=== PATIENT | female | born 1975 | race Caucasian/White ===

== ENCOUNTER 2020-04-13 15:13 | Outpatient (REF) | payer OTHER, SELFPAY ==
--- NOTE | 2020-04-13 15:16 | MR_ITS ---
EXAMINATION: MR BREAST WITHOUT AND WITH CONTRAST, BILATERAL CLINICAL INFORMATION: High-risk screening. Strong family history of breast cancer; sister age 38. Dense breasts. Prior benign biopsies. COMPARISON: 04/10/2019. 01/30/2018. 12/10/2015, and priors. Mammography from 04/28/2019. TECHNIQUE: Imaging was performed with a dedicated breast coil. Prior to the administration of contrast, bilateral axial T1 and bilateral axial T2 weighted sequences were obtained. After the uneventful administration of?6.5 mL of Gadavist, dynamic contrast-enhanced VIBRANT series through the breasts in the axial plane were performed. Subtracted images were performed and reviewed. A delayed sagittal sequence through both breasts was acquired. Additionally, CAD postprocessing, including maximum intensity projections, 3-D reconstructions and kinetic analysis, were performed an independent workstation and reviewed by the interpreting radiologist is a portion of this exam. Images are slightly degraded by motion artifact. FINDINGS: The breasts are comprised of heterogeneous fibroglandular elements. The tissue undergoes mild background enhancement. LEFT BREAST: There is an enhancing 16 mm mass in the retroareolar left lower inner quadrant containing a biopsy clip. Given differences in technique, this is not significantly changed from priors. An oval T2 bright 7 mm mass is present at 9 o'clock (image 58/112) 3.5 cm from the nipple. Not well seen on 2019 exam, but similar in appearance when compared with the 2018 exam. No new left breast mass, dominant non-mass enhancement or architectural distortion. RIGHT BREAST: There is an oval, 12 mm enhancing mass in the right breast 3 o'clock central position projecting 3.5 cm from the nipple (image 60/112). No change compared with prior exams. Clip artifact at 2 o'clock without associated enhancement. There is an oval 12 mm enhancing mass in the 12 o'clock posterior position (image 42/112) unchanged compared with priors. Clip artifact in the deep central right breast without associated enhancement. No new left breast mass, dominant non-mass enhancement or architectural distortion. There is no suspicious internal mammary chain or axillary adenopathy. Limited views of the chest and abdomen are unremarkable. MR/MR breast BI wo/w con IMPRESSION: Multiple bilateral stable breast masses. Overall enhancement has decreased compared with priors. No screening MR evidence of breast malignancy. ASSESSMENT: LEFT BREAST: BI-RADS Category 2, benign findings. RIGHT BREAST: BI-RADS Category 2, benign findings. RECOMMENDATIONS: Repeat bilateral breast MRI in 12 months' time.
== END 2020-04-13 15:14 | disposition home or self-care (01) ==
LOC: HO.MRI 15:13
PROVIDERS: Visit Provider Obstetrics & Gynecology
DX: Z80.3 Family history of malignant neoplasm of breast (principal)
CPT/HCPCS: 77049; A9585

== ENCOUNTER 2020-04-30 09:47 | Outpatient (REF) | payer OTHER, SELFPAY ==
--- NOTE | ~2020-04-30 | MM_ITS ---
EXAMINATION: MM SCREENING DIGITAL BREAST TOMOSYNTHESIS, BILATERAL CLINICAL INFORMATION: Screening. Asymptomatic. Prior history benign bilateral breast biopsies, most recent right 2018 (fibroadenoma). Family history breast cancer sister, age 38. The lifetime risk of breast cancer based on the Tyrer-Cuzick Model is 36%. COMPARISON: Mammography: 04/28/2019, 11/28/2017, 11/22/2017; MRI breasts 04/13/2020. TECHNIQUE: Digital breast tomosynthesis is performed in both the craniocaudal and mediolateral oblique views along with computer-aided detection (CAD). Synthesized 2D images are generated from the tomosynthesis. FINDINGS: The breasts are heterogeneously dense, which may obscure small masses (ACR BI-RADS breast composition Category c). There is a fibronodular parenchymal pattern similar to prior exams. There is no developing density or interval significant mass or architectural abnormality. Biopsy clip marker again seen anterior left breast and 3 biopsy clip markers on the right with stable nodularity central inner right breast. There are no abnormal calcifications. The axilla and skin contours are unremarkable. No significant changes from prior studies. MM/MM tomosynthesis screening BI IMPRESSION: No mammographic evidence of malignancy. ASSESSMENT: BI-RADS 2: Benign RECOMMENDATION: 1. Routine annual mammography screening. 2. The lifetime risk of breast cancer based on the Tyrer-Cuzick Model is 36%. Additional annual adjunct screening with breast MRI may be of benefit in women with a risk score of 20% or greater. This patient's information was entered into a reminder system with a target due date for their next mammogram.
== END 2020-04-30 09:48 | disposition home or self-care (01) ==
LOC: HO.MAMMO 09:47
PROVIDERS: Visit Provider Obstetrics & Gynecology
DX: Z12.31 Encounter for screening mammogram for malignant neoplasm of breast (principal)
CPT/HCPCS: 77063; 77067

== ENCOUNTER 2020-05-17 15:35 | Outpatient (REF) | payer OTHER, SELFPAY | END 2020-05-17 15:36 | disposition home or self-care (01) | LOC: HO.LAB 15:35 | PROVIDERS: PCP Family Medicine; Visit Provider Advanced Practice Midwife | DX: N93.9 Abnormal uterine and vaginal bleeding, unspecified (principal); D24.9 Benign neoplasm of unspecified breast; F39 Unspecified mood [affective] disorder; F17.210 Nicotine dependence, cigarettes, uncomplicated; Z32.02 Encounter for pregnancy test, result negative; Z79.810 Long term (current) use of selective estrogen receptor modulators (SERMs) | CPT/HCPCS: 58100; 81025; 88305 ==

== ENCOUNTER → 2020-06-10 15:13 | Outpatient (BNVA) | payer OTHER, SELFPAY | PROVIDERS: PCP Family Medicine; Visit Provider Internal Medicine Gastroenterology ==

== ENCOUNTER 2020-06-11 11:29 | Outpatient (REF) | payer OTHER, SELFPAY ==
[2020-06-11 13:04] LABS: MANUAL DIFF FLAG NO
[2020-06-11 13:22] LABS: Eosinophils Absolute Auto 0.1 X10*3/uL (0.0-0.4); Eosinophils Percent Auto 1.7 % (0-4); Hematocrit 36.9 % (37-47); Hemoglobin 12.4 g/dl (12.0-16.0); Imm Gran Abs Auto 0.01 X10*3/uL (0.00-0.03); Imm Gran Pct Auto 0.2 % (0.0-0.4); Lymphocytes Absolute Auto 1.7 X10*3/uL (1.2-4.9); Lymphocytes Percent Auto 40.5 % (20-40); Mean Corpuscular HGB Conc 33.6 g/dl (31.0-35.0); Mean Corpuscular Hemoglobin 32.7 pg (27.0-33.0); Mean Corpuscular Volume 97.4 fL (80-98); Mean Platelet Volume 10.9 fL (9.4-12.3); Monocytes Absolute Auto 0.3 X10*3/uL (0.1-1.2); Neutrophils Absolute Auto 2.1 X10*3/uL (2.0-8.3); Neutrophils Percent Auto 50.6 % (45-73); Platelet Count 203 X10*3/uL (160-400); Red Blood Count 3.79 X10*6/uL (4.20-5.50); Red Cell Distribution Width 11.8 % (11.0-16.0); White Blood Count 4.2 X10*3/uL (4.8-10.8)
[2020-06-11 13:24] LABS: C Reactive Protein 0.05 mg/dL (< or = 0.50); Gamma Glutamyl Transpeptidase 74 U/L (7-33)
[2020-06-11 13:49] LABS: Ferritin 84 ng/mL (10-250); Vitamin D 25-OH Total 10.1 ng/mL (>30)
[2020-06-13 21:11] LABS: Transglutaminase Ab IgG 1 U/mL; Transglutaminase IgA 1 U/mL
[2020-06-18 11:24] LABS: Prometheus Celiac Genetics SEE SEPERATE REPORT
== END 2020-06-11 11:30 | disposition home or self-care (01) ==
LOC: HO.LAB 11:29
PROVIDERS: Visit Provider Internal Medicine Gastroenterology
DX: R14.0 Abdominal distension (gaseous) (principal); D64.9 Anemia, unspecified
CPT/HCPCS: 36415; 81382; 82306; 82728; 82977; 83516; 84443; 85025; 86140

== ENCOUNTER 2021-02-03 13:46 | Outpatient (REF) | payer OTHER, SELFPAY ==
--- NOTE | ~2021-02-03 | MR_ITS ---
EXAMINATION: MR NECK WITHOUT AND WITH CONTRAST CLINICAL INFORMATION: Follow up dermoid cyst. COMPARISON: Neck CT dated 11/02/2017. TECHNIQUE: MRI of the neck was obtained using routine sequences without and with contrast. Intravenous contrast: Gadavist 5.5 mL. FINDINGS: Again seen is a 4.8 x 3.6 x 2.8 cm cystic lesion in the midline floor of the mouth elevating the tongue and splaying the genioglossus musculature. The cystic lesion is hyperintense on T2-weighted imaging and isointense to low in signal on the T1-weighted acquisition, demonstrating facilitated diffusion (bright signal on the ADC map) and no discernible associated enhancement. The remaining soft tissues of the neck appear normal. No cervical adenopathy identified. Mild lower cervical spondylosis noted. The craniovertebral junction is normal. The imaged portions of the brain demonstrate no acute abnormality. Rightward nasal septal deviation noted. Trace mucosal thickening in the right maxillary antrum. The orbits are normal. The imaged portions of the brain demonstrate no acute abnormality. MR/MR orbits face neck wo/w con IMPRESSION: Relatively stable 4.8 x 3.6 x 2.8 cm cystic lesion in the midline floor of the mouth. Although facilitated diffusion evident, this lesion may still represent a dermoid/epidermoid cyst. Other differential diagnostic considerations would include a large thyroglossal duct cyst, though somewhat more anterior in position as expected relative to the hyoid bone, a lymphatic malformation, or a foregut duplication cyst.
== END 2021-02-03 13:47 | disposition home or self-care (01) ==
LOC: HO.MRI 13:46
PROVIDERS: Visit Provider Dentist Oral and Maxillofacial Surgery
DX: K09.8 Other cysts of oral region, not elsewhere classified (principal)
CPT/HCPCS: 70543; A9585

== ENCOUNTER 2021-06-25 09:45 | Outpatient (REF) | payer OTHER, SELFPAY ==
--- NOTE | ~2021-06-25 | MM_ITS ---
EXAMINATION: MM SCREENING DIGITAL BREAST TOMOSYNTHESIS, BILATERAL CLINICAL INFORMATION: Screening. Asymptomatic. Family history breast cancer, sister age 38. Personal history benign bilateral breast biopsies. The lifetime risk of breast cancer based on the Tyrer-Cuzick Model is 18%. COMPARISON: Mammography: 04/30/2020, 04/28/2019, 11/28/2017, 11/22/2017, 12/11/2016, 12/10/2015, 10/13/2014, 01/23/2014; MRI breasts 04/13/2020. TECHNIQUE: Digital breast tomosynthesis is performed in both the craniocaudal and mediolateral oblique views along with computer-aided detection (CAD). Synthesized 2D images are generated from the tomosynthesis. Additional left MLO view is provided. FINDINGS: The breasts are heterogeneously dense, which may obscure small masses (ACR BI-RADS breast composition Category c). Fibronodular parenchymal pattern is similar to prior studies. There is no developing density or interval mass or architectural abnormality. Again, there are biopsy clip markers anterior lower inner left breast and 3 clip markers on the right. There are no abnormal calcifications. A few punctate dermal calcifications 5:00 left breast are similar to prior remote exams. The axilla and skin contours are unremarkable. There are no significant changes. MM/MM tomosynthesis screening BI IMPRESSION: No mammographic evidence of malignancy. ASSESSMENT: BI-RADS 2: Benign RECOMMENDATION: Routine annual mammography screening. This patient's information was entered into a reminder system with a target due date for their next mammogram.
== END 2021-06-25 09:46 | disposition home or self-care (01) ==
LOC: HO.MAMMO 09:45
PROVIDERS: PCP Family Medicine; Visit Provider Family Medicine
DX: Z12.31 Encounter for screening mammogram for malignant neoplasm of breast (principal)
CPT/HCPCS: 77063; 77067

== ENCOUNTER 2021-07-27 11:07 | Outpatient (REF) | payer OTHER, SELFPAY ==
--- NOTE | ~2021-07-27 | MR_ITS ---
EXAMINATION: MR BREAST WITHOUT AND WITH CONTRAST, BILATERAL CLINICAL INFORMATION: 46-year-old for high-risk screening family history sister age 38, dense breasts. COMPARISON: MRI 04/13/2020, 04/10/2019, 01/30/2018 and correlation to mammogram of 06/25/2021. TECHNIQUE: Imaging was performed with a dedicated breast coil. Prior to the administration of contrast, bilateral axial T1 and bilateral axial T2 weighted sequences were obtained. After the uneventful administration of?6 mL of Gadavist, dynamic contrast-enhanced VIBRANT series through the breasts in the axial plane were performed. Subtracted images were performed and reviewed. A delayed sagittal sequence through both breasts was acquired. Additionally, CAD post-processing, including maximum intensity projections, 3-D reconstructions and kinetic analysis, were performed an independent workstation and reviewed by the interpreting radiologist is a portion of this exam. FINDINGS: Patient's fibroglandular tissue demonstrates minimal background enhancement. LEFT BREAST: There is a stable oval T2 bright mass in the 9 o'clock retroareolar position, measuring 1.5 cm. This corresponds to a biopsy-proven fibroadenoma. There are no new areas of mass or non-mass enhancement suspicious of malignancy. There are no secondary signs of malignancy such as nipple inversion or duct enhancement. There are no additional findings on T2-weighted imaging or kinetic curve analysis. RIGHT BREAST: There is a stable oval T2 bright mass with a susceptibility artifact in the 3 o'clock position, 3.5 cm from the nipple. This also represents biopsy-proven fibroadenoma. There is a stable oval T2 bright mass in the 12-1 o'clock position, 7.6 cm from the nipple. This too has characteristics of a fibroadenoma. There is a susceptibility artifact at 2 o'clock without associated enhancement. There are no new areas of mass or non-mass enhancement suspicious of malignancy. There are no secondary signs of malignancy such as nipple inversion or duct enhancement. There are no additional findings on T2-weighted imaging or kinetic curve analysis. There is no suspicious internal mammary chain or axillary adenopathy. Limited views of the chest and abdomen are unremarkable. MR/MR breast BI wo/w con IMPRESSION: Oval masses bilaterally consistent with known fibroadenomas. No new MR findings suspicious of malignancy. ASSESSMENT: LEFT BREAST: BI-RADS 2, benign. RIGHT BREAST: BI-RADS 2, benign. RECOMMENDATIONS: Routine mammographic imaging as per most recent study and MRI as per high-risk protocol.
== END 2021-07-27 11:08 | disposition home or self-care (01) ==
LOC: HO.MRI 11:07
PROVIDERS: Visit Provider Obstetrics & Gynecology
DX: R92.2 Inconclusive mammogram (principal); Z80.3 Family history of malignant neoplasm of breast
CPT/HCPCS: 77049; A9585

== ENCOUNTER 2021-10-10 11:23 | Outpatient (REF) | payer OTHER, SELFPAY ==
--- NOTE | ~2021-10-10 | US_ITS ---
EXAMINATION: US PELVIS CLINICAL INFORMATION: Abnormal uterine bleeding COMPARISON: None TECHNIQUE: Ultrasound of the pelvis is performed using both transabdominal and transvaginal transducers along with Doppler. Transvaginal imaging is performed due to inadequate visualization transabdominally. FINDINGS: Uterus: The uterus is anteverted and measures 10.5 x 6.6 x 6.1 cm. The double wall endometrial thickness is 0.5 mm. A 2.7 x 2.1 x 3.2 cm intramural myoma in the right body body. A 2.9 x 2.8 x 2.9 cm intramural myoma in the right fundus. Adnexa: Both ovaries are visualized. There is normal color flow to the adnexa. There is no ovarian torsion. There is no pelvic ascites or fluid collection. Right ovary measures 4.4 x 3.0 x 3.2 cm. The right ovary is remarkable for a 3.8 cm simple appearing benign functional cyst. No follow-up imaging recommended. Left ovary measures 3.1 x 2.6 x 2.7 cm. Left ovary is unremarkable in appearance. US/US pelvic and transvaginal IMPRESSION: 2 intramural uterine myomas measuring 3.2 cm and 2.9 cm. Right ovary is remarkable for a 3.6 cm simple appearing benign functional cyst, no follow-up imaging recommended.
== END 2021-10-10 11:24 | disposition home or self-care (01) ==
LOC: HO.US 11:23
PROVIDERS: PCP Internal Medicine; Visit Provider Advanced Practice Midwife
DX: N93.9 Abnormal uterine and vaginal bleeding, unspecified (principal)
CPT/HCPCS: 58100; 76830; 76856; 81025

== ENCOUNTER 2021-10-10 13:08 | Outpatient (REF) | payer OTHER, SELFPAY ==
[2021-10-11 09:44] LABS: BV Int Neg Control Negative (Negative); BV Int Pos Control Positive (Positive)
== END 2021-10-10 13:09 | disposition home or self-care (01) ==
LOC: HO.LAB 13:08
PROVIDERS: Visit Provider Advanced Practice Midwife
DX: N93.9 Abnormal uterine and vaginal bleeding, unspecified (principal)
CPT/HCPCS: 87480; 87510; 87660; 88305

== ENCOUNTER 2022-01-19 13:12 | Outpatient (REF) | payer OTHER, SELFPAY ==
--- NOTE | ~2022-01-19 | XR_ITS ---
EXAMINATION: XR KNEE, LEFT CLINICAL INFORMATION: Left knee pain. COMPARISON: None. TECHNIQUE: 4 views of the left knee. FINDINGS: There is mild depression of the medial femoral condyle with some adjacent small calcific/bony densities seen. Findings are suggestive of either SONK (spontaneous osteonecrosis of the knee) or an insufficiency fracture. The age is indeterminate.. No other abnormality is seen. No joint effusion present. XR/XR knee LT 3V IMPRESSION: Findings suggestive of osteonecrosis versus insufficiency fracture of the medial femoral condyle.
== END 2022-01-19 13:13 | disposition home or self-care (01) ==
LOC: HO.XRAY 13:12
PROVIDERS: PCP Internal Medicine; Visit Provider Internal Medicine
DX: M25.562 Pain in left knee (principal)
CPT/HCPCS: 73562

== ENCOUNTER 2022-02-07 17:50 | Outpatient (REF) | payer OTHER, SELFPAY ==
--- NOTE | ~2022-02-07 | MR_ITS ---
EXAMINATION: MR KNEE WITHOUT CONTRAST, LEFT CLINICAL INFORMATION: Left knee pain. Femoral condyle osteochondral lesion. COMPARISON: Left knee radiographs dated 01/19/2022. TECHNIQUE: MRI of the knee without contrast was performed using routine sequences on a high-field scanner. FINDINGS: MENISCI: Medial Meniscus: Intact. Lateral Meniscus: Intact. LIGAMENTS: Cruciate: Intact. Collateral: Intact. EXTENSOR MECHANISM: Intact. ARTICULAR CARTILAGE/BONE: Patellofemoral Compartment: Intact articular cartilage. Medial Compartment: Osteochondral lesion at the weightbearing medial femoral condyle measuring approximately 1.1 x 1.3 cm (AP by ML) with a depth of 0.3 cm. Overlying articular cartilage signal heterogeneity and surface irregularity with small foci of low T1/T2 signal. There is fluid signal along the undersurface of the lesion, indicating instability. Lateral Compartment: Intact articular cartilage. JOINT FLUID AND BURSAE: Trace joint effusion and trace Westbrook's cyst. MR/MR knee LT wo con IMPRESSION: 1. Osteochondral lesion at the weightbearing medial femoral condyle measuring up to 1.1 x 1.3 cm (AP by ML) with a depth of 0.3 cm. Fluid signal along the undersurface of the lesion, indicating instability. 2. Trace joint effusion and trace Westbrook's cyst. 3. No acute meniscal or ligamentous injury.
== END 2022-02-07 17:51 | disposition home or self-care (01) ==
LOC: HO.MRI 17:50
PROVIDERS: Visit Provider Orthopaedic Surgery
DX: M95.8 Other specified acquired deformities of musculoskeletal system (principal)
CPT/HCPCS: 73721

== ENCOUNTER → 2022-05-04 13:53 | Outpatient (BNVA) | payer OTHER, SELFPAY | PROVIDERS: PCP Internal Medicine; Visit Provider Orthopaedic Surgery | DX: Z13.89 Encounter for screening for other disorder (principal) ==

== ENCOUNTER 2022-05-19 14:37 | Outpatient (REF) | payer OTHER, SELFPAY ==
[2022-05-19 15:05] LABS: MANUAL DIFF FLAG NO
[2022-05-19 15:17] LABS: Basophils Absolute Auto 0.1 X10*3/uL (0.0-0.2); Eosinophils Absolute Auto 0.1 X10*3/uL (0.0-0.4); Eosinophils Percent Auto 0.8 % (0-4); Hemoglobin 11.7 g/dl (12.0-16.0); Imm Gran Abs Auto 0.02 X10*3/uL (0.00-0.03); Imm Gran Pct Auto 0.3 % (0.0-0.4); Lymphocytes Absolute Auto 1.8 X10*3/uL (1.2-4.9); Lymphocytes Percent Auto 30.7 % (20-40); Mean Corpuscular HGB Conc 33.4 g/dl (31.0-35.0); Mean Corpuscular Volume 98.6 fL (80.0-98.0); Mean Platelet Volume 9.7 fL (9.4-12.3); Monocytes Absolute Auto 0.4 X10*3/uL (0.1-1.2); Monocytes Percent Auto 6.9 % (2-11); Neutrophils Absolute Auto 3.6 x10*3/uL (2.0-8.3); Neutrophils Percent Auto 60.3 % (45-73); Platelet Count 290 X10*3/uL (160-400); Red Blood Count 3.55 X10*6/uL (4.20-5.50); Red Cell Distribution Width 12.7 % (11.0-16.0); White Blood Count 5.9 X10*3/uL (4.8-10.8)
[2022-05-19 15:28] LABS: Appearance Urine Cloudy; Color Urine Yellow; Glucose Urine UA Negative (Negative); Leukocyte Esterase Urine Trace (Negative); Nitrite Urine Negative (Negative); PH 5.5 (5.0-9.0); Specific Gravity - Urine 1.025 (1.005-1.025); UMIC TRIGGER UACC YES; Urine Blood Large (3+) (Negative); Urine Ketones 15 mg/dL (Negative); Urine Protein 30 (1+) mg/dL (Neg-Trace)
[2022-05-19 15:30] LABS: Bacteria Urine 1+ (None Seen); Hyaline Casts Urine 0-2 /LPF (0-2); RBC Urine >20 /HPF (0-2); UACC Culture Trigger YES
[2022-05-19 16:10] LABS: Alanine Aminotransferase 13 U/L (0-31); Albumin Level 4.3 g/dL (3.5-5.0); Alkaline Phosphatase 28 U/L (39-117); Anion Gap 11 (12-20); Aspartate Amino Transferase 28 U/L (5-31); Bilirubin Total 0.4 mg/dL (0.0-1.0); Blood Urea Nitrogen 12 mg/dL (9-16); Calcium 9.2 mg/dL (8.4-10.2); Carbon Dioxide 27 mmol/L (22-29); Chloride 107 mmol/L (96-108); Cholesterol 162 mg/dL; Estimated Glomerular Filt Rate > 60; Glucose Fasting 90 mg/dL (60-99); HDL Cholesterol 57 mg/dL; Iron 58 mcg/dL (30-160); LDL Cholesterol Calculated 97 mg/dl; Percent Iron Saturation 17 % (15-50); Potassium 3.9 mmol/L (3.3-5.1); Sodium 141 mmol/L (135-145); Total Iron Binding Capacity 345 mcg/dL (228-428); Total Protein 6.9 g/dL (6.5-8.0); Triglycerides 44 mg/dL; Unsaturated Iron Binding 287 ug/dL
[2022-05-19 16:41] LABS: Folate 17.6 ng/mL (> or = 4.0); TSH reflex Free T4 2.54 uIU/mL (0.32-4.0); Vitamin B12 657 pg/mL (200-900); Vitamin D 25-OH Total 37.1 ng/mL (>30)
== END 2022-05-19 14:38 | disposition home or self-care (01) ==
LOC: HO.LAB 14:37
PROVIDERS: PCP Internal Medicine; Visit Provider Internal Medicine
DX: Z00.00 Encounter for general adult medical examination without abnormal findings (principal); R30.0 Dysuria; L65.9 Nonscarring hair loss, unspecified; E55.9 Vitamin D deficiency, unspecified; E53.8 Deficiency of other specified B group vitamins; E78.00 Pure hypercholesterolemia, unspecified; D50.9 Iron deficiency anemia, unspecified
CPT/HCPCS: 36415; 80053; 80061; 81001; 82306; 82607; 82746; 83540; 84443; 85025; 87086

== ENCOUNTER 2022-07-24 12:06 | Outpatient (REF) | payer OTHER, SELFPAY ==
--- NOTE | ~2022-07-24 | MM_ITS ---
EXAMINATION: MM SCREENING DIGITAL BREAST TOMOSYNTHESIS, BILATERAL CLINICAL INFORMATION: Screening. Asymptomatic. Family history premenopausal breast cancer, sister age 38. The lifetime risk of breast cancer based on the Tyrer-Cuzick Model is 23%. COMPARISON: Prior mammography exams, including most recent 06/25/2021; MR breasts 07/27/2021. TECHNIQUE: Digital breast tomosynthesis is performed in both the craniocaudal and mediolateral oblique views along with computer-aided detection (CAD). Synthesized 2D images are generated from the tomosynthesis. FINDINGS: The breasts are heterogeneously dense, which may obscure small masses (ACR BI-RADS breast composition Category c). Parenchymal pattern is similar to prior studies and there is no developing density or significant mass or architectural abnormality. No abnormal calcifications. The axilla and skin contours are unremarkable. There are biopsy clip markers again seen overlying stable nodularity anterior medial left breast, and also right breast right breast central posterior inner, and 2 sites mid central 3:00 right breast. No significant changes from prior studies. MM/MM tomosynthesis screening BI IMPRESSION: No mammographic evidence of malignancy. ASSESSMENT: BI-RADS 2: Benign RECOMMENDATION: -Routine annual mammography screening. -The lifetime risk of breast cancer based on the Tyrer-Cuzick Model is 23%. Additional annual adjunct screening with breast MRI may be of benefit in women with a risk score of 20% or greater and dense breast tissue composition. This patient's information was entered into a reminder system with a target due date for their next mammogram.
== END 2022-07-24 12:07 | disposition home or self-care (01) ==
LOC: HO.MAMMO 12:06
PROVIDERS: PCP Internal Medicine; Visit Provider Obstetrics & Gynecology
DX: Z12.31 Encounter for screening mammogram for malignant neoplasm of breast (principal)
CPT/HCPCS: 77063; 77067

== ENCOUNTER 2022-08-02 13:15 | Outpatient (REF) | payer OTHER, SELFPAY ==
[2022-08-02 16:01] LABS: Erythrocyte Sedimentation Rate 7 MM/HR (0-20)
[2022-08-02 16:27] LABS: C Reactive Protein < 0.10 mg/dL (< or = 0.50)
[2022-08-02 18:30] LABS: Rheumatoid Factor < 13.0 IU/mL (<15.0)
[2022-08-06 13:58] LABS: Anti Nuclear Antibody Screen NEGATIVE (NEGATIVE)
[2022-08-07 22:24] LABS: Antibody to SS-A Antigen <1.0 NEG AI (<1.0 NEG); Antibody to SS-B Antigen <1.0 NEG AI (<1.0 NEG); Scleroderma 70 Antibody <1.0 NEG AI (<1.0 NEG)
== END 2022-08-02 13:16 | disposition home or self-care (01) ==
LOC: HO.LAB 13:15
PROVIDERS: PCP Internal Medicine; Visit Provider Internal Medicine
DX: H04.129 Dry eye syndrome of unspecified lacrimal gland (principal); M35.01 Sjogren syndrome with keratoconjunctivitis
CPT/HCPCS: 36415; 85652; 86038; 86140; 86235; 86431

== ENCOUNTER → 2022-08-08 12:52 | Outpatient (BNVA) | payer OTHER, SELFPAY | PROVIDERS: PCP Internal Medicine; Visit Provider Student in an Organized Health Care Education/Training Program ==

== ENCOUNTER 2022-08-16 11:06 | Outpatient (REF) | payer OTHER, SELFPAY ==
--- NOTE | ~2022-08-16 | MR_ITS ---
EXAMINATION: MR BREAST WITHOUT AND WITH CONTRAST, BILATERAL CLINICAL INFORMATION: High-risk screening. Family history breast cancer. COMPARISON: MRI 07/27/2021, 04/13/2020 TECHNIQUE: Imaging was performed with a dedicated breast coil. Prior to the administration of contrast, bilateral axial T1 and bilateral axial T2 weighted sequences were obtained. After the uneventful administration of?5.5 mL of Gadavist, dynamic contrast-enhanced VIBRANT series through the breasts in the axial plane were performed. Subtracted images were performed and reviewed. A delayed sagittal sequence through both breasts was acquired. Additionally, CAD post-processing, including maximum intensity projections, 3-D reconstructions and kinetic analysis, were performed an independent workstation and reviewed by the interpreting radiologist is a portion of this exam. FINDINGS: The patient's fibroglandular tissue demonstrates mild background enhancement. LEFT BREAST: No suspicious masslike or non-masslike enhancement. No abnormal skin thickening or nipple retraction. No abnormal architectural distortion. Review of the T2 weighted images demonstrates no fibrocystic changes or dilated ducts. Review of kinetic images reveals no additional findings. RIGHT BREAST: No suspicious masslike or non-masslike enhancement. No abnormal skin thickening or nipple retraction. No abnormal architectural distortion. Review of the T2 weighted images demonstrates no fibrocystic changes or dilated ducts. Review of kinetic images reveals no additional findings. There is no suspicious internal mammary chain or axillary adenopathy. Limited views of the chest and abdomen are unremarkable. MR/MR breast BI wo/w con IMPRESSION: No MR specific evidence of malignancy. ASSESSMENT: LEFT BREAST: BI-RADS 1-Negative RIGHT BREAST: BI-RADS 1-Negative RECOMMENDATIONS: Clinical follow-up. Continued annual mammographic surveillance. Further breast MRI as risk factors dictate.
== END 2022-08-16 11:07 | disposition home or self-care (01) ==
LOC: HO.MRI 11:06
PROVIDERS: PCP Internal Medicine; Visit Provider Obstetrics & Gynecology
DX: Z13.29 Encounter for screening for other suspected endocrine disorder (principal); Z80.3 Family history of malignant neoplasm of breast
CPT/HCPCS: 77049; A9585

== ENCOUNTER 2022-11-25 20:10 | Emergency (ER) | payer OTHER, SELFPAY ==
--- NOTE | ~2022-11-25 | US_ITS ---
EXAMINATION: US VENOUS ULTRASOUND WITH DOPPLER LOWER EXTREMITY, LEFT CLINICAL INFORMATION: Pain. COMPARISON: None available. TECHNIQUE: Ultrasound of the deep veins is performed from the hip to the calf with compression sonography and color and pulse Doppler assessment. Spectral analysis with color-flow imaging is performed. FINDINGS: There is normal venous compression and respiratory variation and augmented flow. The visualized common femoral vein, superficial femoral vein, profunda femoral vein, popliteal vein, and the trifurcation region shows no evidence of deep venous thrombosis. There is no significant popliteal fossa cyst. If the patient's symptoms persist, followup ultrasound in 5 days 7 days might be of value to exclude proximal propagation from a non-visualized calf vein. US/US venous duplex LE LT IMPRESSION: No DVT demonstrated in the left lower extremity.
--- NOTE | 2022-11-25 20:56 | ED.LOWEXIN ---
HPI - Extremity Injury (Lower) General Stated Complaint: Left lower calf pain Time Seen by Provider: 11/25/22 20:12 Source: patient and family Mode of arrival: ambulatory Limitations: no limitations History of Present Illness HPI Narrative: 47 yo female family history of breast cancer on tamoxifen prevention who presents to the ER for evaluation of acute onset of left calf pain that started last night. Patient states she had a severe cramp that woke her up around 04:00. She has been getting cramps intermittently since she has been on tamoxifen. She states she woke up with some ongoing pain today and noticed that her left calf was slightly more swollen than the right. She started walking with a limp this evening prompting ER evaluation. Patient of note just arrived back from vacation in [facility], had a long flight. She denies any chest pain or shortness of breath. No personal history of blood clots. complaint: leg injury Onset (ago): hour(s) Type of Injury: unknown Place: home Relieving factors: immobilization and rest Exacerbating factors: weight bearing and palpation Associated symptoms: able to partially bear weight Other symptoms: none Related Data Home Medications Medication Instructions Recorded Confirmed multivitamin 1 tab PO DAILY 08/08/22 Previous Rx's Medication Instructions Recorded tamoxifen 20 mg tablet 20 mg PO DAILY #60 tabs 10/16/22 Allergies Allergy/AdvReac Type Severity Reaction Status Date / Time No Known Allergies Allergy Verified 08/08/22 13:04 [No Known Allergies*] Review of Systems Review of Systems: Yes all other systems are reviewed and are negative PMFSH Past Medical History Medical History Chronic anemia Fibroadenoma H/O sigmoidoscopy Mood disorder Postprandial abdominal bloating Vitamin D deficiency Surgical History H/O breast biopsy Hx of colonoscopy Family History Family History Sister Breast cancer, Onset Age: 38 Maternal Grandmother Endometrial cancer Colon cancer Paternal Uncle Lung cancer Maternal Uncle Multiple myeloma Maternal Uncle Bladder cancer Maternal Aunt Cancer of kidney Mother IBS (irritable bowel syndrome) Other Family history of Alayna thyroiditis Family history of lupus erythematosus Family history of vasculitis Social History Social History Household Members: Spouse and Children Housing: House Alcohol intake: current Alcohol intake frequency: holidays/special occasions only Alcohol type: wine Patient Tobacco Use Status: Never used Tobacco Second Hand Smoke Exposure: No Advance Directives: No Advance Directives Information Provided: Yes service: No Current occupational status: employed Cognitive needs: No Hearing needs: No Vision needs: Yes Physical Exam Vital Signs: Appearance: Alert. Oriented X3. No acute distress. HEENT: normal inspection CVS: Normal heart rate and rhythm. Pulses normal. Respiratory: No respiratory distress. Skin: Skin warm and dry. Normal skin color. Normal skin turgor. No rashes. Extremities: normal inspection to the bilateral lower extremities, no significant swelling appreciated. no pitting edema. mild calf tenderness proximally. no erythema or warmth. normal inspection of the ankle, normal ROM Neuro: Oriented X 3. No motor deficit. No sensory deficit. Medical Decision Making Medical Decision Making MDM Narrative: 39-year-old female presents to the ER for evaluation of left calf pain and swelling that started at 04:00. Examination reveals very minimal swelling, mild tenderness to palpation of the calf muscle. Neurovascularly intact distally. No skin changes. No erythema or warmth. Ultrasound reviewed, no evidence of DVT. This most likely muscular in nature. We discussed supportive care with rest, ice, compression, elevation, NSAIDs for pain control. Patient agrees with plan and is stable for discharge home. Differential Diagnosis Differential Diagnoses: The differential diagnosis associated with the presentation includes DVT, muscle strain, muscle spasm, dehydration, electrolyte abnormality, pulled muscle Independent Interpretation I performed an independent interpretation of an: Ultrasound Interpretation: No appreciated blood clot, agrees radiologist read Radiology Impression Discussion of test interpretation with radiology: I have reviewed the radiologist's reading. Radiologist Impression: EXAMINATION:? US VENOUS ULTRASOUND WITH DOPPLER LOWER EXTREMITY, LEFT CLINICAL INFORMATION:? Pain. COMPARISON:? None available. TECHNIQUE: Ultrasound of the deep veins is performed from the hip to the calf with compression sonography and color and pulse Doppler assessment. Spectral analysis with color-flow imaging is performed. FINDINGS: There is normal venous compression and respiratory variation and augmented flow. The visualized common femoral vein, superficial femoral vein, profunda femoral vein, popliteal vein, and the trifurcation region shows no evidence of deep venous thrombosis. ? There is no significant popliteal fossa cyst. If the patient's symptoms persist, followup ultrasound in 5 days 7 days might be of value to exclude proximal propagation from a non-visualized calf vein. US/US venous duplex LE LT IMPRESSION: No DVT demonstrated in the left lower extremity. Independent Historian Clinical information obtained from an independent historian. History obtained from or confirmed by: Spouse External Record Review External record reviewed: Prior outpatient labs Tests considered The following testing was considered but not selected: labs including electrolytes and TSH were considered Prescription Management I considered prescription management with: Pain Medication Chronic Conditions Patient?s care impacted by: Other (family hx breast cancer, on tamoxifen) Critical Care Time Critical Care Time Critical Care Time: No Discharge Plan Discharge Clinical Impression: Pain of left calf Patient Disposition: Home, Self-Care Instructions: Leg Cramps (ED) Prescriptions: No Action tamoxifen 20 mg Tablet 20 mg PO DAILY Qty: 60 2RF multivitamin Tablet 1 tab PO DAILY
[2022-11-25 21:00] VITALS: BMI 25.8
--- NOTE | 2022-11-25 21:00 | PC.NURSE ---
Patient seen and discharged by provider. Provider aware that patient had no vitals done and okayed it.
== END 2022-11-25 21:00 | disposition home or self-care (01) ==
PROVIDERS: Emergency Provider Student in an Organized Health Care Education/Training Program
DX: M79.662 Pain in left lower leg (principal)
CPT/HCPCS: 93971; 99282; 99284

== ENCOUNTER 2022-12-07 14:05 | Outpatient (AMB) | payer OTHER, SELFPAY ==
--- NOTE | 2022-12-07 14:12 | A.OFFVIS_ITS ---
Intake Intake Visit Reasons: OV- DEXA body composition scan F/U Intake Note: Steven is a 47 year old female who presents today for a follow up of her DEXA scan Allergies No Known Allergies [No Known Allergies*] Allergy (Verified 08/08/22 13:04) HPI OV- DEXA body composition scan F/U HPI Details This is a 39-year-old woman who comes in today with questions about her DEXA scan. She is in the 4th percentile of knee muscle mass to I ratio consistent with sarcopenia. She feels well. She works out regularly. She would like to put on his more muscle mass. Because of the weight lifting she has been having some right forearm pain that feels muscular. FOR[facility]LY [facility] Medical History Chronic anemia Fibroadenoma H/O sigmoidoscopy Mood disorder Postprandial abdominal bloating Vitamin D deficiency Surgical History H/O breast biopsy Hx of colonoscopy Family History Sister Breast cancer, Onset Age: 38 Maternal Grandmother Endometrial cancer Colon cancer Paternal Uncle Lung cancer Maternal Uncle Multiple myeloma Maternal Uncle Bladder cancer Maternal Aunt Cancer of kidney Mother IBS (irritable bowel syndrome) Other Family history of Alayna thyroiditis Family history of lupus erythematosus Family history of vasculitis Social History Household Members: Spouse and Children Housing: House Alcohol intake: current Alcohol intake frequency: holidays/special occasions only Alcohol type: wine Patient Tobacco Use Status: Never used Tobacco Second Hand Smoke Exposure: No service: No Current occupational status: employed Cognitive needs: No Hearing needs: No Vision needs: Yes Physical Exam Extrem Other: Slender woman in no acute distress No tenderness over the right lateral epicondyle but soreness in to the muscle body of the extensor wad No pain with resisted wrist extension Results Reviewed Results Reviewed: DEXA scan results reviewed and she does indeed have a low lean muscle mass to high ratio this is used as a proxy for sarcopenia. Assessment & Plan Assessment & Plan (1) Lateral epicondylitis, right elbow: Code(s): M77.11 - Lateral epicondylitis, right elbow Plan: Mild lateral epicondylitis. I reviewed the etiology of this recommend abstaining from exacerbating activity. (2) Protein modification diet monitoring encounter: Code(s): Z71.3 - Dietary counseling and surveillance Plan: We discussed increasing protein intake. We also discussed some increased resistance training. She would like to repeat her DEXA scan in 4 months I think this is reasonable. She will contact me around that time or prior to that if any questions arise. Coding Level of Care Code Est Pt Level 4 (59190) Diagnoses Lateral epicondylitis, right elbow M77.11 Protein modification diet monitoring encounter Z71.3
== END 2022-12-07 14:49 | disposition home or self-care (01) ==
PROVIDERS: PCP Internal Medicine; Visit Provider Orthopaedic Surgery
DX: M77.11 Lateral epicondylitis, right elbow (principal); Z71.3 Dietary counseling and surveillance
CPT/HCPCS: 99213

== ENCOUNTER → 2022-12-07 14:05 | Outpatient (BNVA) | payer OTHER, SELFPAY | PROVIDERS: PCP Internal Medicine; Visit Provider Orthopaedic Surgery ==

== ENCOUNTER 2022-12-14 15:58 | Outpatient (REF) | payer OTHER, SELFPAY ==
[2022-12-19 21:08] LABS: HPV mRNA E6/E7 rflx Not Detected (Not Detected)
== END 2022-12-14 15:59 | disposition home or self-care (01) ==
LOC: HO.LNP 15:58
PROVIDERS: PCP Internal Medicine; Visit Provider Advanced Practice Midwife
DX: Z01.419 Encounter for gynecological examination (general) (routine) without abnormal findings (principal); Z11.51 Encounter for screening for human papillomavirus (HPV)
CPT/HCPCS: 87624; 88142

== ENCOUNTER 2022-12-14 15:58 | Outpatient (AMB) | payer OTHER, SELFPAY ==
--- NOTE | 2022-12-14 16:00 | MHC.OFFVIS ---
Intake Vital Signs 12/14/22 16:01 Height 5 ft 6 in Weight 128 lb BMI 20.7 BP 106/62 Intake Visit Reasons: Intake Note: The patient agreed to use of a medical claims assistant during this encounter. Scribed for TATIANA Reynolds by Tania Garland medical claims assistant, on 12/14/2022 at 4:12 pm EST. Bi Application Developer: Bi Application Developer Present (Ava) Allergies No Known Allergies [No Known Allergies*] Allergy (Verified 12/14/22 16:01) Is last menstrual period known: Yes Last menstrual period: 10/16/22 HPI HPI Comments History of Present Illness Details She is a premenopausal woman presenting for annual exam. Patient admits she tries to eat a healthy diet including Calcium and Vitamin D. She stays active with exercise. Currently sexually active. Reports irregular menses. Denies hot flashes. Denies vaginal itching and irritation. STD screening offered; she accepts. Denies family hx of ovarian cancer. Last pap smear 12/07/17. Last mammogram 07/24/22. UTD on colonoscopy. [facility]LY [facility] Medical History Vitamin D deficiency Postprandial abdominal bloating Chronic anemia H/O sigmoidoscopy Mood disorder Fibroadenoma Surgical History Hx of colonoscopy H/O breast biopsy Family History Sister Breast cancer, Onset Age: 38 Maternal Grandmother Endometrial cancer Colon cancer Paternal Uncle Lung cancer Maternal Uncle Multiple myeloma Maternal Uncle Bladder cancer Maternal Aunt Cancer of kidney Mother IBS (irritable bowel syndrome) FH: HTN (hypertension) Father FH: HTN (hypertension) Other Family history of Alayna thyroiditis Family history of lupus erythematosus Family history of vasculitis Social History Household Members: Spouse and Children Housing: House Alcohol intake: current Alcohol intake frequency: holidays/special occasions only Alcohol type: wine Patient Tobacco Use Status: Never used Tobacco Second Hand Smoke Exposure: No service: No Current occupational status: employed Cognitive needs: No Hearing needs: No Vision needs: Yes Female Reproductive History Menstrual Duration of menses: 3-5 days Date of last menstrual period: 10/16/22 control method: condoms Total pregnancies: 2 Full term: 2 Number of Living Children: 2 Date of last pap smear: 12/07/17 (neg pap and hpv) Date of Mammogram: 07/24/22 (Birad 2 MRI 08/16/22) History of abnormal mammogram: Yes Physical Exam Vital Signs: Last Vital Signs BP 106/62 12/14/22 16:01 BMI result Body Mass Index 20.7 Const General: cooperative, healthy appearing, no acute distress, well developed and alert Orientation/consciousness: patient oriented x3 HEENT Head: Yes normal to inspection Eyes General: appearance normal, both eyes and all related structures Neck Neck: Yes normal visual inspection Thyroid: Thyroid normal Chest Chest palpation & inspection: normal inspection of the chest Breast/axilla inspection: normal inspection of the breasts (no puckering, dimpling, peau de orange, retraction, discharge, masses) Breast/axilla palpation: normal palpation of the breasts Resp Effort & Inspection: normal respiratory effort GI Inspection: Yes normal to inspection Palpation (GI): Soft to palpation (to palpation) Rectal Exam - Female: deferred General: Yes bladder normal to inspection External Female Exam: normal external appearance and normal appearance of the urethra Speculum Exam - Vagina: normal appearance of the vagina, normal palpation and normal vaginal discharge Speculum Exam - Cervix: normal appearance of the cervix and normal palpation Bimanual exam- vagina & uterus: normal palpation and normal palpation Bimanual Exam- Adnexa, other: normal adnexae and no masses Skin General skin exam: no rashes or lesions noted Neuro General: patient oriented x3 Cognition (Neuro): normal cognition Extrem General: Yes normal to inspection Psych Attitude: cooperative Thought process: Normal thought process present Assessment & Plan Assessment & Plan (1) Annual physical exam: Code(s): Z00.00 - Encounter for general adult medical examination without abnormal findings Plan: Discussed: Current recommendations for pap smears per ASCCP guidelines. Breast awareness and periodic self breast exams. Maintaining a healthy lifestyle including a well balanced diet including yogurt for Vitamin D and routine exercise including yoga. Monitor periods, report any unscheduled bleeding, bleeding episodes less than 21 days apart or heavy prolonged menstrual bleeding. Encouraged to use condoms for prevention. All of her questions and concerns were addressed to the best of my ability. RTO in one year for AG. Orders: Orders Pap Smear Today Z01.419 - Encounter for gynecological examination (general) (routine) without abnormal findings Coding Level of Care Code Est Pt Prev Care 40-64y(22370) Diagnoses Annual physical exam Z00.00
[2022-12-14 16:01] VITALS: BP 106/62; BMI 20.7
== END 2022-12-14 16:31 | disposition home or self-care (01) ==
PROVIDERS: PCP Internal Medicine; Visit Provider Advanced Practice Midwife
DX: Z01.419 Encounter for gynecological examination (general) (routine) without abnormal findings (principal)
CPT/HCPCS: 99396

== ENCOUNTER 2023-02-12 12:11 | Outpatient (REF) | payer OTHER, SELFPAY ==
[2023-02-12 12:56] LABS: MANUAL DIFF FLAG NO
[2023-02-12 13:36] LABS: Basophils Absolute Auto 0.1 X10*3/uL (0.0-0.2); Basophils Percent Auto 1.4 % (0-2); Eosinophils Absolute Auto 0.1 X10*3/uL (0.0-0.4); Hematocrit 34.8 % (37.0-47.0); Hemoglobin 11.8 g/dl (12.0-16.0); Imm Gran Abs Auto 0.01 X10*3/uL (0.00-0.03); Imm Gran Pct Auto 0.2 % (0.0-0.4); Lymphocytes Absolute Auto 1.9 X10*3/uL (1.2-4.9); Lymphocytes Percent Auto 37.7 % (20-40); Mean Corpuscular HGB Conc 33.9 g/dl (31.0-35.0); Mean Corpuscular Hemoglobin 33.4 pg (27.0-33.0); Mean Corpuscular Volume 98.6 fL (80.0-98.0); Mean Platelet Volume 10.4 fL (9.4-12.3); Monocytes Absolute Auto 0.3 X10*3/uL (0.1-1.2); Monocytes Percent Auto 5.5 % (2-11); Neutrophils Absolute Auto 2.7 x10*3/uL (2.0-8.3); Neutrophils Percent Auto 54.2 % (45-73); Platelet Count 272 X10*3/uL (160-400); Red Blood Count 3.53 X10*6/uL (4.20-5.50); Red Cell Distribution Width 12.1 % (11.0-16.0); White Blood Count 4.9 X10*3/uL (4.8-10.8)
[2023-02-12 14:44] LABS: Alanine Aminotransferase 10 U/L (0-31); Albumin Level 4.2 g/dL (3.5-5.0); Alkaline Phosphatase 27 U/L (39-117); Anion Gap 13 (12-20); Aspartate Amino Transferase 22 U/L (5-31); Bilirubin Total 0.3 mg/dL (0.0-1.0); Blood Urea Nitrogen 12 mg/dL (9-16); Calcium 9.4 mg/dL (8.4-10.2); Carbon Dioxide 24 mmol/L (22-29); Chloride 107 mmol/L (96-108); Estimated Glomerular Filt Rate > 60; Ferritin 41 ng/mL (10-250); Glucose Random 88 mg/dL (60-115); Potassium 3.8 mmol/L (3.3-5.1); Sodium 140 mmol/L (135-145); Total Protein 7.2 g/dL (6.5-8.0); Vitamin D 25-OH Total 41.4 ng/mL (>30)
[2023-02-13 20:59] LABS: DHEA Sulfate 146 mcg/dL (15-205)
[2023-02-15 01:03] LABS: Zinc 101 mcg/dL (60-130)
[2023-02-18 12:03] LABS: Testosterone, Total 18 ng/dL (2-45)
[2023-02-19 10:54] LABS: Anti Nuclear Antibody Screen NEGATIVE (NEGATIVE)
== END 2023-02-12 12:12 | disposition home or self-care (01) ==
LOC: HO.LAB 12:11
PROVIDERS: PCP Internal Medicine; Visit Provider Physician Assistant Medical
DX: L65.9 Nonscarring hair loss, unspecified (principal); L65.8 Other specified nonscarring hair loss
CPT/HCPCS: 36415; 80053; 82306; 82627; 82728; 84402; 84403; 84443; 84630; 85025; 86038

== ENCOUNTER 2023-03-07 11:02 | Day surgery (SDC) | payer OTHER, SELFPAY ==
[2023-03-05 14:44] VITALS: BMI 20.2
--- NOTE | 2023-03-06 08:59 | HO.ANESPROP2 ---
Documented by User: Janet Conway NP 03/06/23 08:59 HPI - Anesthesia Eval Consult details Narrative: 47yo F for Colonoscopy PMFSH Active Problems Active Problems: All Active Problems (Updated 03/05/23 @ 14:43 by Kayla Segura RN) Protein modification diet monitoring encounter (Acute) Lateral epicondylitis, right elbow (Acute) Hematochezia (Acute) Raynaud phenomenon (Acute) Keratoconjunctivitis sicca (Acute) Dry eye syndrome (Acute) Constipation (Acute) History of anemia (Acute) Alopecia (Acute) Annual physical exam (Acute) Osteochondral defect of femoral condyle (Acute) Insufficiency fracture of femur (Acute) Heartburn (Acute) Left knee pain (Acute) Low vitamin D level (Acute) Screening for colon cancer (Acute) Abnormal uterine bleeding (AUB) (Acute) FH: breast cancer (Chronic) Mood disorder (Acute) Vitamin D deficiency (Acute) Hx of colonoscopy (Acute) Postprandial abdominal bloating (Acute) Chronic anemia (Acute) Past Medical History Medical History (Updated 03/05/23 @ 14:43 by Kayla Segura RN) Raynauds phenomenon Vitamin D deficiency Postprandial abdominal bloating Chronic anemia H/O sigmoidoscopy Mood disorder Fibroadenoma Family History Family History Sister Breast cancer, Onset Age: 38 Maternal Grandmother Endometrial cancer Colon cancer Paternal Uncle Lung cancer Maternal Uncle Multiple myeloma Maternal Uncle Bladder cancer Maternal Aunt Cancer of kidney Mother IBS (irritable bowel syndrome) FH: HTN (hypertension) Father FH: HTN (hypertension) Other Family history of Alayna thyroiditis Family history of lupus erythematosus Family history of vasculitis Surgical History Surgical History Hx of colonoscopy H/O breast biopsy Social History Social History Household Members: Spouse and Children Housing: House Alcohol intake: current Alcohol intake frequency: holidays/special occasions only Alcohol type: wine Patient Tobacco Use Status: Never used Tobacco Second Hand Smoke Exposure: No service: No Current occupational status: employed Cognitive needs: No Hearing needs: No Vision needs: Yes Meds Allergies Allergy/AdvReac Type Severity Reaction Status Date / Time No Known Allergies Allergy Verified 12/14/22 16:01 [No Known Allergies*] Home Medications Medication Instructions Recorded Confirmed Last Taken Type multivitamin 1 tab PO DAILY 08/08/22 03/05/23 Unknown History Exam Height,Weight and Vital Signs: Height 5 ft 6 in Weight 56.699 kg Pertinent Lab Results Pertinent Lab Results: Laboratory Tests 02/12/23 12:54 WBC 4.9 Hgb 11.8 L Hct 34.8 L Plt Count 272 Sodium 140 Potassium 3.8 Chloride 107 Carbon Dioxide 24 BUN 12 Creatinine 0.60 Assessment and Plan Assessment Anesthesia Assessment: Chart Reviewed Documented by User: Ortega Woodard MD 03/07/23 13:14 [facility] Past Medical History Medical History (Updated 03/05/23 @ 14:43 by Kayla Segura RN) Raynauds phenomenon Vitamin D deficiency Postprandial abdominal bloating Chronic anemia H/O sigmoidoscopy Mood disorder Fibroadenoma Patient : No Family History Family History Sister Breast cancer, Onset Age: 38 Maternal Grandmother Endometrial cancer Colon cancer Paternal Uncle Lung cancer Maternal Uncle Multiple myeloma Maternal Uncle Bladder cancer Maternal Aunt Cancer of kidney Mother IBS (irritable bowel syndrome) FH: HTN (hypertension) Father FH: HTN (hypertension) Other Family history of Alayna thyroiditis Family history of lupus erythematosus Family history of vasculitis Family history of problems with anesthesia: No Surgical History Surgical History Hx of colonoscopy H/O breast biopsy History of Problems with Anesthesia: No Social History Social History Household Members: Spouse and Children Housing: House Alcohol intake: current Alcohol intake frequency: holidays/special occasions only Alcohol type: wine Patient Tobacco Use Status: Never used Tobacco Second Hand Smoke Exposure: No service: No Current occupational status: employed Cognitive needs: No Hearing needs: No Vision needs: Yes Meds Allergies Allergy/AdvReac Type Severity Reaction Status Date / Time No Known Allergies Allergy Verified 12/14/22 16:01 [No Known Allergies*] Home Medications Medication Instructions Recorded Confirmed Last Taken Type multivitamin 1 tab PO DAILY 08/08/22 03/05/23 Unknown History Exam Airway Mallampati Class: I TM Dist: >3cm Neck ROM: Full Loose/Missing/Broken Teeth: No Heart: ok Lungs: ok Assessment and Plan Assessment Anesthesia Assessment: Anesthesia Plan Discussed Final Anesthetic Review Family History of Problems with Anesthesia: No History of Problems with Anesthesia: No NPO: Yes ASA Class: II Final Preanesthetic Review: No Changes in Pt Med Stat, Meds/Allgs Chart Reviewed, Consent Obtained/Reviewed and Anes Risks/Benef Reviewed Patient Risk: Low Procedure Risk: Low Anesthetic Plan Anesthetic Plan: MAC: and Agree w/ Assess. and Plan Disposition: Standard PACU
[2023-03-07 11:43] VITALS: BMI 20.4
[2023-03-07 11:49] LABS: UPreg QC Valid YES; Urine Pregnancy NEGATIVE (NEGATIVE)
[2023-03-07 12:18] VITALS: BP 103/55; PULSE 56; RESP 16; TEMP 37.1; O2SAT 100
[2023-03-07] MEDS: Lactated Ringers 1,000 ML 100 ML IVCONT (12:22)
--- NOTE | 2023-03-07 13:01 | MHC.SHP ---
Pre-Procedural Eval Section A Date of Service: 03/07/23 The patient is an INPATIENT: No Changes since office visit: No Cold of Flu in the past 2 weeks, No New Medical Problems, No Changes in Medication and No Patient answered all questions The History & Physical has been completed within 30 days and I have reviewed it.: Yes Section B Chief Complaint: screening Allergies: Allergies Allergy/AdvReac Type Severity Reaction Status Date / Time No Known Allergies Allergy Verified 12/14/22 16:01 [No Known Allergies*] Plan I have reviewed the history and physical and performed a pertinent physical examination on my patient. No changes have occurred unless specified. Time Spent With Patient Time: Total time managing care of this patient today ____ minutes.
[2023-03-07 13:34] VITALS: BP 100/51; PULSE 75; RESP 18; TEMP 36.8; O2SAT 100
[2023-03-07 13:55] VITALS: BP 115/64; PULSE 55; RESP 18; O2SAT 100
[2023-03-07 14:05] VITALS: TEMP 36.7
--- NOTE | 2023-03-07 18:38 | OP_ITS ---
DATE OF SERVICE: 03/07/2023 SURGEON: Norman Banks MD INDICATIONS: Colon cancer screening. PREOPERATIVE DIAGNOSIS: POSTOPERATIVE DIAGNOSIS: PROCEDURE PERFORMED: Colonoscopy to the terminal ileum with biopsy. ESTIMATED BLOOD LOSS: COMPLICATIONS: ANESTHESIA: Monitored anesthesia care. ASSISTANTS: SPECIMENS: DESCRIPTION OF PROCEDURE: A history and physical were performed. The risks and benefits of the procedure were explained to the patient. Informed consent was obtained. The patient was placed in a left lateral decubitus position. A digital rectal exam was performed and was found to be normal. The Olympus pediatric video colonoscope was introduced into the rectum and advanced to the cecum. The cecum was identified by transillumination, palpation, and identification of ileocecal valve. Examination was performed and the scope was removed. She tolerated the procedure well and was taken to recovery in stable condition. FINDINGS: The terminal ileum was examined and appeared normal. The visualized colonic mucosa was normal. The quality of the prep was good. In the cecum was a less than 5 mm sessile polyp, which was removed with biopsy forceps. No other polyps were identified. Retroflexed examination showed small internal hemorrhoids. IMPRESSION: Colon polyp. RECOMMENDATION: Follow up the biopsy results. MD WANDA Dodd/JOHNNY / [id number]
== END 2023-03-07 14:35 | disposition home or self-care (01) ==
PROVIDERS: Nurse Practitioner; PCP Internal Medicine; Visit Provider Internal Medicine Gastroenterology
PROC: 0DJD8ZZ Inspection of Lower Intestinal Tract, Via Natural or Artificial Opening Endoscopic (ICD-10-PCS; CPT 45378; principal; 2023-03-07 13:00)
DX: Z12.11 Encounter for screening for malignant neoplasm of colon (principal); K63.5 Polyp of colon; K64.8 Other hemorrhoids; K59.00 Constipation, unspecified; D64.9 Anemia, unspecified; Z79.899 Other long term (current) drug therapy
CPT/HCPCS: 45380; 81025; 88305; J2704

== ENCOUNTER 2023-03-28 12:49 | Outpatient (REF) | payer OTHER, SELFPAY ==
--- NOTE | ~2023-03-28 | XR_ITS ---
EXAMINATION: XR ANKLE, LEFT CLINICAL INFORMATION: Pain and unspecified ankle and joints of unspecified. COMPARISON: None available. TECHNIQUE: AP, lateral, and mortise views of the left ankle. FINDINGS: There is a mildly displaced oblique fracture of the distal fibula. Soft tissue swelling at the ankle with joint effusion. Evaluation limited due to overlying cast. XR/XR ankle LT min 3V IMPRESSION: Mildly displaced oblique fracture of the distal fibula. This study was presented today 04/03/2023 at 9:15 AM for interpretation. PSA staff will provide results to referring provider at this time.
== END 2023-03-28 12:50 | disposition home or self-care (01) ==
LOC: HO.HOSX 12:49
PROVIDERS: PCP Internal Medicine; Visit Provider Orthopaedic Surgery
DX: S82.402A Unspecified fracture of shaft of left fibula, initial encounter for closed fracture (principal)
CPT/HCPCS: 73610

== ENCOUNTER 2023-03-28 12:49 | Outpatient (AMB) | payer OTHER, SELFPAY ==
--- NOTE | 2023-03-28 13:08 | MHC.OFFVIS ---
Intake Vital Signs 03/28/23 13:16 Height 5 ft 6 in Weight 125 lb BMI 20.2 Intake Visit Reasons: FC-Left Tibia DOI 03/23/23 Intake Note: Steven is a 47 year old female who presents today for a evaluation of her left tibia fx, DOI 03/23/23. Patient reports she was skiing down a hill where her leg twisted. She states that her pain is improving every day. Allergies No Known Allergies [No Known Allergies*] Allergy (Verified 03/28/23 13:16) HPI FC-Left Tibia DOI 03/23/23 HPI Details Skiing accident in [facility] 5 days ago. She is in a boot and minimal pain PFSH Medical History (Updated 03/28/23 @ 14:10 by Rasta Law MD) Raynauds phenomenon Vitamin D deficiency Postprandial abdominal bloating Chronic anemia H/O sigmoidoscopy Mood disorder Fibroadenoma Surgical History Hx of colonoscopy H/O breast biopsy Family History Sister Breast cancer, Onset Age: 38 Maternal Grandmother Endometrial cancer Colon cancer Paternal Uncle Lung cancer Maternal Uncle Multiple myeloma Maternal Uncle Bladder cancer Maternal Aunt Cancer of kidney Mother IBS (irritable bowel syndrome) FH: HTN (hypertension) Father FH: HTN (hypertension) Other Family history of Alayna thyroiditis Family history of lupus erythematosus Family history of vasculitis Social History Household Members: Spouse and Children Housing: House Alcohol intake: current Alcohol intake frequency: holidays/special occasions only Alcohol type: wine Patient Tobacco Use Status: Never used Tobacco Second Hand Smoke Exposure: No service: No Current occupational status: employed Cognitive needs: No Hearing needs: No Vision needs: Yes Physical Exam Vital Signs: BMI result Body Mass Index 20.2 Extrem Other: Skin c/d/i eccymosis laterally min STS No medial ttp Results Reviewed Results Reviewed: I personally reviewed relevant radiographs. Minimal to non displaced Waldron B lateral malleolus fracture Assessment & Plan Assessment & Plan (1) Left fibular fracture: Code(s): S82.402A - Unspecified fracture of shaft of left fibula, initial encounter for closed fracture Plan: Boot and crutches for 3 weeks f/u with xrays in 3 weeks Orders: Orders XR ankle LT min 3V Today M25.579 - Pain in unspecified ankle and joints of unspecified foot Medications: New [Wheelchair] As directed 1 ea 0RF S82.402A - Unspecified fracture of shaft of left fibula, initial encounter for closed fracture Coding Level of Care Code Est Pt Level 3 (31521) Diagnoses Left fibular fracture S82.402A
[2023-03-28 13:16] VITALS: BMI 20.2
== END 2023-03-28 14:26 | disposition home or self-care (01) ==
PROVIDERS: PCP Internal Medicine; Visit Provider Orthopaedic Surgery
DX: S82.62XA Displaced fracture of lateral malleolus of left fibula, initial encounter for closed fracture (principal)
CPT/HCPCS: 99213

== ENCOUNTER 2023-04-19 12:28 | Outpatient (REF) | payer OTHER, SELFPAY ==
--- NOTE | ~2023-04-19 | XR_ITS ---
EXAMINATION: XR ANKLE, LEFT CLINICAL INFORMATION: Pain. COMPARISON: Radiographs dated 03/28/2023. TECHNIQUE: AP, lateral, and mortise views of the left ankle. FINDINGS: There is stable mild displacement of an oblique fracture of the distal left fibula. No significant new callus formation is seen. The ankle mortise remains intact. There is mild adjacent soft tissue swelling. No foreign body is seen. Boehler's angle is normal. There is no calcaneal spur. No left ankle joint effusion is seen. XR/XR ankle LT min 3V IMPRESSION: There is stable alignment of a mildly displaced oblique fracture of the distal left fibula. No significant new callus formation is noted.
== END 2023-04-19 12:29 | disposition home or self-care (01) ==
LOC: HO.HOSX 12:28
PROVIDERS: Visit Provider Orthopaedic Surgery
DX: S82.402D Unspecified fracture of shaft of left fibula, subsequent encounter for closed fracture with routine healing (principal); M25.572 Pain in left ankle and joints of left foot; X58.XXXD Exposure to other specified factors, subsequent encounter
CPT/HCPCS: 73610

== ENCOUNTER 2023-04-19 14:59 | Outpatient (AMB) | payer OTHER, SELFPAY ==
--- NOTE | 2023-04-19 15:10 | MHC.OFFVIS ---
Intake Intake Visit Reasons: OV-Left Tibia DOI 03/23/23-w/xray Intake Note: Steven is a 47 year old female who presents today for a follow up of her of her left tibia fx, DOI 03/23/23 due to skiing injury. At the last visit she was placed in a tall walking boot and advised to remain NWB. Allergies No Known Allergies [No Known Allergies*] Allergy (Verified 04/19/23 15:11) HPI OV-Left Tibia DOI 03/23/23-w/xray HPI Details Steven is a 47 year old female who presents today for a evaluation of her left tibia fx, DOI 03/23/23 At her last appointment she was placed in a tall walking boot and given crutches to use, with instructions to remain NWB. [facility] Medical History (Updated 03/28/23 @ 14:10 by Rasta Law MD) Raynauds phenomenon Vitamin D deficiency Postprandial abdominal bloating Chronic anemia H/O sigmoidoscopy Mood disorder Fibroadenoma Surgical History Hx of colonoscopy H/O breast biopsy Family History Sister Breast cancer, Onset Age: 38 Maternal Grandmother Endometrial cancer Colon cancer Paternal Uncle Lung cancer Maternal Uncle Multiple myeloma Maternal Uncle Bladder cancer Maternal Aunt Cancer of kidney Mother IBS (irritable bowel syndrome) FH: HTN (hypertension) Father FH: HTN (hypertension) Other Family history of Alayna thyroiditis Family history of lupus erythematosus Family history of vasculitis Social History Household Members: Spouse and Children Housing: House Alcohol intake: current Alcohol intake frequency: holidays/special occasions only Alcohol type: wine Patient Tobacco Use Status: Never used Tobacco Second Hand Smoke Exposure: No service: No Current occupational status: employed Cognitive needs: No Hearing needs: No Vision needs: Yes Review of Systems Const All systems reviewed & are unremarkable except as noted in HPI and below Physical Exam Const General: no acute distress, alert and awake Orientation/consciousness: patient oriented x3 HEENT Head: Yes normocephalic and Yes atraumatic Eyes EOM: EOMs intact bilaterally Resp Effort & Inspection: normal respiratory effort and able to speak in complete sentences Cardio Jugular venous distension: no JVD Skin General skin exam: turgor normal Rashes: no rashes Neuro General: patient oriented x3 Extrem Other: nmilkd ttp over lateral malleolus Psych Appearance: grossly normal Affect: normal affect Attitude: cooperative Results Reviewed Results Reviewed: I personally reviewed relevant radiographs. lateral malleolus fracture with alignment unchanged from prior Assessment & Plan Assessment & Plan (1) Left fibular fracture: Code(s): S82.402A - Unspecified fracture of shaft of left fibula, initial encounter for closed fracture Plan: may weight bear in boot f/u 2 weeks Plan Prepared for Rasta Law MD by Blanco Sanchez, medical laboratory technologist, on 04/19/23 at 3:17 PM, EST. Orders: Orders XR ankle LT min 3V 04/19/23 M25.579 - Pain in unspecified ankle and joints of unspecified foot Coding Level of Care Code Est Pt Level 3 (25286) Diagnoses Left fibular fracture S82.402A
== END 2023-04-19 15:35 | disposition home or self-care (01) ==
PROVIDERS: PCP Internal Medicine; Visit Provider Orthopaedic Surgery
DX: S82.402A Unspecified fracture of shaft of left fibula, initial encounter for closed fracture (principal)
CPT/HCPCS: 99213

== ENCOUNTER 2023-05-03 07:28 | Outpatient (REF) | payer OTHER, SELFPAY ==
--- NOTE | ~2023-05-03 | XR_ITS ---
EXAMINATION: XR ANKLE, LEFT CLINICAL INFORMATION: Pain. COMPARISON: Radiographs dated 04/19/2023. TECHNIQUE: AP, lateral, and mortise views of the left ankle. FINDINGS: An oblique, comminuted fracture is seen of the distal left fibula, in stable alignment. There is mild associated periosteal callus formation. Fracture lines remain visible. The ankle mortise is intact. There is no left ankle joint effusion. Boehler's angle is normal. There is no calcaneal spur. No focal soft tissue swelling, gas or foreign body seen. XR/XR ankle LT min 3V IMPRESSION: An oblique, comminuted distal left fibular fracture is seen, in stable alignment. There is mild adjacent periosteal callus formation.
== END 2023-05-03 07:29 | disposition home or self-care (01) ==
LOC: HO.HOSX 07:28
PROVIDERS: Visit Provider Orthopaedic Surgery
DX: S82.402A Unspecified fracture of shaft of left fibula, initial encounter for closed fracture (principal)
CPT/HCPCS: 73610

== ENCOUNTER 2023-05-03 13:21 | Outpatient (AMB) | payer OTHER, SELFPAY ==
--- NOTE | 2023-05-03 13:31 | A.OFFVIS_ITS ---
Intake Intake Visit Reasons: OV-Left Tibia DOI 03/23/23-w/xray Intake Note: Steven is a 47 year old female who presents today for a follow up of her of her left tibia fx, DOI 03/23/23 due to skiing injury. At her last visit she was fit in a walking boot and allowed to begin WBAT. Patient reports that she is doing well sheo has been wbat and this has become much easier. She has had some mild tingling in the great tow as well as on the heel Allergies No Known Allergies [No Known Allergies*] Allergy (Verified 04/19/23 15:11) HPI OV-Left Tibia DOI 03/23/23-w/xray HPI Details Steven is a 47 year old female who presents today for a evaluation of her left tibia fx, DOI 03/23/23 She has been WBAT in her tall walking boot, she says this has been going well. She says she has some new numbness developing in her large toe. [facility] Medical History (Updated 03/28/23 @ 14:10 by Rasta Law MD) Raynauds phenomenon Vitamin D deficiency Postprandial abdominal bloating Chronic anemia H/O sigmoidoscopy Mood disorder Fibroadenoma Surgical History Hx of colonoscopy H/O breast biopsy Family History Sister Breast cancer, Onset Age: 38 Maternal Grandmother Endometrial cancer Colon cancer Paternal Uncle Lung cancer Maternal Uncle Multiple myeloma Maternal Uncle Bladder cancer Maternal Aunt Cancer of kidney Mother IBS (irritable bowel syndrome) FH: HTN (hypertension) Father FH: HTN (hypertension) Other Family history of Alayna thyroiditis Family history of lupus erythematosus Family history of vasculitis Social History Household Members: Spouse and Children Housing: House Alcohol intake: current Alcohol intake frequency: holidays/special occasions only Alcohol type: wine Patient Tobacco Use Status: Never used Tobacco Second Hand Smoke Exposure: No service: No Current occupational status: employed Cognitive needs: No Hearing needs: No Vision needs: Yes Review of Systems Const All systems reviewed & are unremarkable except as noted in HPI and below Physical Exam Const General: no acute distress, alert and awake Orientation/consciousness: patient oriented x3 HEENT Head: Yes normocephalic and Yes atraumatic Eyes EOM: EOMs intact bilaterally Resp Effort & Inspection: normal respiratory effort and able to speak in complete sentences Cardio Jugular venous distension: no JVD Skin General skin exam: turgor normal Rashes: no rashes Neuro General: patient oriented x3 Extrem Other: No STS Mild TTP over distal fibula, improved from prior Psych Appearance: grossly normal Affect: normal affect Attitude: cooperative Results Reviewed Results Reviewed: I personally reviewed relevant radiographs. Healing left distal fibular fracture Assessment & Plan Assessment & Plan (1) Left fibular fracture: Code(s): S82.402A - Unspecified fracture of shaft of left fibula, initial encounter for closed fracture Plan: Left fibula fracture healing with decreased pain and no change in radiographic alignement. May WBAT in the boot and f/u in 4 weeks Plan Prepared for Rasta Law MD by Blanco Sanchez, chief medical director, on 05/03/23 at 1:40 PM, EST. Orders: Orders XR ankle LT min 3V 05/03/23 M25.579 - Pain in unspecified ankle and joints of unspecified foot Coding Level of Care Code Est Pt Level 3 (61494) Diagnoses Left fibular fracture S82.402A
== END 2023-05-03 14:08 | disposition home or self-care (01) ==
PROVIDERS: PCP Internal Medicine; Visit Provider Orthopaedic Surgery
DX: S82.402A Unspecified fracture of shaft of left fibula, initial encounter for closed fracture (principal)
CPT/HCPCS: 99213

== ENCOUNTER 2023-05-22 13:06 | Outpatient (AMB) | payer OTHER, SELFPAY ==
[2023-05-22 13:10] VITALS: BP 92/60; PULSE 70; O2SAT 99
--- NOTE | 2023-05-22 13:10 | A.OFFPC_ITS ---
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 Required per policy Accompanied by: Self / Same As Patient Allergies No Known Allergies [No Known Allergies*] Allergy (Verified 05/22/23 13:40) Medication List - Last Reconciled 05/22/23 by Jerry Guerra MD multivitamin 1 tab PO DAILY tamoxifen 20 mg PO DAILY [Wheelchair As directed] Tobacco use date assessed: 05/22/23 Dental Screening Dental Screen Date: 05/22/23 Did you have a dental visit in the last 12 months?: Yes Did you have a dental problem in the last 6 months where you did not have access to dental care?: No Was dental information given to patient?: Patient has dentist HPI Annual Exam HPI Details Patient comes in today for her annual physical examination DOI 03/23- left fibular Fx PFSH Medical History (Updated 05/22/23 @ 13:48 by Jerry Guerra MD) Raynauds phenomenon Vitamin D deficiency Chronic anemia H/O sigmoidoscopy Fibroadenoma Surgical History (Updated 05/22/23 @ 13:54 by Jerry Guerra MD) Hx of oral surgery (~05/11/23) Hx of colonoscopy H/O breast biopsy Family History Sister Breast cancer, Onset Age: 38 Maternal Grandmother Endometrial cancer Colon cancer Paternal Uncle Lung cancer Maternal Uncle Multiple myeloma Maternal Uncle Bladder cancer Maternal Aunt Cancer of kidney Mother IBS (irritable bowel syndrome) FH: HTN (hypertension) Father FH: HTN (hypertension) Other Family history of Alayna thyroiditis Family history of lupus erythematosus Family history of vasculitis Social History Household Members: Spouse and Children Housing: House Alcohol intake: current Alcohol intake frequency: holidays/special occasions only Alcohol type: wine Patient Tobacco Use Status: Never used Tobacco Second Hand Smoke Exposure: No service: No Current occupational status: employed Cognitive needs: No Hearing needs: No Vision needs: Yes Questionnaire PHQ-9 Over the last 2 weeks, how often have you been bothered by any of the following problems? 1. Little interest or pleasure in doing things: not at all 2. Feeling down, depressed, or hopeless: not at all 3. Trouble falling or staying asleep, or sleeping too much: not at all 4. Feeling tired or having little energy: not at all 5. Poor appetite or overeating: not at all 6. Feeling bad about yourself - or that you are a failure or have let yourself or your family down: not at all 7. Trouble concentrating on things, such as reading the newspaper or watching television: not at all 8. Moving or speaking so slowly that other people could have noticed. Or the opposite - being so fidgety or restless that you have been moving around a lot more than usual: not at all 9. Thoughts that you would be better off or of hurting yourself in some way: not at all Total score: 0 Depression Screening Interpretation: Negative (on Rx) Depression Screening Done: Yes 81835 - PHQ-9 Billing: Yes Source: Developed by Drs. Mj Drake, Lori Fagan, Mike Hinojosa and colleagues, with an educational fani from [employer]. Thrive Questionnaire Date Thrive assessed: 05/22/23 I am a: Patient What is your living situation today?: I have a steady place to live Within the past 12 months, did the food you bought not last and you didn't have the money to get more?: Never true Within the past 12 months, did you worry whether your food would run out before you got money to buy more?: Never true Do you have trouble paying for medicines?: No Do you have trouble getting transportation to medical appointments?: No Do you have trouble paying your heating and electricity bill?: No Do you have trouble taking care of your child, family member or friend?: No Do you have trouble with day-to-day activities such as bathing, preparing meals, shopping, managing finances, etc.?: No Are you currently unemployed and looking for a job?: No Are you interested in more education?: No Please select the resources that you would like help with: None THRIVE Score: 0 AUDIT C Alcohol Use Questionnaire (AUDIT-C) 1. How often do you have a drink containing alcohol?: 2-4 times a month 2. How many drinks containing alcohol do you have on a typical day when you are drinking?: 1 or 2 3. How often do you have six or more drinks on one occasion?: Never Total Score: 2 Score Reviewed/Action Taken: Yes BERTO-7 AMB Questionnaire BERTO-7 Date BERTO - 7 assessed: 05/22/23 Feeling nervous, anxious, or on edge: 0 = Not at all Not being able to stop or control worryin = Not at all Worrying too much about different things: 0 = Not at all Trouble relaxin = Not at all Being so restless that it is hard to sit still: 0 = Not at all Becoming easily annoyed or irritable: 0 = Not at all Feeling afraid as if something awful might happen: 0 = Not at all Total BERTO-7 score (0-4 normal; 5-9 mild; 10-14 moderate; 15-21 severe): 0 Source: Developed by Drs. Mj Drake, Lori Fagan, Mike Hinojosa and colleagues, with an educational fani from [employer]. Physical exam (Primary Care) Vital Signs: Last Vital Signs Pulse 70 05/22/23 13:10 BP 92/60 05/22/23 13:10 Pulse Ox 99 05/22/23 13:10 Oxygen Delivery Method Room Air 05/22/23 13:10 Tobacco/Smoking Status: Tobacco use Status Tobacco use date assessed 05/22/23 05/22/23 13:12 Patient Tobacco Use Status Never used Tobacco 05/22/23 13:12 PHQ-9: PHQ-9 Score PHQ-9: Total score 0 05/22/23 13:12 Depression Screening Interpretation: Negative (on Rx) Thrive Assessment: Date of Thrive Assessment Date Thrive assessed 05/22/23 05/22/23 13:12 Assessment and Plan Assessment & Plan (1) Annual physical exam: Code(s): Z00.00 - Encounter for general adult medical examination without abnormal findings Plan To return in 1 year for her next annual physical examination Orders: Orders Comprehensive [place]. Panel Fast Today E78.00 - Pure hypercholesterolemia, unspecified, Z00.00 - Encounter for general adult medical examination without abnormal findings TSH reflex Free T4 Today E78.00 - Pure hypercholesterolemia, unspecified, Z00.00 - Encounter for general adult medical examination without abnormal findings Vitamin D 25-OH Total Today E55.9 - Vitamin D deficiency, unspecified, Z00.00 - Encounter for general adult medical examination without abnormal findings Vitamin B12 and Folate Today E53.8 - Deficiency of other specified B group vitamins, Z00.00 - Encounter for general adult medical examination without abnormal findings Hemoglobin Electrophoresis Today D64.9 - Anemia, unspecified, Z00.00 - Encounter for general adult medical examination without abnormal findings Complete Blood Count Auto Diff Today D64.9 - Anemia, unspecified, Z00.00 - Encounter for general adult medical examination without abnormal findings Lipid Panel Today E78.00 - Pure hypercholesterolemia, unspecified, Z00.00 - Encounter for general adult medical examination without abnormal findings UA CC w/rflx Micro + Cult Today R30.0 - Dysuria, Z00.00 - Encounter for general adult medical examination without abnormal findings IRON PROFILE Today D50.9 - Iron deficiency anemia, unspecified, Z00.00 - Encounter for general adult medical examination without abnormal findings Coding Level of Care Code Est Pt Prev Care 40-64y(71985) Diagnoses Annual physical exam Z00.00
--- NOTE | 2023-05-22 13:10 | MHC.PC.OV ---
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: Annual Exam Portable [employer] Chief: Not Required per policy Accompanied by: Self / Same As Patient Allergies No Known Allergies [No Known Allergies*] Allergy (Verified 04/03/24 09:24) Medication List - Last Reconciled 05/22/23 by Jerry Guerra MD multivitamin 1 tab PO DAILY tamoxifen 20 mg PO DAILY [Wheelchair As directed] Tobacco use date assessed: 05/22/23 Dental Screening Dental Screen Date: 05/22/23 Did you have a dental visit in the last 12 months?: Yes Did you have a dental problem in the last 6 months where you did not have access to dental care?: No Was dental information given to patient?: Patient has dentist HPI Annual Exam HPI Details Patient comes in today for her annual physical examination Relates that she suffered a left fibular fracture a couple of months ago on 03/23/2023 during a skiing accident in [facility] Her left leg is currently still in a walking boot but patient states that her injury has been healing well and she currently has no problems with her leg other than some mild pain and discomfort States that she feels okay otherwise She denies any headaches or dizziness Denies any chest pains, no shortness of breath No nausea/vomiting, no abdominal pain No change in bowel habits noted She denies any acute urinary symptoms PFSH Medical History Irregular bleeding Raynauds phenomenon Vitamin D deficiency Chronic anemia H/O sigmoidoscopy Fibroadenoma Surgical History Hx of oral surgery (~05/11/23) Hx of colonoscopy H/O breast biopsy Family History Sister Breast cancer, Onset Age: 38 Maternal Grandmother Endometrial cancer Colon cancer Paternal Uncle Lung cancer Maternal Uncle Multiple myeloma Maternal Uncle Bladder cancer Maternal Aunt Cancer of kidney Mother IBS (irritable bowel syndrome) FH: HTN (hypertension) Father FH: HTN (hypertension) Other Family history of Alayna thyroiditis Family history of lupus erythematosus Family history of vasculitis Social History Household Members: Spouse and Children Housing: House Alcohol intake: current Alcohol intake frequency: holidays/special occasions only Alcohol type: wine Patient Tobacco Use Status: Never used Tobacco Second Hand Smoke Exposure: No service: No Current occupational status: employed Cognitive needs: No Hearing needs: No Vision needs: Yes Questionnaire PHQ-9 Over the last 2 weeks, how often have you been bothered by any of the following problems? 1. Little interest or pleasure in doing things: not at all 2. Feeling down, depressed, or hopeless: not at all 3. Trouble falling or staying asleep, or sleeping too much: not at all 4. Feeling tired or having little energy: not at all 5. Poor appetite or overeating: not at all 6. Feeling bad about yourself - or that you are a failure or have let yourself or your family down: not at all 7. Trouble concentrating on things, such as reading the newspaper or watching television: not at all 8. Moving or speaking so slowly that other people could have noticed. Or the opposite - being so fidgety or restless that you have been moving around a lot more than usual: not at all 9. Thoughts that you would be better off or of hurting yourself in some way: not at all Total score: 0 Depression Screening Interpretation: Negative (on Rx) Depression Screening Done: Yes 08307 - PHQ-9 Billing: Yes Source: Developed by Drs. Mj Drake, Lori Fagan, Mike Hinojosa and colleagues, with an educational fani from [employer]. Thrive Questionnaire Date Thrive assessed: 05/22/23 I am a: Patient What is your living situation today?: I have a steady place to live Within the past 12 months, did the food you bought not last and you didn't have the money to get more?: Never true Within the past 12 months, did you worry whether your food would run out before you got money to buy more?: Never true Do you have trouble paying for medicines?: No Do you have trouble getting transportation to medical appointments?: No Do you have trouble paying your heating and electricity bill?: No Do you have trouble taking care of your child, family member or friend?: No Do you have trouble with day-to-day activities such as bathing, preparing meals, shopping, managing finances, etc.?: No Are you currently unemployed and looking for a job?: No Are you interested in more education?: No Please select the resources that you would like help with: None Currently or been in a relationship where the following occur: no concerns reported THRIVE Score: 0 AUDIT C Alcohol Use Questionnaire (AUDIT-C) 1. How often do you have a drink containing alcohol?: 2-4 times a month 2. How many drinks containing alcohol do you have on a typical day when you are drinking?: 1 or 2 3. How often do you have six or more drinks on one occasion?: Never Total Score: 2 Score Reviewed/Action Taken: Yes BERTO-7 AMB Questionnaire BERTO-7 Date BERTO - 7 assessed: 05/22/23 Feeling nervous, anxious, or on edge: 0 = Not at all Not being able to stop or control worryin = Not at all Worrying too much about different things: 0 = Not at all Trouble relaxin = Not at all Being so restless that it is hard to sit still: 0 = Not at all Becoming easily annoyed or irritable: 0 = Not at all Feeling afraid as if something awful might happen: 0 = Not at all Total BERTO-7 score (0-4 normal; 5-9 mild; 10-14 moderate; 15-21 severe): 0 Source: Developed by Drs. Mj Drake, Lori Fagan, Mike Hinojosa and colleagues, with an educational fani from [employer]. Review of Systems Const Denies chills, Denies fatigue, Denies fever(s), Denies headache(s) and Denies malaise Eyes Denies blurry vision, Denies change in vision, Denies irritation and Denies itchy eyes ENT Denies dysphagia, Denies dizziness, Denies otalgia, Denies headache(s), Denies nasal congestion, Denies neck pain, Denies odynophagia, Denies sinus pain and Denies sore throat Card Denies chest pain, Denies rapid heart rate, Denies irregular heart rhythm, Denies palpitations and Denies dyspnea Resp Denies chest congestion, Denies cough, Denies dyspnea and Denies wheezing GI Denies abdominal pain, Denies bloating, Denies constipation, Denies dysphagia, Denies heartburn, Denies diarrhea, Denies nausea, Denies odynophagia and Denies vomiting Denies hematuria, Denies urinary frequency, Denies dysuria, Denies urinary incontinence and Denies urinary urgency Musc Details: Her left lower leg/foot is currently still in a walking boot, with (+) mild pain/discomfort in her left lower extremity Denies back pain, Denies arthralgias, Denies joint swelling, Denies muscle weakness and Denies neck pain Skin/Breast Denies breast pain, Denies breast mass, Denies change in pigmentation, Denies lesions, Denies rash and Denies unusual bruising Neuro Denies dizziness, Denies headache(s) and Denies paresthesias Psych Denies anxiety and Denies depression Endo Denies fatigue and Denies palpitations Royal/Lymph Denies easy bruising Aller/Immun Denies itchy eyes and Denies wheezing Physical exam (Primary Care) Vital Signs: Last Vital Signs Pulse 70 05/22/23 13:10 BP 92/60 05/22/23 13:10 Pulse Ox 99 05/22/23 13:10 Oxygen Delivery Method Room Air 05/22/23 13:10 Tobacco/Smoking Status: Tobacco use Status Tobacco use date assessed 05/22/23 05/22/23 13:12 Patient Tobacco Use Status Never used Tobacco 05/22/23 13:12 PHQ-9: PHQ-9 Score PHQ-9: Total score 0 05/22/23 13:41 Depression Screening Interpretation: Negative (on Rx) Thrive Assessment: Date of Thrive Assessment Date Thrive assessed 05/22/23 05/22/23 13:12 Currently or been in a relationship where the following occur: no concerns reported Const General: no acute distress, alert and awake Orientation/consciousness: patient oriented x3 HENMT Head: Yes normocephalic and Yes atraumatic Ears: external ears normal, TM's normal bilaterally and EAC's normal General nose exam: No nasal discharge present Face and sinus: Yes normal facial exam and Yes sinuses nontender Teeth and gingiva: dentition normal Throat: Yes posterior oropharynx normal and Yes tonsils normal (no TP congestion) Eyes Eyelids: Yes eyelids normal Conjunctivae: conjunctivae normal Pupils: Equal, round and reactive pupils present EOM: EOMs intact bilaterally Neck Neck: Yes supple and No lymphadenopathy Thyroid: Thyroid normal Resp Auscultation: clear to auscultation bilaterally, no rales and no wheezes Cardio Rate: regular rate Rhythm: regular rhythm Heart sounds: no murmurs GI Palpation (GI): Soft to palpation, nontender and No hepatosplenomegaly present Auscultation: normal bowel sounds General: Yes no CVA tenderness Back/Spine/Pelvis Back: no CVA tenderness Thoracic/Lumbar Spine: thoracic and lumbar spine normal to inspection Skin Lesions: no lesions Rashes: no rashes Neuro General: patient oriented x3, moves all extremities, no focal motor deficits and CN's II-XI intact bilaterally Cranial nerves: Yes Equal, round and reactive pupils present Cognition (Neuro): normal cognition Gait exam (Neuro): Normal gait present Extrem Other: Left leg and foot are currently still in a walking boot so unable to examine her left lower extremity today General: Yes no clubbing, cyanosis or edema (in the right lower extremity) Coding Level of Care Code Est Pt Prev Care 40-64y(78581) Diagnoses Annual physical exam Z00.00 Closed fracture of shaft of left fibula, unspecified fracture morphology, sequela S82.402S Encounter type: sequela Fibula location: shaft Fracture type: closed Fracture morphology: unspecified fracture morphology Vitamin D deficiency E55.9 Alopecia L65.9 Osteochondral defect of femoral condyle 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
== END 2023-05-22 14:08 | disposition home or self-care (01) ==
PROVIDERS: PCP Internal Medicine; Visit Provider Internal Medicine
DX: Z00.00 Encounter for general adult medical examination without abnormal findings (principal); S82.402S Unspecified fracture of shaft of left fibula, sequela; E55.9 Vitamin D deficiency, unspecified; L65.9 Nonscarring hair loss, unspecified; M95.8 Other specified acquired deformities of musculoskeletal system; Z86.2 Personal history of diseases of the blood and blood-forming organs and certain disorders involving the immune mechanism; K59.00 Constipation, unspecified; F39 Unspecified mood [affective] disorder
CPT/HCPCS: 99499

== ENCOUNTER 2023-05-29 09:45 | Outpatient (REF) | payer OTHER, SELFPAY ==
[2023-05-29 10:01] LABS: MANUAL DIFF FLAG NO
[2023-05-29 11:07] LABS: Basophils Percent Auto 0.9 % (0-2); Eosinophils Absolute Auto 0.1 X10*3/uL (0.0-0.4); Eosinophils Percent Auto 1.8 % (0-4); Hematocrit 35.8 % (37.0-47.0); Hemoglobin 12.1 g/dl (12.0-16.0); Imm Gran Abs Auto 0.01 X10*3/uL (0.00-0.03); Imm Gran Pct Auto 0.2 % (0.0-0.4); Lymphocytes Absolute Auto 1.7 X10*3/uL (1.2-4.9); Lymphocytes Percent Auto 39.4 % (20-40); Mean Corpuscular HGB Conc 33.8 g/dl (31.0-35.0); Mean Corpuscular Hemoglobin 32.9 pg (27.0-33.0); Mean Corpuscular Volume 97.3 fL (80.0-98.0); Mean Platelet Volume 10.2 fL (9.4-12.3); Monocytes Absolute Auto 0.4 X10*3/uL (0.1-1.2); Monocytes Percent Auto 8.3 % (2-11); Neutrophils Absolute Auto 2.2 x10*3/uL (2.0-8.3); Neutrophils Percent Auto 49.4 % (45-73); Platelet Count 268 X10*3/uL (160-400); Red Blood Count 3.68 X10*6/uL (4.20-5.50); Red Cell Distribution Width 12.5 % (11.0-16.0); White Blood Count 4.4 X10*3/uL (4.8-10.8)
[2023-05-29 11:17] LABS: Appearance Urine Clear; Color Urine Yellow; Glucose Urine UA Negative (Negative); Leukocyte Esterase Urine Negative (Negative); Nitrite Urine Negative (Negative); PH 5.5 (5.0-9.0); Urine Blood Negative (Negative); Urine Ketones Negative (Negative); Urine Protein Negative (Neg-Trace)
[2023-05-29 11:43] LABS: Alanine Aminotransferase 34 U/L (0-31); Albumin Level 4.2 g/dL (3.5-5.0); Alkaline Phosphatase 54 U/L (39-117); Anion Gap 9 (12-20); Aspartate Amino Transferase 35 U/L (5-31); Bilirubin Total 0.3 mg/dL (0.0-1.0); Blood Urea Nitrogen 18 mg/dL (9-16); Calcium 9.4 mg/dL (8.4-10.2); Carbon Dioxide 29 mmol/L (22-29); Chloride 106 mmol/L (96-108); Cholesterol 187 mg/dL (<200); Estimated Glomerular Filt Rate > 60; Glucose Fasting 90 mg/dL (60-99); HDL Cholesterol 60 mg/dL (>40); Iron 97 mcg/dL (30-160); LDL Cholesterol Calculated 115 mg/dL (<100); Percent Iron Saturation 29 % (15-50); Potassium 3.8 mmol/L (3.3-5.1); Sodium 140 mmol/L (135-145); Total Iron Binding Capacity 334 mcg/dL (228-428); Triglycerides 62 mg/dL (<150); Unsaturated Iron Binding 237 ug/dL
[2023-05-29 12:00] LABS: TSH reflex Free T4 2.14 uIU/mL (0.32-4.0); Vitamin D 25-OH Total 27.6 ng/mL (>30)
[2023-05-29 12:12] LABS: Folate 17.5 ng/mL (> or = 4.0); Vitamin B12 966 pg/mL (200-900)
[2023-06-01 10:08] LABS: Hematocrit 35.5 % (35.0-45.0); MCH 32.5 pg (27.0-33.0); MCV 96.2 fL (80.0-100.0); RBC 3.69 Million/uL (3.80-5.10)
[2023-06-03 15:34] LABS: Vitamin B6 25.5 ng/mL (2.1-21.7)
[2023-06-07 18:33] LABS: Nicotinamide 52 ng/mL; Vit B3 - Nicotinic Acid <20 ng/mL
== END 2023-05-29 09:46 | disposition home or self-care (01) ==
LOC: HO.LAB 09:45
PROVIDERS: PCP Internal Medicine; Visit Provider Obstetrics & Gynecology
DX: Z00.00 Encounter for general adult medical examination without abnormal findings (principal); L65.9 Nonscarring hair loss, unspecified; E78.00 Pure hypercholesterolemia, unspecified; E53.8 Deficiency of other specified B group vitamins; D50.9 Iron deficiency anemia, unspecified; E55.9 Vitamin D deficiency, unspecified; D64.9 Anemia, unspecified; R30.0 Dysuria
CPT/HCPCS: 36415; 80053; 80061; 81003; 82306; 82607; 82746; 83020; 83540; 84207; 84443; 84591; 85014; 85018; 85025; 85041

== ENCOUNTER 2023-05-31 12:33 | Outpatient (REF) | payer OTHER, SELFPAY ==
--- NOTE | ~2023-05-31 | XR_ITS ---
EXAMINATION: XR ANKLE, LEFT CLINICAL INFORMATION: Pain and unspecified ankle and ankle joints of unspecified foot. COMPARISON: 05/03/2023 radiographs. TECHNIQUE: AP, lateral, and mortise views of the left ankle. FINDINGS: Redemonstration of an oblique comminuted fracture of the distal fibula in stable alignment. Fracture line is still visible, but less conspicuous suggesting some interval bony bridging. No significant joint effusion. XR/XR ankle LT min 3V IMPRESSION: Redemonstration of an oblique comminuted fracture of the distal fibula in stable alignment. Fracture line is still visible, but less conspicuous suggesting some interval bony bridging.
== END 2023-05-31 12:34 | disposition home or self-care (01) ==
LOC: HO.HOSX 12:33
PROVIDERS: Visit Provider Orthopaedic Surgery
DX: S82.402A Unspecified fracture of shaft of left fibula, initial encounter for closed fracture (principal)
CPT/HCPCS: 73610

== ENCOUNTER 2023-05-31 15:04 | Outpatient (AMB) | payer OTHER, SELFPAY ==
--- NOTE | 2023-05-31 15:15 | A.OFFVIS_ITS ---
Intake Intake Visit Reasons: OV-Left Tibia DOI 03/23/23-w/xray-follow up Intake Note: Steven is a 47 year old female who presents today for a follow up of her of her left tibia fx, DOI 03/23/23 due to skiing injury. At her last visit she was instructed to WBAT in boot Allergies No Known Allergies [No Known Allergies*] Allergy (Verified 05/22/23 13:40) HPI OV-Left Tibia DOI 03/23/23-w/xray-follow up HPI Details Soreness and discomfort but generally improving. Working with PT. [facility] Medical History (Updated 05/22/23 @ 13:48 by Jerry Guerra MD) Raynauds phenomenon Vitamin D deficiency Chronic anemia H/O sigmoidoscopy Fibroadenoma Surgical History (Updated 05/22/23 @ 13:54 by Jerry Guerra MD) Hx of oral surgery (~05/11/23) Hx of colonoscopy H/O breast biopsy Family History Sister Breast cancer, Onset Age: 38 Maternal Grandmother Endometrial cancer Colon cancer Paternal Uncle Lung cancer Maternal Uncle Multiple myeloma Maternal Uncle Bladder cancer Maternal Aunt Cancer of kidney Mother IBS (irritable bowel syndrome) FH: HTN (hypertension) Father FH: HTN (hypertension) Other Family history of Alayna thyroiditis Family history of lupus erythematosus Family history of vasculitis Social History Household Members: Spouse and Children Housing: House Alcohol intake: current Alcohol intake frequency: holidays/special occasions only Alcohol type: wine Patient Tobacco Use Status: Never used Tobacco Second Hand Smoke Exposure: No service: No Current occupational status: employed Cognitive needs: No Hearing needs: No Vision needs: Yes Review of Systems Const Reports no additional complaints Physical Exam Extrem Other: neutral dorsiflexion min sts SILT minimal ttp over lateral mal Results Reviewed Results Reviewed: I personally reviewed relevant radiographs. Healing left distal fibular fracture Assessment & Plan Assessment & Plan (1) Left fibular fracture: Code(s): S82.402A - Unspecified fracture of shaft of left fibula, initial encounter for closed fracture Plan: Left fibular fracture. May begin WBAT in street shoes with lace up ankle brace f/u 4 weeks Continue PT Orders: Orders XR ankle LT min 3V Today M25.579 - Pain in unspecified ankle and joints of unspecified foot Coding Level of Care Code Est Pt Level 3 (36591) Diagnoses Left fibular fracture S82.402A
== END 2023-05-31 16:05 | disposition home or self-care (01) ==
PROVIDERS: PCP Internal Medicine; Visit Provider Orthopaedic Surgery
DX: S82.402A Unspecified fracture of shaft of left fibula, initial encounter for closed fracture (principal)
CPT/HCPCS: 99213

== ENCOUNTER 2023-06-28 13:26 | Outpatient (REF) | payer OTHER, SELFPAY ==
--- NOTE | ~2023-06-28 | XR_ITS ---
EXAMINATION: XR ANKLE, LEFT CLINICAL INFORMATION: Pain. COMPARISON: Prior radiographs, most recently 06/05/2023. TECHNIQUE: AP, lateral, and mortise views of the left ankle. FINDINGS: Bony alignment and mineralization are normal. The ankle mortise is intact. A faint residual oblique fracture line is noted of the distal left fibula, in particular on the lateral view. There is adjacent good periosteal callus formation. No dislocation or left ankle joint effusion is seen. Boehler's angle is normal. There is no calcaneal spur. There is no focal soft tissue swelling, gas or foreign body. XR/XR ankle LT min 3V IMPRESSION: A faint residual oblique fracture line is noted of the distal left fibula. There is good periosteal callus formation.
== END 2023-06-28 13:27 | disposition home or self-care (01) ==
LOC: HO.HOSX 13:26
PROVIDERS: Visit Provider Orthopaedic Surgery
DX: S82.402A Unspecified fracture of shaft of left fibula, initial encounter for closed fracture (principal)
CPT/HCPCS: 73610

== ENCOUNTER 2023-06-28 13:53 | Outpatient (AMB) | payer OTHER, SELFPAY ==
--- NOTE | 2023-06-28 13:55 | A.OFFVIS_ITS ---
Intake Intake Visit Reasons: OV-Left Tibia DOI 03/23/23 Intake Note: Steven is a 47 year old female who presents today for a follow up of her of her left tibia fx, DOI 03/23/23 due to skiing injury. At her last visit she was given a lace up ankle brace and instructed to being WBAT in street shoes. Patient reports that she has been doing well will some tenderness and swelling of the ankle, she was wearing the brace when on uneven ground. Allergies No Known Allergies [No Known Allergies*] Allergy (Verified 05/22/23 13:40) HPI OV-Left Tibia DOI 03/23/23 HPI Details Steven is a 47 year old female who presents today for a follow up of her of her left tibia fx, DOI 03/23/23 due to skiing injury. At her last visit she was given a lace up ankle brace and instructed to being WBAT in street shoes. Patient reports that she has been doing well will some tenderness and swelling of the ankle, she was wearing the brace when on uneven ground. [facility] Medical History (Updated 05/22/23 @ 13:48 by Jerry Guerra MD) Raynauds phenomenon Vitamin D deficiency Chronic anemia H/O sigmoidoscopy Fibroadenoma Surgical History (Updated 05/22/23 @ 13:54 by Jerry Guerra MD) Hx of oral surgery (~05/11/23) Hx of colonoscopy H/O breast biopsy Family History Sister Breast cancer, Onset Age: 38 Maternal Grandmother Endometrial cancer Colon cancer Paternal Uncle Lung cancer Maternal Uncle Multiple myeloma Maternal Uncle Bladder cancer Maternal Aunt Cancer of kidney Mother IBS (irritable bowel syndrome) FH: HTN (hypertension) Father FH: HTN (hypertension) Other Family history of Alayna thyroiditis Family history of lupus erythematosus Family history of vasculitis Social History Household Members: Spouse and Children Housing: House Alcohol intake: current Alcohol intake frequency: holidays/special occasions only Alcohol type: wine Patient Tobacco Use Status: Never used Tobacco Second Hand Smoke Exposure: No service: No Current occupational status: employed Cognitive needs: No Hearing needs: No Vision needs: Yes Physical Exam Extrem Other: mild left ankle swelling no bony ttp Results Reviewed Results Reviewed: I personally reviewed relevant radiographs. Healed lateral malleolus fracture left ankle Assessment & Plan Assessment & Plan (1) Left fibular fracture: Code(s): S82.402A - Unspecified fracture of shaft of left fibula, initial encounter for closed fracture Plan: Left fibula fracture, healing. Continue activity as tolerated. No additional intervention warranted. Orders: Orders XR ankle LT min 3V 06/28/23 M25.579 - Pain in unspecified ankle and joints of unspecified foot Coding Level of Care Code Est Pt Level 3 (03665) Diagnoses Left fibular fracture S82.402A
== END 2023-06-28 15:01 | disposition home or self-care (01) ==
PROVIDERS: PCP Internal Medicine; Visit Provider Orthopaedic Surgery
DX: S82.402A Unspecified fracture of shaft of left fibula, initial encounter for closed fracture (principal)
CPT/HCPCS: 99213

== ENCOUNTER → 2023-07-26 12:15 | Outpatient (BNV) | payer OTHER, SELFPAY | PROVIDERS: PCP Internal Medicine; Visit Provider Radiology Diagnostic Radiology | DX: Z12.31 Encounter for screening mammogram for malignant neoplasm of breast (principal) | CPT/HCPCS: 77063; 77067 ==

== ENCOUNTER 2023-07-26 12:17 | Outpatient (REF) | payer OTHER, SELFPAY ==
--- NOTE | ~2023-07-26 | MM_ITS ---
EXAMINATION: MM SCREENING DIGITAL BREAST TOMOSYNTHESIS, BILATERAL CLINICAL INFORMATION: Screening. Asymptomatic. COMPARISON: Mammography: This study is compared with prior exams dating back to 2018. TECHNIQUE: Digital breast tomosynthesis is performed in both the craniocaudal and mediolateral oblique views along with computer-aided detection (CAD). Synthesized 2D images are generated from the tomosynthesis. FINDINGS: The breasts are heterogeneously dense, which may obscure small masses (ACR BI-RADS breast composition Category c). There are no significant masses, abnormal calcifications, or other abnormalities. There are 3 biopsy tissue markers in the superior aspect of the right breast and one biopsy tissue marker associated with a small oval benign mass in the superficial third of the lower inner quadrant of the left breast. MM/MM tomosynthesis screening BI IMPRESSION: No mammographic evidence of malignancy. ASSESSMENT: BI-RADS BI-RADS 2 - Benign Findings RECOMMENDATION: Routine annual mammography screening. 1 year F/U This examination should not preclude the clinical evaluation of a suspicious palpable abnormality. This patient's information was entered into a reminder system with a target due date for their next mammogram.
== END 2023-07-26 12:18 | disposition home or self-care (01) ==
LOC: HO.MAMMO 12:17
PROVIDERS: PCP Internal Medicine; Visit Provider Internal Medicine
DX: Z12.31 Encounter for screening mammogram for malignant neoplasm of breast (principal)
CPT/HCPCS: 77063; 77067

== ENCOUNTER 2023-08-01 14:00 | Outpatient (RCR) | payer OTHER, SELFPAY ==
--- NOTE | 2023-05-09 13:33 | MHC.PT.EP ---
[facility] [place] Office [place] Office [place] Office [address] Guerrero Young [address] [phone] F: [phone] F: [phone] F: [phone] F: [phone] Physical Therapy Plan of Care Date of Evaluation: 05/09/23 Date of Surgery: Diagnosis: unspecified fx of shaft of L fibula, initial encounter for closed fx WBAT in boot ROM and strengthening Assessment: 47 y/o female referred to PT s/p L lateral malleoli fx on 03/23/23. Injury sustained while skiing. She was NWB for the first 4-6 weeks and she is now WBAT in boot and ambulating with one crutch. Currently reports difficulty with walking, standing, sitting for prolonged periods, and stairs secondary to decreased ankle ROM, decreased LE strength, swelling, and impaired gait pattern. Recommend PT 2x/week for 8 weeks to address impairments, implement HEP, and optimize functional mobility. Frequency and Duration: The patient will be seen 2x/week for 6 weeks Short Term Goals: 3 weeks COmpliant with HEP Demonstrate L ankle dorsiflexion to 10* Pt will ambulate WBAT in boot without assitive device Data Engineer Goals: 8 weeks I with HEP and self management of sx Pt will be able to ascend/ descend stairs in step through pattern with pain < 3/10 Pt will be able to ambulate > 45 min with pain < 3/10 Treatment Plan: Modalities to reduce pain, spasms and effusion. Manual therapy to restore motion and function. Therapeutic exercise to improve strength and flexibility. Neuromuscular re-education for posture and balance. Therapeutic activities to return to functional activities of daily living. Electronically signed by: Xochilt Ellington PT Please sign and return to therapist. Thank you for your referral.
--- NOTE | 2023-08-02 09:55 | MHC.PT.DC ---
[facility] [place] Office [place] Office [place] Office [address] Guerrero Young [address] [phone] F: [phone] F: [phone] F: [phone] F: [phone] Physical Therapy Discharge Report Diagnosis: unspecified fx of shaft of L fibula, initial encounter for closed fx WBAT in boot ROM and strengthening Date of Surgery: Date of Evaluation: 05/09/23 Date of Discharge: 08/02/23 Treatments to Date: 15 Cancellations to Date: 0 No Shows to Date: 0 Discharge Status: Achieved Goals Improved Function Independent with HEP Discharge Summary: Pt appropriate for d/c secondary to meeting goals, I with HEP, ROM WFL, and pt feels ready to be d/c. Electronically signed by: Xochilt Ellington PT Please sign and return to therapist. Thank you for your referral.
== END 2023-08-02 09:56 | disposition home or self-care (01) ==
LOC: HO.PT 14:00
PROVIDERS: PCP Internal Medicine; Visit Provider Orthopaedic Surgery
DX: S82.402A Unspecified fracture of shaft of left fibula, initial encounter for closed fracture (principal)
CPT/HCPCS: 97110; 97112; 97140; 97161; 97530

== ENCOUNTER 2023-08-01 15:01 | Outpatient (REF) | payer OTHER, SELFPAY ==
--- NOTE | ~2023-08-01 | MR_ITS ---
EXAMINATION: MR BREAST WITHOUT AND WITH CONTRAST, BILATERAL CLINICAL INFORMATION: High risk screening. Family history of breast cancer including sister diagnosed at age 38. COMPARISON: MRI 08/16/2022, 07/27/2021 TECHNIQUE: Imaging was performed with a dedicated breast coil. Prior to the administration of contrast, bilateral axial T1 and bilateral axial T2 weighted sequences were obtained. After the uneventful administration of?6 mL of Gadavist, dynamic contrast-enhanced VIBRANT series through the breasts in the axial plane were performed. Subtracted images were performed and reviewed. A delayed sagittal sequence through both breasts was acquired. Additionally, CAD post-processing, including maximum intensity projections, 3-D reconstructions and kinetic analysis, were performed an independent workstation and reviewed by the interpreting radiologist is a portion of this exam. FINDINGS: The patient's fibroglandular tissue demonstrates moderate background enhancement. LEFT BREAST: No suspicious masslike or non-masslike enhancement. No abnormal skin thickening or nipple retraction. No abnormal architectural distortion. Review of the T2 weighted images demonstrates no fibrocystic changes or dilated ducts. Review of kinetic images reveals no additional findings. RIGHT BREAST: No suspicious masslike or non-masslike enhancement. No abnormal skin thickening or nipple retraction. No abnormal architectural distortion. Review of the T2 weighted images demonstrates no fibrocystic changes or dilated ducts. Review of kinetic images reveals no additional findings. There is no suspicious internal mammary chain or axillary adenopathy. Limited views of the chest and abdomen are unremarkable. MR/MR breast BI wo/w con IMPRESSION: No MR specific evidence of malignancy. ASSESSMENT: LEFT BREAST: BI-RADS 1-Negative RIGHT BREAST: BI-RADS 1-Negative RECOMMENDATIONS: Clinical follow-up. Continued annual mammographic surveillance. Further breast MRI as risk factors dictate.
[2023-08-01] MEDS: gadobutroL 7.5 ML VIAL IVPUSH (16:34)
== END 2023-08-01 15:02 | disposition home or self-care (01) ==
LOC: HO.MRI 15:01
PROVIDERS: PCP Internal Medicine; Visit Provider Obstetrics & Gynecology
DX: Z12.39 Encounter for other screening for malignant neoplasm of breast (principal); Z80.3 Family history of malignant neoplasm of breast
CPT/HCPCS: 77049; A9585

== ENCOUNTER 2023-10-04 08:36 | Outpatient (REF) | payer OTHER, SELFPAY ==
--- NOTE | ~2023-10-04 | XR_ITS ---
EXAMINATION: XR ANKLE, LEFT CLINICAL INFORMATION: Pain. COMPARISON: Radiograph left ankle 06/28/2023. TECHNIQUE: AP, lateral, and mortise views of the left ankle. FINDINGS: Stable appearance of a nondisplaced fracture of the distal fibula. No interval injuries. Ankle mortise is congruent. Normal soft tissues. XR/XR ankle LT min 3V IMPRESSION: Stable appearance of a nondisplaced fracture of the distal fibula.
== END 2023-10-04 08:37 | disposition home or self-care (01) ==
LOC: HO.HOSX 08:36
PROVIDERS: Visit Provider Orthopaedic Surgery
DX: S82.402A Unspecified fracture of shaft of left fibula, initial encounter for closed fracture (principal); Z71.3 Dietary counseling and surveillance
CPT/HCPCS: 73610

== ENCOUNTER 2023-10-04 11:04 | Outpatient (AMB) | payer OTHER, SELFPAY ==
--- NOTE | 2023-10-04 11:32 | A.OFFVIS_ITS ---
Intake Visit Reasons: EP, Left fibular fx Intake Note: Steven is a 47 year old female who presents today for a follow up of her of her left tibia fx, DOI 03/23/23 due to skiing injury. She is requesting a full body dexa scan Allergies No Known Allergies [No Known Allergies*] Allergy (Verified 09/21/23 09:18) HPI HPI EP, Left fibular fx: Details: There has been the development of a small firm nodule over dorsal midfoot. Her nakle has been improving with occasional mild swelling. COUNT INCLUDES THE [facility] Medical History (Updated 09/21/23 @ 09:24 by Sarah Philippe MD) Raynauds phenomenon Vitamin D deficiency Chronic anemia H/O sigmoidoscopy Fibroadenoma Surgical History (Updated 09/21/23 @ 09:24 by Sarah Philippe MD) Hx of oral surgery (~05/11/23) Hx of colonoscopy H/O breast biopsy Family History Sister Breast cancer, Onset Age: 38 Maternal Grandmother Endometrial cancer Colon cancer Paternal Uncle Lung cancer Maternal Uncle Multiple myeloma Maternal Uncle Bladder cancer Maternal Aunt Cancer of kidney Mother IBS (irritable bowel syndrome) FH: HTN (hypertension) Father FH: HTN (hypertension) Other Family history of Alayna thyroiditis Family history of lupus erythematosus Family history of vasculitis Social History Household Members: Spouse and Children Housing: House Alcohol intake: current Alcohol intake frequency: holidays/special occasions only Alcohol type: wine Patient Tobacco Use Status: Never used Tobacco Second Hand Smoke Exposure: No service: No Current occupational status: employed Cognitive needs: No Hearing needs: No Vision needs: Yes Physical Exam Extrem Other: Small ganglion-like nodule over dorsal midfoot and medial cuneiform. No tenderness Results Reviewed Results Reviewed: I personally reviewed relevant radiographs. Healed small fibular fracture No remarkable findings Assessment & Plan Assessment & Plan (1) Left fibular fracture: Code(s): S82.402A - Unspecified fracture of shaft of left fibula, initial encounter for closed fracture Category: Medical Plan: TA ganglion. No treatment warranted at this time. (2) Protein modification diet monitoring encounter: Code(s): Z71.3 - Dietary counseling and surveillance Category: Medical Plan: DEXA scan ordered Orders: Orders XR ankle LT min 3V 10/04/23 M25.579 - Pain in unspecified ankle and joints of unspecified foot Coding Level of Care Code Est Pt Level 3 (87969) Diagnoses Left fibular fracture S82.402A Protein modification diet monitoring encounter Z71.3
== END 2023-10-04 11:56 | disposition home or self-care (01) ==
PROVIDERS: PCP Internal Medicine; Visit Provider Orthopaedic Surgery
DX: S82.402A Unspecified fracture of shaft of left fibula, initial encounter for closed fracture (principal); Z71.3 Dietary counseling and surveillance
CPT/HCPCS: 99213

== ENCOUNTER → 2023-11-22 11:35 | Outpatient (RCR) | payer OTHER, SELFPAY ==
[2020-02-17 13:47] VITALS: BP 112/68; PULSE 60; RESP 12; TEMP 36.7; O2SAT 100; BMI 22.4
[2020-02-17 14:11] LABS: MANUAL DIFF FLAG NO
--- NOTE | 2020-02-17 14:28 | PM.HEMONCPN ---
Medical Summary - Medical Summary Date of Service: 02/17/20 Medical Summary: Diagnosis: Increased personal risk of breast cancer. One sister of breast cancer at age 42. Maternal grandmother had endometrial cancer in her 80s. Maternal grandmother had colon cancer at age 62. Paternal uncle of lung cancer. Maternal uncle had multiple myeloma, age 62. She herself has had at least 4 breast biopsies, all of them benign, one was fibroadenoma. She has undergone myRisk testing and has no identifiable genetic predisposition to breast cancer. Based on Tyrer Renetta risk assessment, calculated lifetime risk is 21.5, based on the Tiki model her 5 year risk is greater than 1.7%. Interval History Interval history: Patient is here in follow-up. She is now ready to receive tamoxifen for chemoprophylaxis and wants to discuss further. She continues to menstruate, reports no irregular menstrual bleeding or abnormal Pap smears. She has cut back smoking significantly, now only smokes 1 cigarette a day if at all. She was on Lexapro for a few years but stopped it earlier this year. She is due for her next breast imaging in April of next year. She has no complaints today such as palpable breast lumps, mass or tenderness. She has been in good health overall. Review of Systems - Constitutional Denies body aches, Denies fatigue, Denies lack of energy, Denies night sweats, Denies weight gain, Denies weight loss - Cardiovascular Denies chest pain with activity, Denies excessive sweating, Denies fast heart rate - Respiratory Denies cough - Gastrointestinal Denies no additional gastrointestinal complaints REPLACED BY [facility] Medical History: Medical History (Last Updated 02/17/20 @ 15:08 by Sarah Philippe MD) Fibroadenoma Mood disorder Family History: Family History (Last Updated 02/17/20 @ 09:25 by Rita Carrington) Sister Breast cancer Maternal Grandmother Endometrial cancer Colon cancer Paternal Uncle Lung cancer Maternal Uncle Multiple myeloma Surgical History: Surgical History (Last Updated 02/17/20 @ 09:22 by Rita Carrington) H/O breast biopsy Smoking status: Current some day smoker Oncology Screenings - ECOG Performance Status ECOG Performance Status: 0 Home Medications and Allergies Home Medications Medication Instructions Recorded Confirmed Type fiber 4 tab PO DAILY 02/17/20 02/17/20 History Allergies Allergy/AdvReac Type Severity Reaction Status Date / Time No Known Allergies Allergy Unverified 12/11/19 18:29 [No Known Allergies*] Exam Vital signs: Vital Signs Temp 98.1 F 02/17/20 13:47 Pulse 60 02/17/20 13:47 Resp 12 02/17/20 13:47 BP 112/68 02/17/20 13:47 Pulse Ox 100 02/17/20 13:47 Intake & Output 02/16/20 02/17/20 02/17/20 18:59 06:59 18:59 Other: Weight 62.9 kg Weight 62.9 kg Body Mass Index 22.4 - Constitutional Present: no acute distress - Routine HEENT Exam Head: Present: normal inspection Eye: Present: EOMI - Routine Neck Exam Present: normal inspection. Absent: lymphadenopathy - Routine Respiratory Exam Absent: respiratory distress - Routine Cardiovascular Exam Cardiovascular: Present: S1, S2 Data - Labs CBC & Chem 7: 02/17/20 14:11 02/17/20 14:11 Progress Note: A/P (1) FH: breast cancer Status: Acute Assessment and plan: 1. This is a 44-year-old premenopausal woman with family history of breast cancer. She has undergone myRisk testing and has no identifiable genetic predisposition to breast cancer. Based on Tyrer Renetta risk assessment, calculated lifetime risk is 21.5%, based on the Tiki model her 5 year risk is greater than 1.7%. She qualifies for chemoprophylaxis with tamoxifen. Side effects such as vasomotor symptoms, mood changes, increased incidence of thromboembolic events and increased risk of endometrial cancer was discussed. Blood work today shows mild macrocytic anemia. Vitamin B12, folic acid levels are pending. Tamoxifen 20 mg once daily has been prescribed. She was advised to call if she develops any significant side effects. Follow-up in 4 months. - Time Spent With Patient Total time spent is greater than 50% in coordination of care (as documented) at patient's floor/unit and/or counseling patient: 15 - 24 minutes
[2020-02-17 14:29] LABS: Basophils Absolute Auto 0.1 X10*3/uL (0.0-0.2); Basophils Percent Auto 0.9 % (0-2); Eosinophils Absolute Auto 0.1 X10*3/uL (0.0-0.4); Eosinophils Percent Auto 1.5 % (0-4); Hematocrit 34.5 % (37-47); Hemoglobin 11.8 g/dl (12.0-16.0); Imm Gran Abs Auto 0.01 X10*3/uL (0.00-0.03); Imm Gran Pct Auto 0.2 % (0.0-0.4); Lymphocytes Percent Auto 37.8 % (20-40); Mean Corpuscular HGB Conc 34.2 g/dl (31.0-35.0); Mean Corpuscular Hemoglobin 33.7 pg (27.0-33.0); Mean Corpuscular Volume 98.6 fL (80-98); Mean Platelet Volume 10.2 fL (9.4-12.3); Monocytes Absolute Auto 0.3 X10*3/uL (0.1-1.2); Neutrophils Absolute Auto 2.8 X10*3/uL (2.0-8.3); Neutrophils Percent Auto 53.6 % (45-73); Platelet Count 311 X10*3/uL (160-400); Red Cell Distribution Width 11.9 % (11.0-16.0); White Blood Count 5.3 X10*3/uL (4.8-10.8)
[2020-02-17 14:55] LABS: Alanine Aminotransferase 23 U/L (0-31); Albumin Level 4.4 g/dL (3.5-5.0); Alkaline Phosphatase 40 U/L (39-117); Anion Gap 10 (12-20); Aspartate Amino Transferase 23 U/L (5-31); Bilirubin Total 0.3 mg/dL (0.0-1.0); Blood Urea Nitrogen 10 mg/dL (9-16); Calcium 9.2 mg/dL (8.4-10.2); Carbon Dioxide 28 mmol/L (22-29); Chloride 103 mmol/L (96-108); Creatinine Clr Calc Pharmacy 102.3; Estimated Glomerular Filt Rate > 60; Glucose Random 90 mg/dL (60-115); Potassium 4.1 mmol/l (3.3-5.1); Sodium 137 mmol/L (135-145)
[2020-02-17 15:29] LABS: Retic HGB Equivalent 37.5 pg (30.0-35.0); Reticulocyte Percent 1.2 % (0.5-1.8); Reticulocytes Absolute 0.044 X10*6/uL (0.026-0.095)
--- NOTE | 2020-02-17 15:56 | MHC.HEMONCMA ---
Dr Philippe received most of the patients lab results back, patient is slightly anemic, but the b12 and folic acid are not back yet. Dr Philippe wanted me to call the patient to notify her. I called and spoke with the patient, and notified her, I let her know that she could get some iron pills over the counter to help and that I will call her back with the b12 and folic acid results when they come in. She agrees with plan.
[2020-02-17 16:09] LABS: Folate 10.9 ng/mL (> or = 4.0); Vitamin B12 354 pg/mL (200-900)
--- NOTE | 2020-06-03 13:55 | HE.ONCSEC ---
i left a message on this patients voicemail informing her her televist appointment may take place any time tomorrow (06/04/20) between 10:10 and noon and to call us back if this may be inconvenient for her.
--- NOTE | 2020-06-04 10:38 | HO.HEMONCTE1 ---
[facility] Telehealth - Telehealth Location of Provider rendering services: Office Location of Patient: Home Patient Identification confirmed using: Name, : Yes Telehealth Method: Telephone Patient verbally consented to treatment: Yes Patient verbally consented to billing insurance company: Yes Patient informed of any privacy concerns related to visit: Yes Medical Summary - Medical Summary Date of Service: 06/04/20 Chief complaint: Scheduled follow-up Medical Summary: Diagnosis: Increased personal risk of breast cancer. One sister of breast cancer at age 42. Maternal grandmother had endometrial cancer in her 80s. Maternal grandmother had colon cancer at age 62. Paternal uncle of lung cancer. Maternal uncle had multiple myeloma, age 62. She herself has had at least 4 breast biopsies, all of them benign, one was fibroadenoma. She has undergone myRisk testing and has no identifiable genetic predisposition to breast cancer. Based on Tyrer Advance risk assessment, calculated lifetime risk is 21.5, based on the Tiki model her 5 year risk is greater than 1.7%. Patient started tamoxifen 20 mg/daily in February 2020 Interval History Interval history: This is scheduled follow-up for patient, tele visit arranged today because of COVID-19 pandemic guidelines. Patient has been on tamoxifen for about 4 months. Her main complaint is that her symptoms of anxiety have recurred. She was on Lexapro briefly in the past, this made her brain foggy and she has tried to stay away from it. She also reports some irregular menstrual bleeding, she underwent an endometrial biopsy in April. She does have some hot flashes and night sweats but this is tolerable. She denies nausea, chest pain, shortness of breath, leg or arm swelling. Review of Systems - Constitutional Reports as per HPI, Reports no additional constitutional complaints - Cardiovascular Reports no additional cardiovascular complaints - Respiratory Reports no additional respiratory complaints - Gastrointestinal Reports no additional gastrointestinal complaints Home Medications and Allergies Home Medications Medication Instructions Recorded Confirmed Type fiber 4 tab PO DAILY 02/17/20 02/17/20 History Allergies Allergy/AdvReac Type Severity Reaction Status Date / Time No Known Allergies Allergy Verified 05/17/20 15:42 [No Known Allergies*] Exam Vital signs: Vital Signs Temp 98.1 F 02/17/20 13:47 Pulse 60 02/17/20 13:47 Resp 12 02/17/20 13:47 BP 112/68 02/17/20 13:47 Pulse Ox 100 02/17/20 13:47 Weight 62.9 kg Body Mass Index 22.4 - Constitutional Present: no acute distress - Routine HEENT Exam Head: Present: normal inspection - Routine Neck Exam Present: normal inspection. Absent: lymphadenopathy - Routine Respiratory Exam Absent: respiratory distress - Routine Cardiovascular Exam Cardiovascular: Present: S1, S2 Data - Labs CBC & Chem 7: 02/17/20 14:11 02/17/20 14:11 Labs: 02/17/20 14:11 Reticulocyte Count Routine Vitamin B12 and Folate Routine 02/17/20 14:11 Complete Blood Count Auto Diff Routine Comprehensive Met. Panel Routine 02/17/20 15:22 Add Laboratory Test Urgent Laboratory Last Values WBC 5.3 X10*3/uL (4.8-10.8) 02/17/20 14:11 RBC 3.50 X10*6/uL (4.20-5.50) L 02/17/20 14:11 Hgb 11.8 g/dl (12.0-16.0) L 02/17/20 14:11 Hct 34.5 % (37-47) L 02/17/20 14:11 MCV 98.6 fL (80-98) H 02/17/20 14:11 MCH 33.7 pg (27.0-33.0) H 02/17/20 14:11 MCHC 34.2 g/dl (31.0-35.0) 02/17/20 14:11 RDW 11.9 % (11.0-16.0) 02/17/20 14:11 Plt Count 311 X10*3/uL (160-400) 02/17/20 14:11 MPV 10.2 fL (9.4-12.3) 02/17/20 14:11 Immature Gran % (Auto) 0.2 % (0.0-0.4) 02/17/20 14:11 Neut % (Auto) 53.6 % (45-73) 02/17/20 14:11 Lymph % (Auto) 37.8 % (20-40) 02/17/20 14:11 [place] % (Auto) 6.0 % (2-11) 02/17/20 14:11 Eos % (Auto) 1.5 % (0-4) 02/17/20 14:11 Baso % (Auto) 0.9 % (0-2) 02/17/20 14:11 Lymph # (Auto) 2.0 X10*3/uL (1.2-4.9) 02/17/20 14:11 [place] # (Auto) 0.3 X10*3/uL (0.1-1.2) 02/17/20 14:11 Eos # (Auto) 0.1 X10*3/uL (0.0-0.4) 02/17/20 14:11 Baso # (Auto) 0.1 X10*3/uL (0.0-0.2) 02/17/20 14:11 Abs Immat Gran (auto) 0.01 X10*3/uL (0.00-0.03) 02/17/20 14:11 Absolute Neuts (auto) 2.8 X10*3/uL (2.0-8.3) 02/17/20 14:11 Absolute Nucleated RBC 0.000 X10*3/uL (0.0-0.012) 02/17/20 14:11 Nucleated RBC % (auto) 0.0 /100WBC (0.0-0.2) 02/17/20 14:11 Absolute Retic 0.044 X10*6/uL (0.026-0.095) 02/17/20 14:11 Percent Retic 1.2 % (0.5-1.8) 02/17/20 14:11 Immature Retic Fraction 8.0 % (3.0-15.9) 02/17/20 14:11 Retic Hgb Equivalent 37.5 pg (30.0-35.0) H 02/17/20 14:11 Sodium 137 mmol/L (135-145) 02/17/20 14:11 Potassium 4.1 mmol/l (3.3-5.1) 02/17/20 14:11 Chloride 103 mmol/L (96-108) 02/17/20 14:11 Carbon Dioxide 28 mmol/L (22-29) 02/17/20 14:11 Anion Gap 10 (12-20) L 02/17/20 14:11 BUN 10 mg/dL (9-16) 02/17/20 14:11 Creatinine 0.65 mg/dL (0.5-1.4) 02/17/20 14:11 Estim Creat Clear Calc 102.3 02/17/20 14:11 Estimated GFR > 60 02/17/20 14:11 Random Glucose 90 mg/dL (60-115) 02/17/20 14:11 Calcium 9.2 mg/dL (8.4-10.2) 02/17/20 14:11 Total Bilirubin 0.3 mg/dL (0.0-1.0) 02/17/20 14:11 AST 23 U/L (5-31) 02/17/20 14:11 ALT 23 U/L (0-31) 02/17/20 14:11 Alkaline Phosphatase 40 U/L (39-117) 02/17/20 14:11 Total Protein 7.0 g/dL (6.5-8.0) 02/17/20 14:11 Albumin 4.4 g/dL (3.5-5.0) 02/17/20 14:11 Vitamin B12 354 pg/mL (200-900) 02/17/20 14:11 Folate 10.9 ng/mL (> or = 4.0) 02/17/20 14:11 Progress Note: A/P (1) FH: breast cancer Status: Chronic Assessment and plan: 1. This is a 45-year-old premenopausal woman with family history of breast cancer. She has undergone myRisk testing and has no identifiable genetic predisposition to breast cancer. Based on Tyrer Rneetta risk assessment, calculated lifetime risk is 21.5%, based on the Tiki model her 5 year risk is greater than 1.7%. Patient started tamoxifen in January 2020. She is experiencing significant side effects. She reports recurrence of anxiety symptoms, some hot flashes and night sweats which are tolerable. She had irregular periods, underwent intermittent biopsy in April 2020 which was normal. Her main symptoms at this time are related to her mood changes. Today we discussed either cutting back the tamoxifen to 10 mg once a day for a few weeks to see if that helps or adding low-dose antidepressant such as Lexapro which does not have significant interaction with tamoxifen. She will give it a few more days and decide if she does want to cut back the dose and/or start Lexapro. She will call if she needs a new prescription. Follow-up in 3 months. - Time Spent With Patient Total time spent is greater than 50% in coordination of care (as documented) at patient's floor/unit and/or counseling patient: 15 - 24 minutes
--- NOTE | 2020-06-04 14:01 | MHC.HEMONC ---
Pt had follow up with Dr Philippe via televisit. has not been feeling well. is having all side effects of Tamoxifen, with the anxiety bothering the pt the most. was on lexapro in the past, but does not want to go back on that. did not get menstrual cycle for 2 months, and had uterine biopsy, which was negative. Did have some spotting 2 days ago. Also not sleeping well. States having hot flashes, which are tolerable. Pt spoke with Dr Philippe. Follow up in 4 months.
--- NOTE | 2022-08-10 15:03 | MHC.HEMONC ---
Triage call from pt. She states she is taking tamoxifen daily. Her doctor wants her to start flax oil 1000mg daily. She is questioning if she can take it while taking tamoxifen. Discussed with Dr Philippe, and it is ok to take. Pt aware.
--- NOTE | 2022-10-16 14:46 | MHC.HEMONC ---
Pt called, asked for her Tamoxifen scrip to be sent to [facility] pharmacy instead of her [facility]. Nurse added [facility] pharmacy as pt's preferred pharmacy, asked Dr. Philippe to send scrip. Unfortunately, when nurse called to confirm scrip was ready, pharmacist said that pt's [facility] employee insurance is not accepted yet at this time at [facility] pharmacy. Nurse notified pt, who said she still has refill at [facility], which she will fill for now.
--- NOTE | 2023-02-13 10:08 | MHC.HEMONC ---
Pt called to have Tamoxifen refilled. Dr Philippe refilled and asked to have pt make f/u. Norah to schedule it.
--- NOTE | 2023-02-13 10:10 | HE.ONCSEC ---
SEBASM informing pt her prescription for Tamoxfin has been called and and can be picked up at [facility] pharmacy. Also asked pt to call the office to schedule a F/U appt.
== END | disposition home or self-care (01) ==
LOC: HO.ONC 02-17 13:34
PROVIDERS: Visit Provider Internal Medicine
DX: F41.9 Anxiety disorder, unspecified (principal); Z80.3 Family history of malignant neoplasm of breast; Z79.810 Long term (current) use of selective estrogen receptor modulators (SERMs); Z80.0 Family history of malignant neoplasm of digestive organs; Z80.2 Family history of malignant neoplasm of other respiratory and intrathoracic organs
CPT/HCPCS: 36415; 80053; 82607; 82746; 85025; 85045; 99214

== ENCOUNTER 2023-12-19 12:48 | Outpatient (REF) | payer OTHER, SELFPAY ==
--- NOTE | ~2023-12-19 | US_ITS ---
EXAMINATION: US PELVIS CLINICAL INFORMATION: Abnormal uterine and vaginal bleeding COMPARISON: 10/10/2021 TECHNIQUE: Ultrasound of the pelvis is performed using both transabdominal and transvaginal transducers along with Doppler. Transvaginal imaging is performed due to inadequate visualization transabdominally. FINDINGS: Uterus: The uterus is anteverted and measures 11.4 x 6.5 x 8.1 cm. Multiple small nabothian cysts noted. The double wall endometrial thickness is 4.0 cm. Patient was on tamoxifen therapy 3.5 years ago. Fundal fibroids are seen, better on transabdominal scanning. 2.2 x 3.0 x 3.5 cm and 3.1 x 2.7 x 3.1 cm. No substantial change. Adnexa: Both ovaries are visualized. There is normal color flow to the adnexa. There is no ovarian torsion. There is no pelvic ascites or fluid collection. Right ovary measures 3.9 x 2.2 x 2.2 cm. Complex physiologic cyst right ovary at 15 x 15 x 15 mm. Left ovary measures 2.7 x 1.2 x 1.4 cm. US/US pelvic and transvaginal IMPRESSION: Thickened endometrium likely secondary to the patient's tamoxifen therapy. Electronically signed by: Arturo López MD 12/19/2023 03:00 PM EDT
[2023-12-20 18:33] LABS: Follicle Stimulating Hormone 7.4 mIU/mL
== END 2023-12-19 12:49 | disposition home or self-care (01) ==
LOC: HO.US 12:48
PROVIDERS: PCP Internal Medicine; Visit Provider Advanced Practice Midwife
DX: N93.9 Abnormal uterine and vaginal bleeding, unspecified (principal); N92.6 Irregular menstruation, unspecified
CPT/HCPCS: 36415; 58100; 76830; 76856; 81025; 83001

== ENCOUNTER 2023-12-19 13:32 | Outpatient (AMB) | payer OTHER, SELFPAY ==
--- NOTE | 2023-12-19 13:38 | MHC.OFFVIS ---
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 History of Tamoxifen use x3.5 years, discontinued in early October. Prior to Tamoxifen use cycle history was Q 26 days. Amenorrhea prominently with the use. LMP 12/04/2023, bled for 4-5 days, heavy menstrual bleeding 2-3 days out of the 5. Restarted spotting several days later and intermittently up until yesterday. Ultrasound today revealed a complex ovarian cyst. FSH is pending. [facility] Medical History (Updated 12/19/23 @ 14:05 by Zaynab Garduno CNM) Irregular bleeding Raynauds phenomenon Vitamin D deficiency Chronic anemia H/O sigmoidoscopy Fibroadenoma Surgical History (Updated 09/21/23 @ 09:24 by Sarah Philippe MD) Hx of oral surgery (~05/11/23) Hx of colonoscopy H/O breast biopsy Family History Sister Breast cancer, Onset Age: 38 Maternal Grandmother Endometrial cancer Colon cancer Paternal Uncle Lung cancer Maternal Uncle Multiple myeloma Maternal Uncle Bladder cancer Maternal Aunt Cancer of kidney Mother IBS (irritable bowel syndrome) FH: HTN (hypertension) Father FH: HTN (hypertension) Other Family history of Alayna thyroiditis Family history of lupus erythematosus Family history of vasculitis Social History Household Members: Spouse and Children Housing: House Alcohol intake: current Alcohol intake frequency: holidays/special occasions only Alcohol type: wine Patient Tobacco Use Status: Never used Tobacco Second Hand Smoke Exposure: No service: No Current occupational status: employed Cognitive needs: No Hearing needs: No Vision needs: Yes Female Reproductive History Menstrual Duration of menses: 3-5 days Date of last menstrual period: 12/04/23 control method: none Total pregnancies: 2 Full term: 2 Number of Living Children: 2 Date of last pap smear: 12/14/22 (neg pap and hpv) Date of Mammogram: 07/26/23 (Birad 2) Other: colonoscopy 02/2023 Review of Systems Const All systems reviewed & are unremarkable except as noted in HPI and below Physical Exam Vital Signs: Last Vital Signs BP 100/60 12/19/23 13:44 BMI result Body Mass Index 20.2 Const General: cooperative, healthy appearing and no acute distress Orientation/consciousness: patient oriented x3 GI Inspection: Yes normal to inspection Palpation (GI): Soft to palpation and Other GI palpation findings present (Nontender) Rectal Exam - Female: visual inspection normal General: Yes bladder normal to palpation External Female Exam: normal appearance of the urethra Speculum Exam - Vagina: normal appearance of the vagina, normal palpation, normal vaginal discharge and vaginal bleeding (Small amount of blood from os) Speculum Exam - Cervix: normal appearance of the cervix and normal palpation Bimanual exam- vagina & uterus: normal bimanual exam, normal palpation, uterine size normal, bladder normal to palpation, normal palpation, uterine shape normal and non-tender Bimanual Exam- Adnexa, other: normal adnexae OB/external & speculum: vaginal bleeding (Small amount of blood from os) Neuro General: patient oriented x3 Office Procedures Endometrial Biopsy Details: The patient is here today for an endometrial biopsy due to AUB to rule out any pathology including atypical, hyperplasia or cancer cells of the uterus. She was counseled regarding anticipatory guidance for the procedure including the risks for pain, infection, bleeding, perforation, potential injury to the tissues may include the cervix, uterus, tubes, bladder and bowels. These injuries may include further treatment and evaluation including surgery, blood transfusions, antibiotics, hospitalizations and anesthesia. Permanent injury and scarring can occur. She was consented for the procedure, and the consent forms were signed. She is agreeable to have the procedure today. All questions were answered. Endometrial Biopsy Procedure: The patient was placed in the dorsal lithotomy position and a sterile speculum inserted. Using aseptic technique for the procedure. The cervix was cleansed with Betadine x 3 swabs. A single toothed tenaculum was placed on the cervix for stabilization and the uterus was sounded to 9 cm with a 4mm pipelle, and tissue sample obtained. Minimal bleeding was observed. The tissue sample was placed in formalin in a patient labeled container by staff assisting and sent to the pathology department for processing and interpretation. The patient tolerate the procedure well and was in good condition when leaving the department. Endometrial Biopsy Post Procedure Care: Nothing in the vagina including: tampons, douching or intimacy until all the bleeding has subsided. There may be some post procedure bleeding for several days, this bleeding is usually light and may turn to a light brown or pink color. Mild cramps may occurs. Nothing in the vaginal including: tampons, douching, or intimacy until all the bleeding has subsided. You may take an over the counter mild analgesic such as Tylenol or Advil (if no allergies) per the manufactures recommendation on dosing, frequency, and follow the directions completely. Call the office if any: fever (over 100.4), flu like symptoms, abdominal pain (worse than cramping), foul smelling, infected appearing vaginal discharge, or heavy bleeding. If indicated: Use condoms to prevent and STI's, and only after the bleeding has stopped completely. Return to the office in 2 weeks for results and plan of care. This note is constructed using voice recognition software. While every effort has been made to ensure accuracy, funds transfer clerk errors may have been included. [id number] Biopsy Results AMB Test Urine AMB Test Urine Negative Last Edit by DIANA Moore on 12/19/23 13:48 Results Reviewed Results Reviewed: [address] [address] Ultrasound Report Signed Patient: Steven Padron MR#: [id number] : 1975 Acct:[id number] Age/Sex: 48 / F ADM Date: 12/19/23 Loc: HO.US Attending Dr: Zaynab Garduno CNM Ordering Physician: Zaynab Garduno CNM Date of Service: 12/19/23 Procedure(s): US pelvic and transvaginal Accession Number(s): [id number] cc: Jerry Guerra MD; Zaynab Garduno CNM~ EXAMINATION: US PELVIS CLINICAL INFORMATION: Abnormal uterine and vaginal bleeding COMPARISON: 10/10/2021 TECHNIQUE: Ultrasound of the pelvis is performed using both transabdominal and transvaginal transducers along with Doppler. Transvaginal imaging is performed due to inadequate visualization transabdominally. FINDINGS: Uterus: The uterus is anteverted and measures 11.4 x 6.5 x 8.1 cm. Multiple small nabothian cysts noted. The double wall endometrial thickness is 4.0 cm. Patient was on tamoxifen therapy 3.5 years ago. Fundal fibroids are seen, better on transabdominal scanning. 2.2 x 3.0 x 3.5 cm and 3.1 x 2.7 x 3.1 cm. No substantial change. Adnexa: Both ovaries are visualized. There is normal color flow to the adnexa. There is no ovarian torsion. There is no pelvic ascites or fluid collection. Right ovary measures 3.9 x 2.2 x 2.2 cm. Complex physiologic cyst right ovary at 15 x 15 x 15 mm. Left ovary measures 2.7 x 1.2 x 1.4 cm. US/US pelvic and transvaginal IMPRESSION: Thickened endometrium likely secondary to the patient's tamoxifen therapy. Electronically signed by: Arturo López MD 12/19/2023 03:00 PM EDT RP Dictated By: Arturo López MD Signed By: <Electronically signed by Arturo López MD in OV> 12/19/23 1500 DD/ 1306 TD/TT: 12/19/23 1323 Information Security Analyst: Assessment & Plan Assessment & Plan (1) Irregular bleeding: Code(s): N92.6 - Irregular menstruation, unspecified Category: Medical Plan Discussed: Ultrasound findings-complex ovarian cyst, fibroids-stable. Counseled regarding findings of: Complex ovarian cyst, which is often benign, and most resolve on their own overtime. Some develop into premalignant or malignant tumors. Limitations of testing for diagnostic purposes. Further monitoring and evaluation is recommended with US, possible CT, or MRI study. Orders placed for 6-8 weeks out with plans for a follow up to discuss results. Advised to report any right sided pelvic pain. If persists, or is indicated (Ca-125, Carbohydrate Antigen 19-9, & Carcinoembryonic Antigen) labs will be ordered and referral to [facility] or general gynecology for MD care if indicated for possible surgical consult. Follow up in person for test results. All of her questions and concerns were addressed to the best of my ability and shared decision making. She is agreeable to the plan of care. This note is constructed using voice recognition software. While every effort has been made to ensure accuracy, funds transfer clerk errors may have been included. Orders: Orders US pelvic and transvaginal Today N93.9 - Abnormal uterine and vaginal bleeding, unspecified AMB HCG Urine Test Today N93.9 - Abnormal uterine and vaginal bleeding, unspecified Follicle Stimulating Hormone Today N92.6 - Irregular menstruation, unspecified Surgical Today N93.9 - Abnormal uterine and vaginal bleeding, unspecified US pelvic and transvaginal 6 Weeks N83.299 - Other ovarian cyst, unspecified side Coding Level of Care Code Procedure Only Diagnoses Irregular bleeding N92.6 CPT Codes Endometrial Biopsy - CPT: 35323-Lmjjwvoormo Biopsy ([id number])
[2023-12-19 13:44] VITALS: BP 100/60; BMI 20.2
== END 2023-12-19 15:34 | disposition home or self-care (01) ==
LOC: HO.HWS 13:32
PROVIDERS: PCP Internal Medicine; Visit Provider Advanced Practice Midwife
DX: Z01.419 Encounter for gynecological examination (general) (routine) without abnormal findings (principal); N92.6 Irregular menstruation, unspecified; N93.9 Abnormal uterine and vaginal bleeding, unspecified; Z32.02 Encounter for pregnancy test, result negative
CPT/HCPCS: 58100; 99396

== ENCOUNTER 2023-12-19 15:27 | Outpatient (REF) | payer OTHER, SELFPAY | END 2023-12-19 15:28 | disposition home or self-care (01) | LOC: HO.LAB 15:27 | PROVIDERS: Visit Provider Advanced Practice Midwife | DX: N93.9 Abnormal uterine and vaginal bleeding, unspecified (principal) | CPT/HCPCS: 88305 ==

== ENCOUNTER 2024-01-30 10:54 | Outpatient (REF) | payer OTHER, SELFPAY | END 2024-01-30 10:55 | disposition home or self-care (01) | LOC: HO.US 10:54 | PROVIDERS: PCP Internal Medicine; Visit Provider Advanced Practice Midwife | DX: N83.299 Other ovarian cyst, unspecified side (principal); N93.9 Abnormal uterine and vaginal bleeding, unspecified | CPT/HCPCS: 76830; 76856 ==

== ENCOUNTER 2024-04-03 09:16 | Outpatient (AMB) | payer OTHER, SELFPAY ==
--- NOTE | 2024-04-03 09:18 | A.OFFVIS_ITS ---
Vital Signs 04/03/24 09:19 Height 5 ft 6 in Weight 132 lb 4.438 oz BMI 21.3 BP 106/72 Blood Pressure Location Lt brachial Position Sitting Pulse 55 Pulse Source Pulse Oximeter Intake Visit Reasons: follow up Intake Note: Patient present today for follow up visit. Accounts Receivable Supervisor Required: No Accompanied by: se Allergies No Known Allergies [No Known Allergies*] Allergy (Verified 04/03/24 09:24) Medication List - Last Reconciled 04/03/24 by Sharron Buitrago MD multivitamin 1 tab PO DAILY [Wheelchair As directed] HPI Comments Details: Patient presents for follow-up. Over the last 1-2 months she has been having bilateral shoulder pain and stiffness, sometimes difficulty taking off her sports bra, she has been having some difficulty at the gym especially with the push day, she has had to lower her weights. She denies any swollen joints. Denies any fevers. She continues to have symptomatic dry eyes, she takes flaxseed oil multiple times a day and puts artificial tears in her eyes at night, denies dry eyes. Patient wakes up a few times in the middle of the night and checks her phone. Initial history: New pt presents today for consult. Patient has been having dry eye and was evaluated by fuselage framer Dr. Car. She has a positive Brit test. Sjogren's testing was advised. Patient states that she has a cousin with lupus and a maternal aunt with vasculitis. Patient denies dry mouth. Denies joint pain. No weight change. No fevers. No skin rashes. States that she has had Raynaud's for many years but it has been worse over the past few years. She states that when she went skiing her fingers would turn blue. She can reverse them when putting her fingers under warm water. Fingers do not change color if she brings something from the freezer. Denies any history of digital ulcers. No cough or shortness of breath. States that she has a cyst at the floor of her mouth that was evaluated by multiple oral surgeons and ENT specialists and was told this was potentially a thyroglossal duct cyst. She was told this can be removed surgically on an elective basis. [facility] Medical History Irregular bleeding Raynauds phenomenon Vitamin D deficiency Chronic anemia H/O sigmoidoscopy Fibroadenoma Surgical History Hx of oral surgery (~05/11/23) Hx of colonoscopy H/O breast biopsy Family History Sister Breast cancer, Onset Age: 38 Maternal Grandmother Endometrial cancer Colon cancer Paternal Uncle Lung cancer Maternal Uncle Multiple myeloma Maternal Uncle Bladder cancer Maternal Aunt Cancer of kidney Mother IBS (irritable bowel syndrome) FH: HTN (hypertension) Father FH: HTN (hypertension) Other Family history of Alayna thyroiditis Family history of lupus erythematosus Family history of vasculitis Social History Household Members: Spouse and Children Housing: House Alcohol intake: current Alcohol intake frequency: holidays/special occasions only Alcohol type: wine Patient Tobacco Use Status: Never used Tobacco Second Hand Smoke Exposure: No service: No Current occupational status: employed Cognitive needs: No Hearing needs: No Vision needs: Yes Female Reproductive History Menstrual Duration of menses: 3-5 days control method: none Total pregnancies: 2 Full term: 2 Number of Living Children: 2 Date of Mammogram: 07/26/23 (Birad 2) Review of Systems Musc Reports arthralgias, Denies joint swelling and Reports muscle weakness Physical Exam Vital Signs: Last Vital Signs Pulse 55 04/03/24 09:19 BP 106/72 04/03/24 09:19 BMI result Body Mass Index 21.3 Const General: cooperative and healthy appearing Nutritional Appearance: average body habitus Orientation/consciousness: patient oriented x3 Limitations: no limitations HEENT Head: Yes normocephalic and Yes atraumatic Mouth: moist mucous membranes Resp Effort & Inspection: normal respiratory effort and able to speak in complete sentences Cardio Rate: regular rate Rhythm: regular rhythm GI Inspection: No distended Palpation (GI): Soft to palpation and nontender Skin General skin exam: no rashes or lesions noted Neuro General: patient oriented x3 Extrem Other: No active synovitis Normal pain-free range of motion of elbows and shoulders Negative rotator cuff provocative maneuvers bilaterally Negative Speed's test bilaterally No trochanteric bursa area tenderness Negative straight leg raise test bilaterally No hip pain with manipulation bilaterally Normal nailfold capillaroscopy Assessment & Plan Assessment & Plan (1) Bilateral shoulder pain: Code(s): M25.511 - Pain in right shoulder; M25.512 - Pain in left shoulder Category: Medical Qualifiers: Chronicity: chronic Qualified Code(s): M25.511 - Pain in right shoulder; M25.512 - Pain in left shoulder; G89.29 - Other chronic pain Plan: This is a 48-year-old female who presents for evaluation of 1-2 month history of bilateral shoulder pain and some weakness. PMR was suspected. Upon evaluation I do not see any symptoms or signs suggestive of PMR or any inflammatory arthritis. She has few myofascial tender points. We discussed its management Patient was referred by Ophthalmology 2022 for evaluation of dry eye, at that time comprehensive serology was negative, patient did not have dry mouth, and were no signs suggestive of an autoimmune rheumatic disease Follow-up as needed Plan I spent 15 minutes reviewing patient's chart, evaluating patient, counseling patient and documenting in the chart Coding Level of Care Code Est Pt Level 3 (10047) Diagnoses Chronic pain of both shoulders M25.511; M25.512; G89.29 Chronicity: chronic
[2024-04-03 09:19] VITALS: BP 106/72; PULSE 55; BMI 21.3
--- OUTSIDE RECORDS SUMMARY | 2024-04-03 09:31 | XMS_ITS | Patient Health Record ---
Author Organization [facility] Address [address] [place] [id number] Care Team Providers Care Parts Analyst Name Role Phone Charlie KENNEDY, [place] Primary Care Provider Norman Villalba Jr Unavailable [phone] ALLERGIES No Known Allergies REASON FOR REFERRAL No Information MEDICATIONS Medication SIG (Take, Route, Frequency, Duration) Notes Start Date End Date Status Tamoxifen Citrate 20 MG 1 tablet Orally Once a day for 30 day(s) Active Dulcolax (colon prep) 5 MG take at 3:00 p.m and 7:00p.m. Orally two tablets twice a day for one day for 1 day 02/27/2023 Active MiraLax (colon prep) 8.3 ounce ((238) grams mixed with Gatorade or Crystal Light orally begin at 5:00 p.m. the day before the procedure for 1 day 02/27/2023 Active IMMUNIZATIONS Vaccine Route Administration Date Status Comme nts Influenza Unknown 02/07/2023 Administered SOCIAL HISTORY Tobacco Use: Social History Observation Description Date Details (start date - stop date) Never Smoker NA - NA Sex Assigned At : Social History Observation Description Sex Assigned At Unknown Tobacco Use/Smoking Question Answer Notes Patient is a nonsmoker Alcohol Screen Question Answer Notes Did you have a drink contain ing alcohol in the past year? Yes How often did you have a dri nk containing alcohol in the past year? Monthly or less (1 point) How many drinks did you have on a typical day when you were drinking in the past year? 1 or 2 drinks (0 point) How often did you have 6 or more drinks on one occasion in the past year? Never (0 point) Points 1 Interpretation Negative PROBLEMS Problem Type ICD Code Onset Dates Problem Status W/U Status Risk SNOMED Code Notes Problem Colon cancer screening (Z12.11) Active confirmed 841390058 Problem Encounter for other preprocedural examination (Z01.818) Active confirmed [id number] PLAN OF TREATMENT Future Test Test Name Order Date COLONOSCOPY 02/12/2023 Insurance Providers Payer Name Payer Address Payer Phone Subscriber Number Group Number Insured Name Patient Relationship to Insured Coverage Start Date Coverage End Date [employer] [place] [address] [address] [place] [address] [id number] DINA TELLES Self - patient is the insured MEDICAL (GENERAL) HISTORY Medical History History ICD Code Family history of breast cancer Anemia Surgical History Surgery Date(Month/Year)
--- OUTSIDE RECORDS SUMMARY | 2024-04-03 09:31 | XMS_ITS ---
Author Organization [facility] Address [address] [place] [address] Care Team Providers Care Museum Tour Guide Name Role Phone Charlie KENNEDY, [place] Primary Care Provider Norman Villalba Jr Unavailable REASON FOR VISIT screening Encounters Encounter Location Date Provider Diagnosis [facility] Outpatient [address] [place], [place] [id number] 03/07/2023 Norman Banks Jr Encounter for screening colonoscopy Z12.11 ; Colon polyps K63.5 and Other hemorrhoids K64.8 ASSESSMENTS Encounter Date Diagnosis Assessment Notes Treatment Notes Treatment Clinical Notes 03/07/2023 Encounter for screening colonoscopy (ICD-10 - Z12.11) 03/07/2023 Colon polyps (ICD-10 - K63.5) 03/07/2023 Other hemorrhoids (ICD-10 - K64.8) PLAN OF TREATMENT No Information
--- OUTSIDE RECORDS SUMMARY | 2024-04-03 09:31 | XMS_ITS ---
Author Organization [facility] Address [address] [place] [address] Care Team Providers Care Programming Director Name Role Phone Charlie KENNEYD, [place] Primary Care Provider Unava radha Banks Jr, Norman Unavailable REASON FOR VISIT pathology/ 10 yr colon recall Encounters Encounter Location Date Provider Diagnosis [facility] [address] [place] [address] 03/14/2023 Norman Banks Jr PLAN OF TREATMENT No Information
--- OUTSIDE RECORDS SUMMARY | 2024-04-03 09:31 | XMS_ITS ---
Author Organization [facility] Address [address] [place] [id number] Care Team Providers Care Printed Circuit Board Assembler Name Role Phone Charlie KENNEDY, [place] Primary Care Provider Jhonatan Banks Jr, Norman [facility] [phone] REASON FOR VISIT scripts to pharmacy MEDICATIONS Medication SIG (Take, Route, Frequency, Duration) Notes Start Date End Date Status Dulcolax (colon prep) 5 MG take at 3:00 p.m and 7:00p.m. Orally two tablets twice a day for one day for 1 day 02/27/2023 Active MiraLax (colon prep) 8.3 ounce ((238) grams mixed with Gatorade or Crystal Light orally begin at 5:00 p.m. the day before the procedure for 1 day 02/27/2023 Active Encounters Encounter Location Date Provider Diagnosis [facility] [address] [address] 02/27/2023 Norman Banks Jr PLAN OF TREATMENT Medication Medication Name Sig Start Date Stop Date Notes Dulcolax (colon prep) 5 MG take at 3:00 p.m and 7:00p.m. Orally two tablets twice a day for one day for 1 day 02/27/2023 MiraLax (colon prep) 8.3 oun ce ((238) grams mixed with Gatorade or Crystal Light orally begin at 5:00 p.m. the day before the procedure for 1 day 02/27/2023
== END 2024-04-03 10:24 | disposition home or self-care (01) ==
PROVIDERS: PCP Internal Medicine; Visit Provider Student in an Organized Health Care Education/Training Program
DX: M25.511 Pain in right shoulder (principal); M25.512 Pain in left shoulder; G89.29 Other chronic pain
CPT/HCPCS: 99213

== ENCOUNTER 2024-06-16 08:04 | Outpatient (REF) | payer OTHER, SELFPAY ==
--- NOTE | ~2024-06-16 | MR_ITS ---
CLINICAL HISTORY: Pain, Unspec chronicity, Ligament Pain, eval deltoid ligament Exam: MRI of the left ankle without intravenous contrast. Comparison: None. Findings: Overall bony alignment is anatomic. No acute fractures identified. Mild bone marrow edema of the tip of the medial malleolus with tiny cystic change. No well-defined fracture line is seen. Achilles tendon is intact. Anterior tendons, medial tendons, and peroneal tendons are intact without tear or tendinopathy. Grade 1 sprain of the anterior talofibular ligament. Posterior talofibular ligament and calcaneofibular ligament are intact. Grade 1 sprain of the deep and superficial fibers of the deltoid ligament without ligament tear. Grade 1 sprain of the spring ligament. Plantar fascia is intact. Impression: 1. No acute fracture. 2. Grade 1 sprains of the anterior talofibular ligament, deltoid ligament, and spring ligament. 3. No tendon tear. This document has been electronically signed by: Bret Mariee MD on 06/18/2024 06:15:55
== END 2024-06-16 08:05 | disposition home or self-care (01) ==
LOC: HO.MRI 08:04
PROVIDERS: PCP Internal Medicine; Visit Provider Orthopaedic Surgery Foot and Ankle Surgery
DX: M25.572 Pain in left ankle and joints of left foot (principal)
CPT/HCPCS: 73721

== ENCOUNTER → 2024-06-16 08:18 | Outpatient (BNV) | payer OTHER, SELFPAY | PROVIDERS: PCP Internal Medicine; Visit Provider Radiology Diagnostic Radiology | DX: M25.572 Pain in left ankle and joints of left foot (principal) | CPT/HCPCS: 73721 ==

== ENCOUNTER 2024-07-09 16:08 | Outpatient (AMB) | payer OTHER, SELFPAY ==
[2024-07-09 16:23] VITALS: BP 110/78; PULSE 59; O2SAT 95; BMI 21.3
--- NOTE | 2024-07-09 16:23 | A.OFFPC_ITS ---
Vital Signs 07/09/24 16:23 Height 5 ft 6 in Weight 132 lb BMI 21.3 BP 110/78 Blood Pressure Location Lt brachial Position Sitting Pulse 59 Pulse Source Pulse Oximeter Pulse Oximetry (%) 95 Oxygen Delivery Method Room Air Intake Visit Reasons: PE Importer Or Exporter Required: No Accompanied by: Self / Same As Patient Allergies No Known Allergies [No Known Allergies*] Allergy (Verified 07/10/24 02:37) Medication List - Last Reconciled 07/10/24 by Jerry Guerra MD multivitamin 1 tab PO DAILY Tobacco use date assessed: 07/09/24 Dental Screening Dental Screen Date: 07/09/24 Did you have a dental visit in the last 12 months?: Yes Did you have a dental problem in the last 6 months where you did not have access to dental care?: No Was dental information given to patient?: Patient has dentist HPI PE HPI Details Patient comes in today for her annual physical examination States that she feels okay She is still experiencing some recurrent pain and discomfort in her left ankle and she is currently going again to physical therapy to help address her recurrent left ankle symptoms MRI of the left ankle done a couple weeks ago on 06/18/2024 revealed (+) grade 1 sprains of the anterior talofibular ligament, deltoid ligament and spring ligament, with no acute fracture and no tendon tear Patient also continues to be concerned about hair thinning/hair loss and has seen dermatology for this in the past year or so - she was reportedly advised that her hair thinning was likely a side effect of Tamoxifen, which she was on at the time for chemoprophylaxis for breast cancer She started Tamoxifen 20 mg QD in February 2020, and after discussions with her oncologist and her , who is a practicing convertible top installer here at [facility] [place], she decided to stop taking her Tamoxifen in October of last year (2023) after being on Tamoxifen for approximately 3.5 years instead of the original intended treatment duration of 5 years She plans to follow up with dermatology again soon to reassess her hair loss symptoms and is concerned about the possibility that she may have androgenic alopecia - she referenced some thinning of her hair particularly in a couple of places over the left frontal scalp area but there are no large patches or areas of hair loss noted at present Patient denies any headaches or dizziness Denies any chest pains, no shortness of breath No nausea/vomiting, no abdominal pain No change in bowel habits noted She denies any acute urinary symptoms She is up-to-date with her breast cancer screening and is scheduled for her next annual mammography in a couple weeks on 07/28/2024 She is also up-to-date with her yearly gynecology exam and pap smear She did undergo endometrial biopsy back in November 2023 due to abnormal vaginal bleeding - her biopsy came back normal and was she advised then her abnormal bleeding was likely related to her Tamoxifen therapy, which she just discontinued at the time She had her screening colonoscopy last done with Dr. Banks in February 2023 and recalls being advised that her colonoscopy came back normal and her next repeat colonoscopy will be due in 10 years (2032) REPLACED BY [facility] Medical History Irregular bleeding Raynauds phenomenon Vitamin D deficiency Chronic anemia H/O sigmoidoscopy Fibroadenoma Surgical History Hx of oral surgery (~05/11/23) Hx of colonoscopy H/O breast biopsy Family History Sister Breast cancer, Onset Age: 38 Maternal Grandmother Endometrial cancer Colon cancer Paternal Uncle Lung cancer Maternal Uncle Multiple myeloma Maternal Uncle Bladder cancer Maternal Aunt Cancer of kidney Mother IBS (irritable bowel syndrome) FH: HTN (hypertension) Father FH: HTN (hypertension) Other Family history of Alay[place] thyroiditis Family history of lupus erythematosus Family history of vasculitis Social History Household Members: Spouse and Children Housing: House Alcohol intake: current Alcohol intake frequency: holidays/special occasions only Alcohol type: wine Patient Tobacco Use Status: Never used Tobacco e-Cigarette/Vaping Use: Never Used Second Hand Smoke Exposure: No service: No Current occupational status: employed Cognitive needs: No Hearing needs: No Vision needs: Yes Questionnaire PHQ-9 Over the last 2 weeks, how often have you been bothered by any of the following problems? 1. Little interest or pleasure in doing things: not at all 2. Feeling down, depressed, or hopeless: not at all 3. Trouble falling or staying asleep, or sleeping too much: not at all 4. Feeling tired or having little energy: not at all 5. Poor appetite or overeating: not at all 6. Feeling bad about yourself - or that you are a failure or have let yourself or your family down: not at all 7. Trouble concentrating on things, such as reading the newspaper or watching television: not at all 8. Moving or speaking so slowly that other people could have noticed. Or the opposite - being so fidgety or restless that you have been moving around a lot more than usual: not at all 9. Thoughts that you would be better off or of hurting yourself in some way: not at all Total score: 0 Depression Screening Interpretation: Negative (patient used to take Lexapro but is no longer on it - mood symptoms were likely related to her Tamoxifen Rx at the time) Depression Screening Done: Yes [address]7040 - PHQ-9 Billing: Yes Source: Developed by Drs. Mj Drake, Lori Fagan, Mike Hinojosa and colleagues, with an educational fani from [employer]. Thrive Questionnaire Date Thrive assessed: 07/09/24 I am a: Patient What is your living situation today?: I have a steady place to live Within the past 12 months, did the food you bought not last and you didn't have the money to get more?: Never true Within the past 12 months, did you worry whether your food would run out before you got money to buy more?: Never true Do you have trouble paying for medicines?: No Do you have trouble getting transportation to medical appointments?: No Do you have trouble paying your heating and electricity bill?: No Do you have trouble taking care of your child, family member or friend?: No Do you have trouble with day-to-day activities such as bathing, preparing meals, shopping, managing finances, etc.?: No Are you currently unemployed and looking for a job?: No Are you interested in more education?: No Please select the resources that you would like help with: None Currently or been in a relationship where the following occur: No concerns reported THRIVE Score: 0 AUDIT C Alcohol Use Questionnaire (AUDIT-C) 1. How often do you have a drink containing alcohol?: 2-4 times a month 2. How many drinks containing alcohol do you have on a typical day when you are drinking?: 1 or 2 3. How often do you have six or more drinks on one occasion?: Never Total Score: 2 Score Reviewed/Action Taken: Yes BERTO-7 AMB Questionnaire BERTO-7 Date BERTO - 7 assessed: 07/09/24 Feeling nervous, anxious, or on edge: 0 = Not at all Not being able to stop or control worryin = Not at all Worrying too much about different things: 0 = Not at all Trouble relaxin = Not at all Being so restless that it is hard to sit still: 0 = Not at all Becoming easily annoyed or irritable: 0 = Not at all Feeling afraid as if something awful might happen: 0 = Not at all Total BERTO-7 score (0-4 normal; 5-9 mild; 10-14 moderate; 15-21 severe): 0 Source: Developed by Drs. Mj Drake, Lori Fagan, Mike Hinojosa and colleagues, with an educational fani from [employer]. Review of Systems Const Denies chills, Denies fatigue, Denies fever(s), Denies headache(s) and Denies malaise Eyes Denies blurry vision, Denies change in vision, Denies irritation and Denies itchy eyes ENT Denies dysphagia, Denies dizziness, Denies otalgia, Denies headache(s), Denies nasal congestion, Denies neck pain, Denies odynophagia, Denies sinus pain and Denies sore throat Card Denies chest pain, Denies rapid heart rate, Denies irregular heart rhythm, Denies palpitations and Denies dyspnea Resp Denies chest congestion, Denies cough, Denies dyspnea and Denies wheezing GI Denies abdominal pain, Denies bloating, Denies constipation, Denies dysphagia, Denies heartburn, Denies diarrhea, Denies nausea, Denies odynophagia and Denies vomiting Denies hematuria, Denies urinary frequency, Denies dysuria, Denies urinary incontinence and Denies urinary urgency Musc Denies back pain, Reports arthralgias (recurrent in the left ankle), Denies joint swelling, Denies muscle weakness and Denies neck pain Skin/Breast Denies breast pain, Denies breast mass, Denies change in pigmentation, Reports alopecia (see HPI), Denies lesions, Denies rash and Denies unusual bruising Neuro Denies dizziness, Denies headache(s) and Denies paresthesias Psych Denies anxiety and Denies depression Endo Denies fatigue and Denies palpitations Royal/Lymph Denies easy bruising Aller/Immun Denies itchy eyes and Denies wheezing Physical exam (Primary Care) Vital Signs: Last Vital Signs Pulse 59 07/09/24 16:23 BP 110/78 07/09/24 16:23 Pulse Ox 95 07/09/24 16:23 Oxygen Delivery Method Room Air 07/09/24 16:23 BMI result Body Mass Index 21.3 Tobacco/Smoking Status: Tobacco use Status Tobacco use date assessed 07/09/24 07/09/24 16:26 Patient Tobacco Use Status Never used Tobacco 07/09/24 16:26 e-Cigarette/Vaping Use Never Used 07/09/24 16:30 PHQ-9: PHQ-9 Score PHQ-9: Total score 0 07/09/24 17:02 Depression Screening Interpretation: Negative (patient used to take Lexapro but is no longer on it - mood symptoms were likely related to her Tamoxifen Rx at the time) Thrive Assessment: Date of Thrive Assessment Date Thrive assessed 07/09/24 07/09/24 16:26 Currently or been in a relationship where the following occur: No concerns reported Const General: no acute distress, alert and awake Orientation/consciousness: patient oriented x3 HENMT Head: Yes normocephalic and Yes atraumatic Ears: external ears normal, TM's normal bilaterally and EAC's normal General nose exam: No nasal discharge present Face and sinus: Yes normal facial exam and Yes sinuses nontender Teeth and gingiva: dentition normal Throat: Yes posterior oropharynx normal and Yes tonsils normal (no TP congestion) Eyes Eyelids: Yes eyelids normal Conjunctivae: conjunctivae normal Pupils: Equal, round and reactive pupils present EOM: EOMs intact bilaterally Neck Neck: Yes no lymphadenopathy and Yes supple Thyroid: Thyroid normal Resp Auscultation: clear to auscultation bilaterally, no rales and no wheezes Cardio Rate: regular rate Rhythm: regular rhythm Heart sounds: no murmurs GI Palpation (GI): Soft to palpation, nontender and No hepatosplenomegaly present Auscultation: normal bowel sounds General: Yes no CVA tenderness Back/Spine/Pelvis Back: no CVA tenderness Thoracic/Lumbar Spine: thoracic and lumbar spine normal to inspection Skin Lesions: no lesions Rashes: no rashes Neuro General: patient oriented x3, moves all extremities, no focal motor deficits and CN's II-XI intact bilaterally Cranial nerves: Yes Equal, round and reactive pupils present Cognition (Neuro): normal cognition Gait exam (Neuro): Normal gait present Extrem General: Yes no clubbing, cyanosis or edema Coding Level of Care Code Est Pt Prev Care 40-64y(22180) Diagnoses Annual physical exam Z00.00 Sprain of left medial ankle joint, sequela S93.422S Encounter type: sequela Hair thinning L65.9 Additional Codes PHQ-9 - 09149 - PHQ-9 Billing: Yes ([id number]) Assessment & Plan Assessment & Plan (1) Annual physical exam: Code(s): Z00.00 - Encounter for general adult medical examination without abnormal findings Category: Medical Plan: Check labs She is up-to-date with her breast cancer screening and is scheduled for her next annual mammography in a couple weeks on 07/28/2024 She is also up-to-date with her yearly gynecology exam and pap smear She did undergo endometrial biopsy back in November 2023 due to abnormal vaginal bleeding - her biopsy came back normal and was she advised then her abnormal bleeding was likely related to her Tamoxifen therapy, which she just discontinued at the time She had her screening colonoscopy last done with Dr. Banks in February 2023 and recalls being advised that her colonoscopy came back normal and her next repeat colonoscopy will be due in 10 years (2032) (2) Sprain of left medial ankle joint: Code(s): S93.422A - Sprain of deltoid ligament of left ankle, initial encounter Category: Medical Qualifiers: Encounter type: sequela Qualified Code(s): S93.422S - Sprain of deltoid ligament of left ankle, sequela Plan: This is the same ankle that she injured back on 03/23/2023 when she sustained a mildly displaced oblique fracture of the distal fibula during a skiing accident in [place] She did not require any surgical intervention and was placed in a walking boot for a while; she then went for physical therapy and rehab for her ankle and states that overall, she did well with conservative Tx but more than a year out from her original injury, she is still experience recurrent pain and discomfort in her left ankle An MRI of the left ankle done a couple of weeks ago revealed (+) grade 1 sprains of the anterior talofibular ligament, deltoid ligament and spring ligament, with no acute fracture and no tendon tear She is currently going for physical therapy again on her left ankle and will continue to follow up regularly with orthopedics or podiatry as scheduled (3) Hair thinning: Code(s): L65.9 - Nonscarring hair loss, unspecified Category: Medical Plan: Patient is concerned that she may have androgenic alopecia She has seen dermatology for this before and was reportedly advised that her hair thinning/hair loss back then was likely related to her Tamoxifen Rx at the time She has been off Tamoxifen now since October 2023 and will be seeing dermatology again for follow up on this sometime later this year Plan To return in 1 year for her next annual physical examination Orders: Orders Lipid Panel 07/09/24 E78.00 - Pure hypercholesterolemia, unspecified, Z00.00 - Encounter for general adult medical examination without abnormal findings TSH reflex Free T4 07/09/24 E78.00 - Pure hypercholesterolemia, unspecified, Z00.00 - Encounter for general adult medical examination without abnormal findings Complete Blood Count Auto Diff 07/09/24 D64.9 - Anemia, unspecified, Z00.00 - Encounter for general adult medical examination without abnormal findings Comprehensive [place]. Panel Fast 07/09/24 E78.00 - Pure hypercholesterolemia, unspecified, Z00.00 - Encounter for general adult medical examination without abnormal findings UA CC w/rflx Micro + Cult 07/09/24 R30.0 - Dysuria, Z00.00 - Encounter for general adult medical examination without abnormal findings Vitamin D 25-OH Total 07/09/24 E55.9 - Vitamin D deficiency, unspecified, Z00.00 - Encounter for general adult medical examination without abnormal findings
--- OUTSIDE RECORDS SUMMARY | 2024-07-09 18:13 | XMS_ITS | Encounter Summary ---
Author Organization [facility] Address [address] [place] [address] Care Team Providers Care Natural Gas Field Processing Supervisor Name Role Phone Sarah Rivera MD Primary Care Provider Unavailabl e Encounter Details Date Type Department Care Team (Late st Contact Info) Description 03/04/2021 Orders Only [address] [address] Lisa Briggs DMD, MD Social History Tobacco Use Types Packs/Day Years Used Date Smoking Tobacco: Never Assessed Comments Unknown Sex and Gender Information Value Date Recorded Sex Assigned at Not on file Legal Sex Female 11:26 AM EST Gender Identity Not on file Sexual Orientation Not on file documented as of this encounter Plan of Treatment Pending Results Name Type Priority Associated Diagnoses Date /Time MRI Outside Image Consult Imaging Routine 03/04/2021 2:31 PM EST Scheduled Orders Name Type Priority Associated Diagnoses Orde r Schedule MRI Outside Image Consult Imaging Routine Expected: 2020, Expires: 03/04/2022 documented as of this encounter Visit Diagnoses Not on filedocumented in this encounter Care Teams Natural [employer] Field Processing Supervisor Relationship Specialty Start Date End Date Sarah Rivera MD [address] [place] [id number] PCP - General Internal Medicine 12/28/20 documented as of this encounter
--- OUTSIDE RECORDS SUMMARY | 2024-07-09 18:13 | XMS_ITS | Patient Health Record ---
Author Organization [facility] Address [address] [place] [address] Care Team Providers Care Digital Strategist Senior Manager Name Role Phone Charlie KENNEDY, [place] Primary Care Provider Norman Villalba Jr Unavailable Allergies No Known Allergies Reason For Referral No Information Medications Medication SIG (Take, Route, Frequency, Duration) Notes [...] the procedure for 1 day 02/27/2023 Active Immunizations Vaccine Route Administration Date Status Comme nts Influenza Unknown 02/07/2023 Administered Social History Tobacco Use: Social History Observation Description Date Details (start date - stop date) Never Smoker NA - NA Tobacco Use/Smoking Question Answer Notes Patient is [...] Never (0 point) Points 1 Interpretation Negative Problems Problem Type SNOMED Code ICD Code Onset Dates Problem Status W/U Status Risk Notes Problem [id number] Colon cancer screening (Z12.11) Active confirmed Problem [id number] Encounter for other preprocedural examination (Z01.818) Active confirmed Plan Of Treatment Future Test Test Name Order Date COLONOSCOPY 02/12/2023 Insurance Providers Payer Name Payer Address Payer Phone Subscriber Number Group Number Insured Name Patient Relationship to Insured Coverage Start Date Coverage End Date BLUE BENEFITS ADMINISTRATORS OF [place] [address] [address] [place] [address] [id number] 1 DINA TELLES Self - patient is the insured Medical (General) History Medical History History ICD Code Family history of breast cancer Anemia Surgical History Surgery Date(Month/Year)
--- OUTSIDE RECORDS SUMMARY | 2024-07-09 18:14 | XMS_ITS | Clinical Summary ---
Author Organization [facility] Address [address] [place] [address] Care Team Providers Care Sap Abap Programmer Name Role Phone Pcp, No MD Primary Care Provider Unavailabl e Social History Tobacco Use Types Packs/Day Years Used Date Smoking Tobacco: Never Assessed Comments Unknown Sex and Gender Information Value Date Recorded Sex Assigned at Not on file Legal Sex Female 11:26 AM EST Gender Identity Not on file Sexual Orientation Not on file Plan of Treatment Health Maintenance Due Date Last Done Comments Breast Cancer Screening 1974 CT Colonography 1974 Colonoscopy 1974 Colorectal Cancer Screening 1974 FIT-DNA (Cologuard) 1974 FIT 1974 FOBT 1974 Flex Sigmoidoscopy - 5y 1974 HIV Screening 1974 DTaP,Tdap,and Td Vaccines (1 - Tdap) 1992 Hepatitis B Vaccines (1 of 3 - 19+ 3-dose series) 1993 Pap Smear 05/26/1995 Cervical Cancer Screening 2004 HPV/Cotest 2004 COVID-19 Vaccine ( - 2023-2 5 season) 2023 Pneumococcal Vaccine, 50+ Ye ars (1 of 1 - PCV) 2024 Zoster Vaccines (1 of 2) 2024 Influenza Vaccine (Season Ended) 2024 HPV Vaccines Aged Out No longer eligi ble based on patient's age to complete this topic Hepatitis A Vaccines Aged Out No long er eligible based on patient's age to complete this topic MMR Vaccines Aged Out No longer eligi ble based on patient's age to complete this topic Meningococcal Vaccine Aged Out No praveen arely eligible based on patient's age to complete this topic Care Teams Sap Abap Programmer Relationship Specialty Start Date End Date Sarah Rivera MD [address] [place] [address] PCP - General Internal Medicine 12/28/20
--- OUTSIDE RECORDS SUMMARY | 2024-07-09 18:14 | XMS_ITS ---
Author Organization [facility] Address [address] [place] [address] Care Team Providers Care Party Supply Specialist Name Role Phone Charlie KENNEDY, Jerry Primary Care Provider Norman Villalba Jr [phone] REASON FOR VISIT screening Encounters Encounter Location Date Provider Diagnosis [facility] Outpatient [address] [place], [place] [id number] 03/07/2023 Norman Banks Jr Encounter for screening colonoscopy Z12.11 ; Colon polyps K63.5 and Other hemorrhoids K64.8 Assessments Encounter Date Diagnosis (ICD Code) Assessment Notes Treatment Notes Treatment Clinical Notes Section Notes 03/07/2023 Encounter for screening colonoscopy (ICD-10 - Z12.11) 03/07/2023 Colon polyps (ICD-10 - K63.5) 03/07/2023 Other hemorrhoids (ICD-10 - K64.8) Plan Of Treatment No Information Progress Notes * DINA TELLESDOB:1975 (49 yo F)Acc No.[id number]:03/07/2023 COLON WITH MAC Patient:?DINA TELLES Provider:?Norman Banks MD :1975???Age:47 Y???Sex:Female D ate:03/07/2023 Address:[address] [place] [address] [facility] Pcp:Jerry Guerra MD Subjective: * Chief Complaints: * ???1. Screening. * Medical History:? Objective: * Vitals:? Assessment: * Assessment: 1.?Encounter for screening c olonoscopy - Z12.11 (Primary)???2.?Colon polyps - K63.5???3.?Other hemorrhoids - K64.8??? Plan: * Treatment: * Procedure Codes:?66442 COLON OSCOPY AND BIOPSY, Modifiers: PT * * The named appointment provid er may or may not be the originator of this progress note, and it is not deemed complete until electronically signed by the appointment provider. Sign off status: Pending * Provider:?Norman Banks MD Date:?1 05/08/2022 Generated for Carina joyner/Cathi/Meñoitting on:?07/09/2024 06:13 PM EDT
--- OUTSIDE RECORDS SUMMARY | 2024-07-09 18:14 | XMS_ITS ---
Author Organization [facility] Address [address] [place] [address] Care Team Providers Care Departmental Shipping Clerk Name Role Phone Charlie KENNEDY, [place] Primary Care Provider Jhonatan Banks Jr, Norman Owens REASON FOR VISIT pathology/ 10 yr colon recall Encounters Encounter Location Date Provider Diagnosis [facility] [address] [place] [address] 03/14/2023 Norman Banks Jr Plan Of Treatment No Information Progress Notes * DINA TELLESDOB:1975 (47 yo F)Acc No.[id number]:03/14/2023 Patient:?DINA TELLES :1975???Age:47 Y???Sex:Female Address:[address] [place], [address] * true * Date:? Generated for Carina joyner/Cathi/eTransmitting on:?07/09/2024 06:13 PM EDT
--- OUTSIDE RECORDS SUMMARY | 2024-07-09 18:14 | XMS_ITS ---
Author Organization [facility] Address [address] [place] [address] Care Team Providers Care Doctor Of Nursing Practice Name Role Phone Charlie KENNEDY, [place] Primary Care Provider Jhonatan Banks Jr, Norman [facility] REASON FOR VISIT scripts to pharmacy Medications Medication SIG (Take, Route, Frequency, Duration) [...] Active Encounters Encounter Location Date Provider Diagnosis [facility] [address] [address] 02/27/2023 Norman Banks Jr Plan Of Treatment Medication Medication Name Sig Start Date Stop Date Notes Dulcolax (colon prep) 5 MG take at 3:00 p.m and 7:00p.m. Orally two tablets twice a day for one day for 1 day 02/27/2023 MiraLax (colon prep) 8.3 oun ce ((238) grams mixed with Gatorade or Crystal Light orally begin at 5:00 p.m. the day before the procedure for 1 day 02/27/2023 Progress Notes * DINA TELLESDOB:1975 (47 yo F)Acc No.[id number]:02/27/2023 Patient:DINA MITCHELL :1975???Age:47 Y???Sex:Female Address:[address] [place] [address] * Refills? Start Dulcolax (colon prep) Tablet Delayed Release, 5 MG, Orally, 4, take at 3:00 p.m and 7:00p.m., two tablets twice a day for one day, 1 day Start MiraLax (colon prep), 8.3 ounce ((238) grams, orally, 1 container, mixed with Gatorade or Crystal Light, begin at 5:00 p.m. the day before the procedure, 1 day, Refills=no refills * true * Date:? Generated for Carina joyner/Cathi/Meñoitting on:?07/09/2024 06:13 PM EDT
== END 2024-07-09 17:16 | disposition home or self-care (01) ==
LOC: HO.HMCH 16:08
PROVIDERS: PCP Internal Medicine; Visit Provider Internal Medicine
DX: Z00.00 Encounter for general adult medical examination without abnormal findings (principal); S93.422S Sprain of deltoid ligament of left ankle, sequela; L65.9 Nonscarring hair loss, unspecified

== ENCOUNTER → 2024-07-09 16:08 | Outpatient (BNVA) | payer OTHER, SELFPAY | PROVIDERS: PCP Internal Medicine; Visit Provider Internal Medicine | DX: Z00.00 Encounter for general adult medical examination without abnormal findings (principal); S93.422S Sprain of deltoid ligament of left ankle, sequela; L65.9 Nonscarring hair loss, unspecified | CPT/HCPCS: 96127 ==

== ENCOUNTER 2024-07-18 07:28 | Outpatient (REF) | payer OTHER, SELFPAY ==
--- OUTSIDE RECORDS SUMMARY | 2024-07-18 07:30 | XMS_ITS | Clinical Summary ---
Author Organization [facility] Address [address] [place] [address] Care Team Providers Care Wardrobe Image Consultant Name Role Phone Pcp, No MD Primary [...] age to complete this topic Care Teams Wardrobe Image Consultant Relationship Specialty Start Date End Date Sarah Rivera MD [address] [place] [address] PCP - General Internal Medicine 12/28/20
--- OUTSIDE RECORDS SUMMARY | 2024-07-18 07:30 | XMS_ITS | Encounter Summary ---
Author Organization [facility] Address [address] [place] [address] Care Team Providers Care Food And Beverage Intern Name Role Phone Sarah Rivera MD Primary Care Provider Unavailabl e Encounter Details Date Type Department Care Team (Late st Contact Info) Description 03/04/2021 Orders Only [address] [address] Lisa Briggs DMD, MD Social History Tobacco [...] on filedocumented in this encounter Care Teams Food And Beverage Intern Relationship Specialty Start Date End Date Sarah Rivera MD [address] [place] [address] PCP - General Internal Medicine 12/28/20 documented as of this encounter
[2024-07-18 07:44] LABS: MANUAL DIFF FLAG NO
[2024-07-18 08:26] LABS: Basophils Absolute Auto 0.1 X10*3/uL (0.0-0.2); Basophils Percent Auto 1.2 % (0-2); Eosinophils Absolute Auto 0.1 X10*3/uL (0.0-0.4); Eosinophils Percent Auto 1.9 % (0-4); Hematocrit 38.1 % (37.0-47.0); Hemoglobin 12.9 g/dl (12.0-16.0); Imm Gran Abs Auto 0.01 X10*3/uL (0.00-0.03); Imm Gran Pct Auto 0.2 % (0.0-0.4); Lymphocytes Absolute Auto 1.8 X10*3/uL (1.2-4.9); Lymphocytes Percent Auto 43.5 % (20-40); Mean Corpuscular HGB Conc 33.9 g/dl (31.0-35.0); Mean Corpuscular Hemoglobin 32.7 pg (27.0-33.0); Mean Corpuscular Volume 96.7 fL (80.0-98.0); Mean Platelet Volume 10.1 fL (9.4-12.3); Monocytes Absolute Auto 0.3 X10*3/uL (0.1-1.2); Monocytes Percent Auto 7.8 % (2-11); Neutrophils Absolute Auto 1.9 x10*3/uL (2.0-8.3); Neutrophils Percent Auto 45.4 % (45-73); Platelet Count 299 X10*3/uL (160-400); Red Blood Count 3.94 X10*6/uL (4.20-5.50); Red Cell Distribution Width 12.3 % (11.0-16.0); White Blood Count 4.2 X10*3/uL (4.8-10.8)
[2024-07-18 08:37] LABS: Appearance Urine Clear; Color Urine Yellow; Glucose Urine UA Negative (Negative); Leukocyte Esterase Urine Trace (Negative); Nitrite Urine Negative (Negative); PH 7.5 (5.0-9.0); Specific Gravity - Urine <= 1.005 (1.005-1.025); UMIC TRIGGER UACC YES; Urine Blood Moderate (2+) (Negative); Urine Ketones Negative (Negative); Urine Protein Negative (Neg-Trace)
[2024-07-18 08:58] LABS: Bacteria Urine None Seen (None Seen); Hyaline Casts Urine 0-2 /LPF (0-2); WBC Urine 0-5 /HPF (0-5)
[2024-07-18 09:00] LABS: Alanine Aminotransferase 25 U/L (0-31); Albumin Level 4.5 g/dL (3.5-5.0); Alkaline Phosphatase 47 U/L (39-117); Anion Gap 9 (12-20); Aspartate Amino Transferase 29 U/L (5-31); Bilirubin Total 0.4 mg/dL (0.0-1.0); Blood Urea Nitrogen 22 mg/dL (9-16); Calcium 9.6 mg/dL (8.4-10.2); Carbon Dioxide 28 mmol/L (22-29); Chloride 105 mmol/L (96-108); Cholesterol 175 mg/dL (<200); Estimated Glomerular Filt Rate > 60; Glucose Fasting 97 mg/dL (60-99); HDL Cholesterol 53 mg/dL (>40); LDL Cholesterol Calculated 109 mg/dL (<100); Sodium 138 mmol/L (135-145); Total Protein 7.4 g/dL (6.5-8.0); Triglycerides 66 mg/dL (<150)
[2024-07-18 09:20] LABS: TSH reflex Free T4 2.65 uIU/mL (0.32-4.0); Vitamin D 25-OH Total 77.9 ng/mL (>30)
== END 2024-07-18 07:29 | disposition home or self-care (01) ==
LOC: HO.LAB 07:28
PROVIDERS: PCP Internal Medicine; Visit Provider Internal Medicine
DX: Z00.00 Encounter for general adult medical examination without abnormal findings (principal); D64.9 Anemia, unspecified; E78.00 Pure hypercholesterolemia, unspecified; E55.9 Vitamin D deficiency, unspecified
CPT/HCPCS: 36415; 80053; 80061; 81001; 82306; 84443; 85025

== ENCOUNTER 2024-07-28 10:46 | Outpatient (REF) | payer OTHER, SELFPAY ==
--- NOTE | ~2024-07-28 | MM_ITS ---
EXAMINATION: MM SCREENING DIGITAL BREAST TOMOSYNTHESIS, BILATERAL CLINICAL INFORMATION: Screening. Asymptomatic. COMPARISON: Mammography: Comparison is made with available priors TECHNIQUE: Digital breast mammography with tomosynthesis is performed in both the craniocaudal and mediolateral oblique views along with computer-aided detection (CAD). FINDINGS: The breasts are heterogeneously dense, which may obscure small masses (ACR BI-RADS breast composition Category c). Bilateral marker clips. There are no significant masses, abnormal calcifications, or other abnormalities. MM/MM tomosynthesis screening BI IMPRESSION: No mammographic evidence of malignancy. ASSESSMENT: BI-RADS BI-RADS 2 - Benign Findings RECOMMENDATION: Routine annual mammography screening. 1 year F/U This examination should not preclude the clinical evaluation of a suspicious palpable abnormality. This patient's information was entered into a reminder system with a target due date for their next mammogram. Electronically signed by: Bee Rodriguez DO 07/28/2024 01:35 PM EDT
--- OUTSIDE RECORDS SUMMARY | 2024-07-28 12:15 | XMS_ITS ---
Author Organization [facility] Address [address] [place] [address] Care Team Providers Care Fire Assistant Name Role Phone Charlie KENNEDY, [place] Primary Care Provider Jhonatan Banks Jr, Norman Owens REASON FOR VISIT pathology/ 10 yr colon recall Encounters Encounter Location Date Provider Diagnosis [facility] [address] [place] [address] 03/14/2023 Norman Banks Jr Plan Of Treatment No Information Progress Notes * DINA TELLESDOB:1975 (47 yo F)Acc No.[id number]:03/14/2023 Patient:?DINA TELLES :1975???Age:47 Y???Sex:Female Address:[address] [place], [address] * true * Date:? Generated for Carina joyner/Cathi/eTransmitting on:?07/28/2024 12:15 PM EDT
--- OUTSIDE RECORDS SUMMARY | 2024-07-28 12:15 | XMS_ITS | Patient Health Record ---
Author Organization [facility] Address [address] [place] [address] Care Team Providers Care Casting Carrier Name Role Phone Charlie KENNEDY, [place] Primary Care Provider Norman Villalba Jr Unavailable [phone] Allergies No Known Allergies Reason For Referral [...] Problem Status W/U Status Risk Notes Problem [id number] Colon cancer screening (Z12.11) Active confirmed Problem 695930614 Encounter for other preprocedural examination (Z01.818) Active confirmed Plan Of Treatment Future Test Test Name Order Date COLONOSCOPY 02/12/2023 Insurance Providers Payer Name Payer Address Payer Phone Subscriber Number Group Number Insured Name Patient Relationship to Insured Coverage Start Date Coverage End Date BLUE [employer]EFITS ADMINISTRAT[employer] [place] [address] [address] [place] [address] [id number] 1 DINA TELLES Self - patient is the insured Medical (General) History Medical History History ICD Code Family history of breast cancer Anemia Surgical History Surgery Date(Month/Year)
--- OUTSIDE RECORDS SUMMARY | 2024-07-28 12:15 | XMS_ITS | Encounter Summary ---
Author Organization [facility] Address [address] [place] [address] Care Team Providers Care Calculating Machine Mechanic Name Role Phone Sarah Rivera MD Primary Care Provider Unavailabl e Encounter Details Date Type Department Care Team (Late st Contact Info) Description 03/04/2021 Orders Only [address] [address] Lisa Briggs DMD, MD Social History Tobacco [...] on filedocumented in this encounter Care Teams Calculating Machine Mechanic Relationship Specialty Start Date End Date Sarah Rivera MD [address] [place] [address] PCP - General Internal Medicine 12/28/20 documented as of this encounter
--- OUTSIDE RECORDS SUMMARY | 2024-07-28 12:16 | XMS_ITS ---
Author Organization [facility] Address [address] [place] [address] Care Team Providers Care Stave Block Roller Name Role Phone Charlie KENNEDY, Jerry Primary Care Provider Norman Villalba Jr [phone] REASON FOR VISIT screening Encounters Encounter Location Date Provider Diagnosis [facility] [place] [address] [place], [place] [phone] 03/07/2023 Norman Banks Jr Encounter for screening [...] Notes * DINA TELLESDOB:1975 (49 yo F)Acc No.[id number]:03/07/2023 COLON WITH MAC Patient:?DINA TELLES Provider:?Norman Banks MD :1975???Age:47 Y???Sex:Female D ate:03/07/2023 Address:[address] [place] [address] [facility] Pcp:Jerry Guerra MD Subjective: * Chief Complaints: * ???1. Screening. * Medical History:? Objective: * Vitals:? Assessment: * Assessment: 1.?Encounter for screening c olonoscopy - Z12.11 (Primary)???2.?Colon polyps - K63.5???3.?Other hemorrhoids - K64.8??? Plan: * Treatment: * Procedure Codes:?74859 COLON OSCOPY AND BIOPSY, Modifiers: PT * * The named appointment provid er may or may not be the originator of this progress note, and it is not deemed complete until electronically signed by the appointment provider. Sign off status: Pending * Provider:?Noramn Banks MD Date:?1 05/08/2022 Generated for Carina joyner/Cathi/Meñoitting on:?07/28/2024 12:15 PM EDT
--- OUTSIDE RECORDS SUMMARY | 2024-07-28 12:16 | XMS_ITS ---
Author Organization [facility] Address [address] [place] [address] Care Team Providers Care Applications Scientist Name Role Phone Charlie KENNEDY, [place] Primary Care Provider Jhonatan Banks Jr, Norman [facility] REASON FOR VISIT scripts to pharmacy Medications [...] Active Encounters Encounter Location Date Provider Diagnosis [facility] [address] [address] 02/27/2023 Norman Banks Jr Plan Of Treatment [...] Notes * DINA TELLESDOB:1975 (47 yo F)Acc No.[id number]:02/27/2023 Patient:DINA MITCHELL :1975???Age:47 Y???Sex:Female Address:[address] [place] [address] * Refills? Start Dulcolax (colon prep) Tablet [...] true * Date:? Generated for Carina joyner/Cathi/Meñoitting on:?07/28/2024 12:15 PM EDT
--- OUTSIDE RECORDS SUMMARY | 2024-07-28 12:16 | XMS_ITS | Clinical Summary ---
Author Organization [facility] Address [address] [place] [address] Care Team Providers Care Flaking Roll Operator Name Role Phone Pcp, No MD Primary [...] age to complete this topic Care Teams Flaking Roll Operator Relationship Specialty Start Date End Date Sarah Rivera MD [address] [place] [address] PCP - General Internal Medicine 12/28/20
== END 2024-07-28 10:47 | disposition home or self-care (01) ==
LOC: HO.MAMMO 10:46
PROVIDERS: PCP Internal Medicine; Visit Provider Internal Medicine
DX: Z12.31 Encounter for screening mammogram for malignant neoplasm of breast (principal)
CPT/HCPCS: 77063; 77067

== ENCOUNTER → 2024-07-28 11:15 | Outpatient (BNV) | payer OTHER, SELFPAY | PROVIDERS: PCP Internal Medicine; Visit Provider Internal Medicine | DX: Z12.31 Encounter for screening mammogram for malignant neoplasm of breast (principal) | CPT/HCPCS: 77063; 77067 ==

== ENCOUNTER 2024-08-13 11:57 | Outpatient (RCR) | payer OTHER, SELFPAY | END 2024-10-08 13:04 | disposition home or self-care (01) | LOC: HO.PT 11:57 | PROVIDERS: PCP Internal Medicine; Visit Provider Orthopaedic Surgery Foot and Ankle Surgery | DX: S93.422A Sprain of deltoid ligament of left ankle, initial encounter (principal) | CPT/HCPCS: 97035; 97110; 97140; 97161; 97530 ==

== ENCOUNTER → 2024-12-17 13:28 | Outpatient (BNV) | payer OTHER, SELFPAY | PROVIDERS: PCP Internal Medicine; Visit Provider Internal Medicine | DX: Z80.3 Family history of malignant neoplasm of breast (principal) | CPT/HCPCS: 77049 ==

== ENCOUNTER 2024-12-17 14:33 | Outpatient (REF) | payer OTHER, SELFPAY ==
--- NOTE | ~2024-12-17 | MR_ITS ---
EXAMINATION: MR BREAST WITHOUT AND WITH CONTRAST, BILATERAL CLINICAL INFORMATION: High risk screening. Family history of breast cancer including sister diagnosed at age 38. COMPARISON: Comparison is made with relevant prior imaging. TECHNIQUE: MR imaging of the breast was performed using T1, T2 and fat saturated techniques. Dynamic multiphase imaging was also performed after the administration of intravenous gadolinium contrast agent. Computer generated 3D reconstruction and enhancement kinetic analysis was ulitized by the radiologist in the interpretation of this examination. FINDINGS: Breast composition: Heterogeneous fibroglandular breast tissue Background parenchymal enhancement: Moderate LEFT BREAST: No suspicious enhancing masses or areas of non mass enhancement. No axillary or internal mammary adenopathy. RIGHT BREAST: No suspicious enhancing masses or areas of non mass enhancement. No axillary or internal mammary adenopathy. Limited views of the chest and abdomen are unremarkable. MR/MR breast BI wo/w con IMPRESSION: No MR specific evidence of malignancy. ASSESSMENT: LEFT BREAST: BI-RADS 1-Negative RIGHT BREAST: BI-RADS 1-Negative RECOMMENDATIONS: Yearly screening mammography Yearly Breast MRI screening surveillance. Electronically signed by: Bee Rodriguez DO 12/17/2024 08:18 PM EDT
--- OUTSIDE RECORDS SUMMARY | 2024-12-17 17:13 | XMS_ITS | Encounter Summary ---
Author Organization [facility] Address [address] [place] [address] Phone Care Team Providers Care Parking Meter Mechanic Name Role Phone Unknown, Unknown Primary Care Provider Josue Shane MD Primary Care Provider [phone] Encounter Details Date Type Department Care Team (Late st Contact Info) Description 04/03/[address] [facility] [address] [place] [address] Social History Tobacco Use Types Packs/Day Years Used Date Smoking Tobacco: Never Comments Unknown Sex and Gender Information Value Date Recorded Sex Assigned at Female 01/29/2023 3:56 PM EST Legal Sex Female 11:25 AM EDT Gender Identity Female 01/29/2023 3:56 PM EST Sexual Orientation Straight 01/29/2023 3: 56 PM EST documented as of this encounter Plan of Treatment Not on file documented as of this encounter Visit Diagnoses Not on filedocumented in this encounter Care Teams Parking Meter Mechanic Relationship Specialty Start Date End Date Unknown, Unknown, PCP - General 03/08/18 01/28/23 Josue Padron MD [address] [place] [address] PCP - General Obstetrics and Gynecology 01/29/23 documented as of this encounter Additional Source Comments The information contained in this document represents components of the legal health record. It is not the complete legal health record.[facility]
--- OUTSIDE RECORDS SUMMARY | 2024-12-17 17:13 | XMS_ITS | Clinical Summary ---
Author Organization [facility] Address [address] [place] [address] Phone Care Team Providers Care Extension Division Director Name Role Phone Rylan Padron MD Primary Care Provider [phone] Allergies No known active allergies Medications tamoxifen (NOLVADEX) 20 MG tablet 3 Active methylPREDNISol one (MEDROL DOSEPACK) 4 mg tablet follow package directions 21 tablet 4 Active oxyCODONE 5 MG immediate release tablet Take 0.5-1 tablets (2.5-5 mg total) by mouth every 6 (six) hours as needed. 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 Not on magali e 07/21/2022 Are you concerned about learning? Not on file 07/21/2022 No 07/21/2022 No 07/21/2022 Digital Access Answer Date Recorded No 08/21/2022 No 08/21/2022 Reliable internet access at home? Not on file 08/21/2022 Device with a working camera? Not on file Intimate Partner Violence Answer Date R ecorded Are you denied basic needs s uch as food, clothing, or medical care? No 05/04/2023 In the past 12 months have y ou been in a relationship with a person who hurts, threatens, or tries to control you? No 05/04/2023 Are you denied basic needs s uch as food, clothing, or medical care? No 05/04/2023 In the past 12 months have y ou been in a relationship with a person who hurts, threatens, or tries to control you? No 05/04/2023 Comments No Sex and Gender Information Value Date Recorded Sex Assigned at Female 01/29/2023 3:56 PM EST Legal Sex Female 11:25 AM EDT Gender Identity Female 01/29/2023 3:56 PM EST Sexual Orientation Straight 01/29/2023 3: 56 PM EST Last Filed Vital Signs Vital Sign Reading Time Taken Comments Blood Pressure 95/52 05/12/2023 2:22 AM EST Pulse 60 05/12/2023 2:22 AM EST Temperature 36.7 C (98.1 F) 05/12/2023 2:22 AM EST Respiratory Rate 16 05/12/2023 2:22 AM EST Oxygen Saturation 99% 05/12/2023 2:22 AM EST Inhaled Oxygen Concentration - - Weight 56.7 kg (125 lb) 05/11/2023 6:12 AM EST Height 167.6 cm (5' 6 ) 05/11/2023 6:12 AM EST Body Mass Index 20.18 05/11/2023 6:12 AM EST Plan of Treatment Health Maintenance Due Date Last Done Comments Adult Td,Tdap Booster 1974 LIPID PANEL 1974 DEPRESSION SCREENING 1986 HEPATITIS C SCREENING 1992 HIV ONE-TIME SCREENING (18-65 YEARS) 1992 PAP SMEAR 05/26/1995 COLOGUARD 05/26/2019 COLONOSCOPY 05/26/2019 COLORECTAL CANCER SCREENING 05/26/2019 FIT TEST 05/26/2019 FOBT 05/26/2019 SIGMOIDOSCOPY 05/26/2019 VIRTUAL COLONOSCOPY 05/26/2019 MAMMOGRAM 01/31/2020 01/30/2018, 07/2017, 11/22/2017, Additional history exists PNEUMOCOCCAL VACCINES (50+ years) (1 of 1 - PCV) 2024 ZOSTER VACCINES (1 of 2) 2024 INFLUENZA VACCINE (#1) 2024 12/15/2019, 2017 COVID-19 VACCINE (3 - 2024- season) 2024 05/19/2020, 04/28/2020 SMOKING STATUS SCREENING (Once After 26 Yrs) Completed 05/04/2023 HEPATITIS A VACCINES Aged Out No long er eligible based on patient's age to complete this topic HIB VACCINES Aged Out No longer eligi ble based on patient's age to complete this topic MENINGOCOCCAL VACCINES (ACWY) Aged Out No longer eligible based on patient's age to complete this topic MENINGOCOCCAL VACCINES (B) Aged Out N o longer eligible based on patient's age to complete this topic Medical Devices Not on file Procedures Procedure Name Priority Date/Time Associated Diagnosis Comments BI MRI BREAST OUTSIDE (NO INTERPRETATION) Routine 01/30/2018 12:00 AM EST from Last 3 Months or Most Recently Relevant to Health Maintenance Results * MRI Breast Outside (No Interpretation) (01/30/2018 12:00 AM EST) Narrative [facility] IMG INTERFACES - 04/03/2018 11:23 AM EST This study is for PACS storage only and not for interpretation. us Nicho Palacios MD IMG OUTSIDE IMAGING W/OUT INTERPRETATION Final Result [facility] [place] [facility]G INTERFACES from Last 3 Months or Most Recently Relevant to Health Maintenance Insurance [employer] ADMINISTRATORS [email or web address]ENEF[employer] ADMINISTRATORS [employer] ADMINISTRATORS [employer] BENEF[employer] ADMINISTRATORS [employer] [facility] ADMINISTRATORS [email or web address]ENEF[employer] ADMINISTRATORS Care Teams Extension Division Director Relationship Specialty Start Date End Date Rylan Padron MD [address] [place] [address] PCP - General Obstetrics and Gynecology 01/29/23 Additional Source Comments The information contained in this document represents components of the legal health record. It is not the complete legal health record.[facility]
--- OUTSIDE RECORDS SUMMARY | 2024-12-17 17:13 | XMS_ITS | Encounter Summary ---
Author Organization [facility] Address [address] [place] [address] Phone Care Team Providers Care Stripper And Taper Name Role Phone Josue Padron MD Primary Care Provider [phone] Encounter Details Date Type Department Care Team (Late st Contact Info) Description 05/11/2023 Procedure Pass [facility] [address] [place] [address] Social History Tobacco Use Types Packs/Day Years Used Date Smoking Tobacco: Never Smokeless Tobacco: Never Education Answer Date Recorded Are you interested [...] on filedocumented in this encounter Care Teams Stripper And Taper Relationship Specialty Start Date End Date Josue Padron MD [address] [place] [address] PCP - General Obstetrics and Gynecology 01/29/23 documented as of this encounter Additional Source Comments The information contained in this document represents components of the legal health record. It is not the complete legal health record.[facility]
--- OUTSIDE RECORDS SUMMARY | 2024-12-17 17:14 | XMS_ITS | Clinical Summary ---
Author Organization [facility] Address [address] [place] [address] Care Team Providers Care Bakery Worker Conveyor Line Name Role Phone Pcp, No MD Primary [...] 05/26/1995 Cervical Cancer Screening 2004 HPV/Cotest 2004 Pneumococcal Vaccine, 50+ Ye ars (1 of 1 - PCV) 2024 Zoster Vaccines (1 of 2) 2024 COVID-19 Vaccine ( - 2023-2 5 season) 2024 Influenza Vaccine (#1) 2024 HPV Vaccines Aged Out No longer [...] age to complete this topic Care Teams Bakery Worker Conveyor Line Relationship Specialty Start Date End Date Sarah Rivera MD [address] [place] [address] PCP - General Internal Medicine 12/28/20
--- OUTSIDE RECORDS SUMMARY | 2024-12-17 17:14 | XMS_ITS | Encounter Summary ---
Author Organization [facility] Address [address] [place] [address] Care Team Providers Care Hand Engraver Name Role Phone Sarah Rivera MD Primary Care Provider Unavailabl e Encounter Details Date Type Department Care Team (Late st Contact Info) Description 03/04/2021 Orders Only [address] [address] Lisa Briggs DMD, MD Social History Tobacco [...] on filedocumented in this encounter Care Teams Hand Engraver Relationship Specialty Start Date End Date Sarah Rivera MD [address] [place] [id number] PCP - General Internal Medicine 12/28/20 documented as of this encounter
--- OUTSIDE RECORDS SUMMARY | 2024-12-17 17:14 | XMS_ITS | Encounter Summary ---
Author Organization [facility] Address [address] [place] [address] Phone Care Team Providers Care Yarn Dumper Name Role Phone Unknown, Unknown Primary Care Provider Josue Shane MD Primary Care Provider [phone] Encounter Details Date Type Department Care Team (Late st Contact Info) Description 04/03/2018 Procedure Pass [facility] [address] [place] [address] Social History Tobacco Use Types Packs/Day Years [...] on filedocumented in this encounter Care Teams Yarn Dumper Relationship Specialty Start Date End Date Unknown, Unknown, PCP - General 03/08/18 01/28/23 Josue Padron MD [address] [place] [address] PCP - General Obstetrics and Gynecology 01/29/23 documented as of this encounter Additional Source Comments The information contained in this document represents components of the legal health record. It is not the complete legal health record.[facility]
--- OUTSIDE RECORDS SUMMARY | 2024-12-17 17:14 | XMS_ITS | Patient Health Record ---
Author Organization [facility] Address [address] [place] [id number] Care Team Providers Care Apprenticeship Training Representative Name Role Phone Charlie KENNEDY, [place] Primary Care Provider Norman Villalba Jr Unavailable [...] Problem Status W/U Status Risk Notes Problem [id number] Colon cancer screening (Z12.11) Active confirmed Problem [id number] Encounter for other preprocedural examination (Z01.818) Active confirmed Plan Of Treatment Future Test Test Name Order Date COLONOSCOPY 02/12/2023 Insurance Providers Payer Name Payer Address Payer Phone Subscriber Number Group Number Insured Name Patient Relationship to Insured Coverage Start Date Coverage End Date [employer] [place] [address] [address] [place] [address] [id number] DINA TELLES Self - patient is the insured Medical (General) History Medical History History ICD Code Family history of breast cancer Anemia Surgical History Surgery Date(Month/Year)
== END 2024-12-17 14:34 | disposition home or self-care (01) ==
LOC: HO.MRI 14:33
PROVIDERS: PCP Internal Medicine; Visit Provider Obstetrics & Gynecology
DX: Z12.39 Encounter for other screening for malignant neoplasm of breast (principal); Z80.3 Family history of malignant neoplasm of breast
CPT/HCPCS: 77049; A9585